=== PATIENT | female | born 1965 | race Caucasian/White ===

== ENCOUNTER → 2016-08-03 | Outpatient (CLI) | payer OTHER ==
[2016-08-03 09:00] LABS: CHLORIDE,CL 106 mmol/L (98-110); SODIUM,NA 143 mmol/L (136-146)
== END ==
LOC: MW.CHFP 08:20
PROVIDERS: ATTEND Student in an Organized Health Care Education/Training Program
DX: I10 Essential (primary) hypertension (principal); E11.65 Type 2 diabetes mellitus with hyperglycemia
CPT/HCPCS: 36415; 80053; 80061; 82044; 83036

== ENCOUNTER 2016-09-16 17:25 | Emergency (ER) | payer OTHER ==
--- NOTE | 2016-09-16 17:54 | EDM.PDOC ---
ED HPI GENERAL MEDICAL PROBLEM - General Chief Complaint: General Stated Complaint: TOOTH PAIN Time Seen by Provider: 09/16/16 17:44 Source of Information: Reports: Patient History Limitations: Reports: No Limitations - History of Present Illness INITIAL COMMENTS - FREE TEXT/NARRATIVE: HISTORY AND PHYSICAL: [] History of Present Illness: [] Review of Systems: As per history of present illness and below otherwise all systems reviewed and negative. Past medical history: As per history of present illness and as reviewed below otherwise noncontributory. Surgical history: As per history of present illness and as reviewed below otherwise noncontributory. Social history: No reported history of drug or alcohol abuse. Family history: As per history of present illness and as reviewed below otherwise noncontributory. Physical exam: HEENT: Atraumatic, normocehpalic, pupils reactive, negative for conjunctival pallor or scleral icterus, mucous membranes moist, throat clear, neck supple, nontender, trachea midline. tooth #14 fractured Lungs: Clear to auscultation, breath sounds equal bilaterally, chest non tender. Heart: S1S2, regular, negative for clicks, rubs, or JVD. Abdomen: Soft, nondistended, nontender. Negative for masses or hepatossplenmegaly. Negative for costovertebral tenderness. Pelvis: Stable nontender. Genitourinary: Deferred. Rectal: Deferred Extremities: Atraumatic, negative for cords or calf pain. Neurovascular unremarkable. Neuro: Awake, alert, oriented. Cranial nerves II through XII unremarkable. Cerebellum unremarkable. Motor and sensory unremarkable throughout. Exam nonfocal. Diagnostics: [] Therapeutics: [tooth cement] Impression: [fractured tooth] Plan: [dental balls home see a dentist for repair of tooth #14] Definitive disposition and diagnosis as appropriate pending reevaluation and review of above. Duration: Hour(s): Location: Reports: Face Quality: Reports: Throbbing Severity: Moderate Improves with: Reports: None Worsens with: Reports: None Associated Symptoms: Reports: No Other Symptoms - Related Data Allergies Allergy/AdvReac Type Severity Reaction Status Date / Time No Known Allergies Allergy Verified 09/16/16 17:49 Home Meds: Home Meds Hydrochlorothiazide 12.5 mg PO DAILY 09/16/16 [History] buPROPion HCl [Wellbutrin Xl] 300 mg PO DAILY 09/16/16 [History] metFORMIN HCl [Metformin HCl] 500 mg PO BID 09/16/16 [History] ED ROS GENERAL - Review of Systems Review Of Systems: ROS reveals no pertinent complaints other than HPI. ED EXAM, GENERAL - Physical Exam Exam: See Below (see dictation) Departure - Departure Time of Disposition: 18:26 Disposition: Home, Self-Care 01 Condition: good Clinical Impression: Fractured tooth Qualifiers: Encounter type: initial encounter Fracture type: open Qualified Code(s): S02.5XXB - Fracture of tooth (traumatic), initial encounter for open fracture - Discharge Information Forms: ED Department Discharge Additional Instructions: The following information is given to patients seen in the emergency department who are being discharged to home. This information is to outline your options for follow-up care. We provide all patients seen in our emergency department with a follow-up referral. The need for follow-up, as well as the timing and circumstances, are variable depending upon the specifics of your emergency department visit. If you don't have a primary care physician on staff, we will provide you with a referral. We always advise you to contact your personal physician following an emergency department visit to inform them of the circumstance of the visit and for follow-up with them and/or the need for any referrals to a consulting specialist. The emergency department will also refer you to a specialist when appropriate. This referral assures that you have the opportunity for followup care with a specialist. All of these measure are taken in an effort to provide you with optimal care, which includes your followup. Under all circumstances we always encourage you to contact your private physician who remains a resource for coordinating your care. When calling for followup care, please make the office aware that this follow-up is from your recent emergency room visit. If for any reason you are refused follow-up, please contact the [facility] emergency department at and asked to speak to the emergency department charge nurse. You must see a dentist to have this fractured tooth repaired Dental bowels will be given to you here apply as needed for discomfort
[2016-09-16] MEDS ORDERED: Benzocaine 20% Topical Spray UD MUCMEM ONE (18:27)
[2016-09-16] MEDS ORDERED: Lidocaine 2% Viscous Solution 15 ML Cup PO ONE (18:27)
[2016-09-16 18:41] VITALS: BP 147/68
== END 2016-09-16 18:39 | disposition home or self-care (01) ==
LOC: MW.ED 17:25
DX: S02.5XXB Fracture of tooth (traumatic), initial encounter for open fracture (principal); Z79.899 Other long term (current) drug therapy; X58.XXXA Exposure to other specified factors, initial encounter
CPT/HCPCS: 99282; A9270

== ENCOUNTER 2017-06-28 11:56 | Day surgery (SDC) | payer OTHER ==
[~2017-06-28 11:56] MED LIST: Acetaminophen/HYDROcodone 325-5 MG Tab PO PRN; Lactated Ringers 1,000 ML IV SCH; Lidocaine 1% 20 ML MDV ONE; ceFAZolin 2 GM in Premix Bag 1 BAG IV SCH
[2017-06-28] MEDS ORDERED: Lidocaine 2% 5 ML SDV ONE (12:27)
[2017-06-28] MEDS ORDERED: Midazolam 1 MG/ML 2 ML SDV ONE (12:27)
[2017-06-28] MEDS ORDERED: Propofol 200 MG/20 ML SDV ONE (12:27)
[2017-06-28] MEDS ORDERED: Dexamethasone 4 MG/ML 5 ML MDV ONE (12:27)
[2017-06-28] MEDS ORDERED: fentaNYL 250 MCG/5 ML SDV ONE (12:27)
[2017-06-28] MEDS ORDERED: Ondansetron 4 MG/2 ML SDV ONE (12:27)
--- NOTE | 2017-06-28 14:39 | PCM.PREANE ---
Preanesthetic Assessment - Anesthesia/Transfusion/Family Hx Anesthesia History: Prior Anesthesia Without Reaction Other Type of Anesthesia Reaction Comment: "I am hard to wake & at times have N& V after surgery" Family History of Anesthesia Reaction: No Transfusion History: No Prior Transfusion(s) - Review of Systems Other: Reports: None - Physical Assessment NPO Status Date: 06/28/17 NPO Status Time: 04:00 O2 Sat by Pulse Oximetry: 95 Respiratory Rate: 16 Vital Signs: Last Vital Signs Temp 36.7 C 06/28/17 13:45 Pulse 75 06/28/17 13:45 Resp 16 06/28/17 13:45 BP 178/93 H 06/28/17 13:45 Pulse Ox 95 06/28/17 13:45 Height: 5 ft 3 in Weight: 99.79 kg ASA Class: 3 Mental Status: Alert & Oriented x3 Airway Class: Mallampati = 1 Dentition: Reports: Normal Dentition Thyro-Mental Finger Breadths: 2 Mouth Opening Finger Breadths: 3 ROM/Head Extension: Full - Allergies Allergies/Adverse Reactions: Allergies Allergy/AdvReac Type Severity Reaction Status Date / Time No Known Allergies Allergy Verified 06/26/17 08:13 - Blood Blood Available: No - Acknowledgements Anesthesia Type Planned: General Anesthesia (LMA) Pt an Appropriate Candidate for the Planned Anesthesia: Yes Alternatives and Risks of Anesthesia Discussed w Pt/Guardian: Yes Pt/Guardian Understands and Agrees with Anesthesia Plan: Yes PreAnesthesia Questionnaire Cardiovascular History: Reports: Hypertension Gastrointestinal History: Reports: Other (See Below) Other Gastrointestinal History: occasional heartburn Genitourinary History: Reports: Renal Calculus 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: Musculoskeletal History: Reports: Osteoarthritis Psychiatric History: Reports: Anxiety, Depression Endocrine/Metabolic History: Reports: Diabetes, Type II, Obesity/BMI 30+ Dermatologic History: Reports: Psoriasis - Past Surgical History Head Surgeries/Procedures: Reports: None GI Surgical History: Reports: Cholecystectomy, Hernia, Abdominal Female Surgical History: Reports: Hysterectomy, Tubal Ligation Musculoskeletal Surgical History: Reports: Arthroscopic Knee - SUBSTANCE USE Smoking Status *Q: Former Smoker Second Hand Smoke Exposure: No Recreational Drug Use History: No - HOME MEDS Home Medications: Home Meds Hydrochlorothiazide 12.5 mg PO DAILY 09/16/16 [History] buPROPion HCl [Wellbutrin Xl] 300 mg PO DAILY 09/16/16 [History] metFORMIN HCl [Metformin HCl] 500 mg PO BID 09/16/16 [History] Ibuprofen 3 tab PO ASDIRECTED PRN 06/26/17 [History] Lisinopril 10 mg PO DAILY 06/26/17 [History] Acetaminophen/HYDROcodone [[place] 325-5 MG] 1 - 2 tab PO Q4H PRN #80 tablet 06/28 [Rx] - CURRENT (IN HOUSE) MEDS Current Meds: Current Medications Hydrocodone Bitart/Acetaminophen ([place] 325-5 Mg) 1 - 2 tab PO Q4H PRN PRN Reason: Pain Cefazolin Sodium/Dextrose 2 gm (/ Premix) 50 mls @ 100 mls/hr IV ONCALL IAN Lactated Ringer's (Ringers, Lactated) 1,000 mls @ 100 mls/hr IV ASDIRECTED IAN Discontinued Medications Dexamethasone (Dexamethasone) Confirm Administered Dose 20 mg .ROUTE .STK-MED ONE Stop: 06/28/17 12:28 Fentanyl (Sublimaze) Confirm Administered Dose 250 mcg .ROUTE .STK-MED ONE Stop: 06/28/17 12:28 Lidocaine (Xylocaine-Mpf 2%) Confirm Administered Dose 5 ml .ROUTE .STK-MED ONE Stop: 06/28/17 12:28 Lidocaine HCl (Xylocaine 1%) Confirm Administered Dose 20 ml .ROUTE .STK-MED ONE Stop: 06/28/17 07:31 Midazolam HCl (Versed 1 Mg/Ml) Confirm Administered Dose 2 mg .ROUTE .STK-MED ONE Stop: 06/28/17 12:28 Ondansetron HCl (Zofran) Confirm Administered Dose 4 mg .ROUTE .STK-MED ONE Stop: 06/28/17 12:28 Propofol (Diprivan 20 Ml) Confirm Administered Dose 200 mg .ROUTE .STK-MED ONE Stop: 06/28/17 12:28
[2017-06-28] MEDS ORDERED: Ketorolac 30 MG/ML SDV ONE (14:44)
[2017-06-28] MEDS ORDERED: Labetalol 100 MG/20 ML MDV ONE (14:52)
--- NOTE | 2017-06-28 15:13 | PCM.OPNOTE ---
- General Post-Op/Procedure Note Date of Surgery/Procedure: 06/28/17 Operative Procedure(s): L knee scope with PLM/PMM Post-Op Diagnosis: DJD left knee, left knee med/lat meniscus tear Anesthesia Technique: General LMA Primary Surgeon: Sneha Montague Technical Documentation Specialist: Sravani Auguste in mLs: 5 Condition: Good Free Text/Narrative:: tt=19 min #[id number]
[2017-06-28] MEDS ORDERED: fentaNYL 100 MCG/2 ML SDV IVPUSH PRN (15:26)
--- NOTE | 2017-06-28 15:33 | PCM.POSTAN ---
POST ANESTHESIA ASSESSMENT - MENTAL STATUS Mental Status: Alert, Oriented - VITAL SIGNS Pulse Rate: 83 SaO2: 100 Resp Rate: 10 Blood Pressure: 151/78 - RESPIRATORY Respiratory Status: Respiratory Rate WNL, Airway Patent, O2 Saturation Stable - CARDIOVASCULAR CV Status: Pulse Rate WNL, Blood Pressure Stable - GASTROINTESTINAL GI Status: No Symptoms - PAIN Pain Score: 6 (Required supplement narcotic in PAR) - POST OP HYDRATION Hydration Status: Adequate & Stable
[2017-06-28] MEDS: fentaNYL 100 MCG/2 ML SDV IVPUSH PRN ×3 (15:36→16:15)
--- NOTE | 2017-06-28 16:06 | OR ---
SURGEON: Sneha Montague MD DATE OF PROCEDURE: 06/28/2017 PREOPERATIVE DIAGNOSES: 1. Degenerative joint disease, left knee. 2. Left knee medial meniscus tear. POSTOPERATIVE DIAGNOSES: 1. Degenerative joint disease, left knee. 2. Left knee medial meniscus tear. 3. Left knee lateral meniscus tear. PROCEDURES: Left knee arthroscopy with partial medial and lateral meniscectomy. ORE MINER BLASTING: Sravani Auguste RN. ANESTHESIA: General. ESTIMATED BLOOD LOSS: 5 mL. TOURNIQUET TIME: 19 minutes. COMPLICATIONS: None. DVT PROPHYLAXIS: Not indicated. IMPLANTS USED: None. BRIEF HISTORY: Inge is a 52-year-old female, who has had complaint of progressive left knee pain. She had tried cortisone injections, which gave her minimal relief. An MRI did show a tear of the medial meniscus along with degenerative changes. Due to her lack of response to conservative treatment, I did recommend surgical intervention. The risks and goals of the procedure were discussed with the patient and were documented preoperatively. She agreed to proceed. DESCRIPTION OF PROCEDURE: The patient was properly identified and brought to the operating room. She was transferred from the OR cart and placed on the operating room table in supine position. General anesthesia was administered. After adequate anesthesia was obtained, a well-padded tourniquet was applied to the left lower extremity. The left lower extremity was then prepped in standard fashion using ChloraPrep solution. It was then sterilely draped. A time-out was performed to ensure correct site and procedure. Preoperative antibiotics were given. The surgical site had been marked preoperatively. An Esmarch was used to exsanguinate the left lower extremity and the tourniquet was inflated to 250 mmHg. A lateral portal was established. Blunt trocar and cannula were introduced into the suprapatellar space. Camera, inflow, and outflow were assembled. No significant synovitis was noted in the suprapatellar space. The patellofemoral joint was then visualized. Extensive degenerative changes including grade 3 to grade 4 chondromalacia was noted along the undersurface of the patella as well as the trochlear groove. The patella appeared to track centrally. I then extended down the lateral gutter. No loose bodies were identified, however, an osteophyte was noted along the lateral femoral condyle. I then extended down the medial gutter. No loose bodies were identified. I then entered the medial compartment. A medial portal was then established. A blunt probe was inserted. A radial tear along with degenerative fraying was noted along the posterior horn of the medial meniscus. Using a combination of biters and shaver, this was resected back to a stable remnant. It was again probed and found to be stable. The joint surfaces showed extensive degenerative changes consistent with grade 3 to grade 4 chondromalacia diffusely along the medial tibial plateau as well as the medial femoral condyle. Chondroplasty of both was performed with the shaver. I then entered the notch. Both the ACL and PCL were visualized and probed and found to be intact. Finally, I entered the lateral compartment. Again, extensive degenerative changes consistent with grade 3 chondromalacia was noted along the lateral tibial plateau as well as the lateral femoral condyle. Degenerative fraying was noted with the meniscus and a partial lateral meniscectomy was performed using a combination of biters and shaver. The meniscus was again probed and found to be stable. I then re-entered the patellofemoral joint. A shaver was used to remove a portion of the fat pad to allow for visualization. Chondroplasty of the trochlear groove was also performed. The instruments were then removed from the knee. The portal sites were closed with 3-0 nylon. 1% Lidocaine was injected along the portal tracts. Xeroform gauze was placed over the wound and a bulky dressing was applied. The tourniquet was then deflated. She was awakened from her anesthetic and transferred back to the operating room cart. She was brought to recovery room in stable condition. All needle and sponge counts were correct. BABATUNDE / ROBIN /[id number]
[2017-06-28 18:06] VITALS: BP 148/85
== END 2017-06-28 17:20 | disposition home or self-care (01) ==
LOC: MW.SDS 11:56
PROVIDERS: ATTEND Orthopaedic Surgery
DX: M17.12 Unilateral primary osteoarthritis, left knee (principal); S83.242A Other tear of medial meniscus, current injury, left knee, initial encounter; S83.282A Other tear of lateral meniscus, current injury, left knee, initial encounter; E11.9 Type 2 diabetes mellitus without complications; I10 Essential (primary) hypertension; F41.9 Anxiety disorder, unspecified; F32.9 Major depressive disorder, single episode, unspecified; E66.9 Obesity, unspecified; Z68.38 Body mass index [BMI] 38.0-38.9, adult; Z87.891 Personal history of nicotine dependence; Z79.84 Long term (current) use of oral hypoglycemic drugs; Z79.899 Other long term (current) drug therapy
CPT/HCPCS: 29880; 82962; 88304; A9270; J1100; J1885; J2250; J2405; J3010; J2704

== ENCOUNTER 2018-06-04 06:24 | Inpatient (IN) | payer OTHER ==
[~2018-06-04 06:24] MED LIST changes: +Acetaminophen 1,000 MG in Premix Bag 1 BAG IV SCH; -Acetaminophen/HYDROcodone 325-5 MG Tab PO PRN; +Famotidine 20 MG/2 ML SDV IVPUSH SCH; +Ketorolac 30 MG/ML SDV IVPUSH SCH; -Lactated Ringers 1,000 ML IV SCH; -Lidocaine 1% 20 ML MDV ONE; +Scopolamine 1.5 MG Transdermal Patch TRDERM SCH; -ceFAZolin 2 GM in Premix Bag 1 BAG IV SCH
[2018-06-04] MEDS: Lactated Ringers 1,000 ML IV SCH ×2 (06:52→19:44)
--- NOTE | 2018-06-04 07:07 | PCM.PREANE ---
Preanesthetic Assessment - Anesthesia/Transfusion/Family Hx Anesthesia History: Prior Anesthesia Without Reaction Other Type of Anesthesia Reaction Comment: "I am hard to wake & at times have N& V after surgery" Family History of Anesthesia Reaction: No Transfusion History: No Prior Transfusion(s) Intubation History: Unknown - Review of Systems General: No Symptoms Pulmonary: No Symptoms Cardiovascular: No Symptoms Gastrointestinal: No Symptoms Neurological: No Symptoms Other: Reports: None - Physical Assessment O2 Sat by Pulse Oximetry: 96 Respiratory Rate: 16 Vital Signs: Last Vital Signs Temp 36.2 C 06/04/18 07:02 Pulse 80 06/04/18 07:02 Resp 16 06/04/18 07:02 BP 183/98 H 06/04/18 07:02 Pulse Ox 96 06/04/18 07:02 Height: 1.6 m Weight: 101.605 kg ASA Class: 3 Mental Status: Alert & Oriented x3 Airway Class: Mallampati = 2 Dentition: Reports: Normal Dentition Thyro-Mental Finger Breadths: 3 Mouth Opening Finger Breadths: 3 ROM/Head Extension: Full Lungs: Clear to Auscultation, Normal Respiratory Effort Cardiovascular: Regular Rate, Regular Rhythm - Allergies Allergies/Adverse Reactions: Allergies Allergy/AdvReac Type Severity Reaction Status Date / Time artificial sweetners Allergy Headache Uncoded 05/30/18 14:08 - Blood Blood Available: No - Anesthesia Plan Pre-Op Medication Ordered: None - Acknowledgements Anesthesia Type Planned: Spinal (general anesthesia back-up plan) Pt an Appropriate Candidate for the Planned Anesthesia: Yes Alternatives and Risks of Anesthesia Discussed w Pt/Guardian: Yes Pt/Guardian Understands and Agrees with Anesthesia Plan: Yes PreAnesthesia Questionnaire Cardiovascular History: Reports: Hypertension Gastrointestinal History: Reports: Other (See Below) Other Gastrointestinal History: occasional heartburn Genitourinary History: Reports: Renal Calculus 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: Musculoskeletal History: Reports: Osteoarthritis Neurological History: Reports: None Psychiatric History: Reports: Anxiety, Depression Endocrine/Metabolic History: Reports: Diabetes, Type II, Obesity/BMI 30+ (BMI 39.7) Hematologic History: Reports: None Immunologic History: Reports: None Oncologic (Cancer) History: Reports: None Dermatologic History: Reports: Psoriasis - Past Surgical History Head Surgeries/Procedures: Reports: None GI Surgical History: Reports: Cholecystectomy, Hernia, Abdominal Female Surgical History: Reports: Hysterectomy, Tubal Ligation Musculoskeletal Surgical History: Reports: Arthroscopic Knee Other Musculoskeletal Surgeries/Procedures:: hx thor knee arthroscopies - SUBSTANCE USE Smoking Status *Q: Former Smoker Tobacco Use Within Last Twelve Months: No Recreational Drug Use History: No - HOME MEDS Home Medications: Home Meds Hydrochlorothiazide 12.5 mg PO DAILY 09/16/16 [History] metFORMIN HCl [Metformin HCl] 500 mg PO BID 09/16/16 [History] Ibuprofen 3 tab PO ASDIRECTED PRN 06/26/17 [History] Lisinopril 10 mg PO DAILY 06/26/17 [History] Gabapentin [Neurontin] 1 tab PO ACBREAKFAST 05/30/18 [History] Gabapentin [Neurontin] 2 tab PO BEDTIME 05/30/18 [History] busPIRone HCl [Buspirone HCl] 7.5 mg PO BID 05/30/18 [History] - CURRENT (IN HOUSE) MEDS Current Meds: Current Medications Famotidine (Pepcid) 40 mg IVPUSH ONARRIVE [facility] Last Admin: 06/04/18 06:53 Dose: 40 mg Acetaminophen 1,000 mg/ Premix 100 mls @ 400 mls/hr IV ONARRIVE [facility] Last Admin: 06/04/18 06:58 Dose: 400 mls/hr Cefazolin Sodium/Dextrose 2 gm (/ Premix) 50 mls @ 100 mls/hr IV ONCALL IAN Lactated Ringer's (Ringers, Lactated) 1,000 mls @ 100 mls/hr IV ASDIRECTED [facility] Last Admin: 06/04/18 06:52 Dose: 100 mls/hr Tranexamic Acid 2,000 mg/ (Sodium Chloride) 120 mls @ 600 mls/hr IV ASDIRECTED ONE Stop: 06/04/18 08:11 Ropivacaine 49.25 ml/Ketorolac Tromethamine 30 mg/Epinephrine HCl 0.5 mg/ Sodium Chloride 100 mls @ 3,000 mls/hr INJECT ASDIRECTED [facility] Ketorolac Tromethamine (Toradol) 30 mg IVPUSH ONARRIVE [facility] Last Admin: 06/04/18 06:55 Dose: 30 mg Scopolamine (Transderm-Scop) 1.5 mg TRDERM ONARRIVE [facility] Last Admin: 06/04/18 06:53 Dose: 1.5 mg Discontinued Medications Ropivacaine 49.25 ml/Ketorolac Tromethamine 30 mg/Epinephrine HCl 0.5 mg/ Clonidine HCl 80 mcg/ Sodium Chloride 100 mls @ 50 mls/sec INJECT ASDIRECTED IAN
[2018-06-04] MEDS ORDERED: Propofol 200 MG/20 ML SDV ONE (07:24)
[2018-06-04] MEDS ORDERED: fentaNYL 100 MCG/2 ML SDV ONE (07:24)
[2018-06-04] MEDS ORDERED: Lidocaine 2% 5 ML SDV ONE (07:24)
[2018-06-04] MEDS ORDERED: Midazolam 1 MG/ML 2 ML SDV ONE ×2 (07:25→08:41)
[2018-06-04] MEDS ORDERED: Ondansetron 4 MG/2 ML SDV ONE (07:25)
[2018-06-04] MEDS ORDERED: ceFAZolin 2 GM in Premix Bag 1 BAG IV SCH (08:00)
[2018-06-04] MEDS ORDERED: Ropivacaine 49.25 ML, Ketorolac 30 MG, EPINEPHrine 0.5 MG in Sodium Chloride 0.9% 49.25 ML INJECT SCH (08:00)
[2018-06-04] MEDS ORDERED: Ropivacaine 49.25 ML, Ketorolac 30 MG, EPINEPHrine 0.5 MG, cloNIDine 80 MCG in Sodium C... INJECT SCH (08:00)
[2018-06-04] MEDS ORDERED: Tranexamic Acid 2,000 MG in Sodium Chloride 0.9% 100 ML IV ONE (08:00)
[2018-06-04] MEDS ORDERED: ceFAZolin 1 GM Vial ONE (08:16)
[2018-06-04] MEDS ORDERED: Bisacodyl 10 MG Supp RECTAL PRN (09:44)
[2018-06-04] MEDS ORDERED: Ondansetron 4 MG/2 ML SDV IVPUSH PRN (09:44)
[2018-06-04] MEDS ORDERED: Morphine PF 30 MG/30 ML PCA Vial IV PRN (09:44)
[2018-06-04] MEDS ORDERED: Docusate Sodium 100 MG Cap PO PRN (09:44)
[2018-06-04] MEDS ORDERED: Sodium Chloride 0.9% 10 ML Syringe FLUSH PRN (09:44)
[2018-06-04] MEDS ORDERED: Aluminum Hydroxide/Magnesium Hydroxide/Simethicone Susp 30 ML Cup PO PRN (09:44)
[2018-06-04] MEDS ORDERED: diphenhydrAMINE 25 MG Cap PO PRN (09:44)
[2018-06-04] MEDS ORDERED: Sodium Chloride 0.9% 2.5 ML Syringe FLUSH PRN (09:44)
--- NOTE | 2018-06-04 10:10 | PCM.OPNOTE ---
- General Post-Op/Procedure Note Date of Surgery/Procedure: 06/04/18 Operative Procedure(s): L TKA Post-Op Diagnosis: DJD L knee Anesthesia Technique: Moderate Sedation, Spinal Primary Surgeon: Sneha Montague Newspaper Delivery Driver: Joan Chilel Newspaper Delivery Driver: Melissa Sol EBAngella in mLs: 50 Condition: Good Free Text/Narrative:: tt=43 min #[id number]
[2018-06-04] MEDS ORDERED: Atropine 0.1 MG/ML 10 ML Syringe IVPUSH PRN ×2 (10:27)
[2018-06-04] MEDS ORDERED: 50% Dextrose in Water 50 ML Syringe IVPUSH PRN (10:27)
[2018-06-04] MEDS ORDERED: EPINEPHrine 1:10,000 1 MG/10 ML Syringe IVPUSH PRN (10:27)
[2018-06-04] MEDS ORDERED: Naloxone 0.4 MG/ML Syringe IVPUSH PRN (10:27)
[2018-06-04] MEDS ORDERED: fentaNYL 100 MCG/2 ML SDV IVPUSH PRN (10:27)
--- NOTE | 2018-06-04 12:07 | PCM.CONS ---
H&P History of Present Illness - General Date of Service: 06/04/18 Admit Problem/Dx: Admission Diagnosis/Problem Admission Diagnosis/Problem Left knee pain Source of Information: Patient History Limitations: Reports: No Limitations - History of Present Illness Initial Comments - Free Text/Narative: Pt admitted under orthopedic service for a TKA done today. We are being consulted for the pts history of DM2 and HTN. Pt states both blood pressure and DM2 have been well controlled. Pt on HCT/Lisinopril for HTN and Metformin with DM2. - Related Data Allergies/Adverse Reactions: Allergies Allergy/AdvReac Type Severity Reaction Status Date / Time artificial sweetners Allergy Headache Uncoded 06/04/18 07:29 Home Medications: Home Meds Hydrochlorothiazide 12.5 mg PO DAILY 09/16/16 [History] metFORMIN HCl [Metformin HCl] 500 mg PO BID 09/16/16 [History] Ibuprofen 3 tab PO ASDIRECTED PRN 06/26/17 [History] Lisinopril 10 mg PO DAILY 06/26/17 [History] Gabapentin [Neurontin] 1 tab PO ACBREAKFAST 05/30/18 [History] Gabapentin [Neurontin] 2 tab PO BEDTIME 05/30/18 [History] busPIRone HCl [Buspirone HCl] 7.5 mg PO BID 05/30/18 [History] Past Medical History Cardiovascular History: Reports: Hypertension Gastrointestinal History: Reports: Other (See Below) Other Gastrointestinal History: occasional heartburn Genitourinary History: Reports: Renal Calculus 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: Musculoskeletal History: Reports: Osteoarthritis Neurological History: Reports: None Psychiatric History: Reports: Anxiety, Depression Endocrine/Metabolic History: Reports: Diabetes, Type II, Obesity/BMI 30+ (BMI 39.7) Hematologic History: Reports: None Immunologic History: Reports: None Oncologic (Cancer) History: Reports: None Dermatologic History: Reports: Psoriasis - Past Surgical History Head Surgeries/Procedures: Reports: None GI Surgical History: Reports: Cholecystectomy, Hernia, Abdominal Female Surgical History: Reports: Hysterectomy, Tubal Ligation Musculoskeletal Surgical History: Reports: Arthroscopic Knee Other Musculoskeletal Surgeries/Procedures:: hx thor knee arthroscopies Social & Family History - Family History Family Medical History: Noncontributory - Tobacco Use Smoking Status *Q: Former Smoker Used Tobacco, but Quit: Yes Month/Year Tobacco Last Used: quit smoking 8 years ago - Caffeine Use Caffeine Use: Reports: Coffee, Soda, Tea Other Caffeine Use: 1-3 cups per day - Recreational Drug Use Recreational Drug Use: No H&P Review of Systems - Review of Systems: Review Of Systems: See Below Exam - Exam Exam: See Below - Vital Signs Vital Signs: Last Vital Signs Temp 36.2 C 06/04/18 12:06 Pulse 58 L 06/04/18 12:06 Resp 17 06/04/18 12:06 BP 119/68 06/04/18 12:06 Pulse Ox 96 06/04/18 12:06 Weight: 101.605 kg - Exam General: Alert, Oriented, Mild Distress Lungs: Clear to Auscultation, Normal Respiratory Effort Cardiovascular: Regular Rate, Regular Rhythm - Patient Data Lab Results Last 24 hrs: Laboratory Results - last 24 hr 06/04/18 06/04/18 Range/Units 07:00 10:51 POC Glucose 144 H (60-110) mg/dL Blood Type O POSITIVE Antibody Screen NEGATIVE Consult PN Assessment/Plan Procedures: Procedures COMPREHEN METABOLIC PANEL (05/19/17) EMERGENCY DEPT VISIT (09/16/16) GLUCOSE BLOOD TEST (06/28/17) GLYCOSYLATED HEMOGLOBIN TEST (05/19/17) KNEE ARTHROSCOPY/SURGERY (06/28/17) LIPID PANEL (05/19/17) METABOLIC PANEL TOTAL CA (04/12/16) MRI JNT OF LWR EXTRE W/O DYE (04/30/18) ROUTINE VENIPUNCTURE (05/19/17) TISSUE EXAM BY PATHOLOGIST (06/28/17) UR ALBUMIN SEMIQUANTITATIVE (05/19/17) X-RAY EXAM OF KNEE 1 OR 2 (05/05/16) X-RAY EXAM OF KNEE 3 (04/12/16) Problem List Initiated/Reviewed/Updated: Yes My Orders Last 24 Hours: My Active Orders 06/04/18 12:05 Blood Glucose Check, Bedside [RC] QIDACANDBED 06/04/18 17:00 Insulin Aspart [NovoLOG] See Protocol SUBCUT TIDAC Plan: 53-year-old female presenting for a total knee surgical intervention per orthopedics being consulted for management of type 2 diabetes and blood sugar control as well as hypertension. Glucose checks 4 times a day as well as insulin sliding scale low dose per protocol Watch hypertension levels to ensure that we're adequately control the patient's high blood pressures Anticoagulation per orthopedics when deemed necessary.
[2018-06-04] MEDS: Ketorolac 30 MG/ML SDV IVPUSH SCH ×2 (13:34→19:22)
[2018-06-04] MEDS: Acetaminophen 1,000 MG in Premix Bag 1 BAG IV SCH ×2 (13:38→18:33)
--- NOTE | 2018-06-04 14:07 | OR ---
SURGEON: Sneha Montague MD DATE OF PROCEDURE: 06/04/2018 PREOPERATIVE DIAGNOSIS: Degenerative joint disease, left knee, tricompartmental. POSTOPERATIVE DIAGNOSIS: Degenerative joint disease, left knee, tricompartmental. PROCEDURE: Left total knee arthroplasty using patient specific instrumentation. ASSISTANTS: 1. Joan Chilel PA-C. 2. MANJIT Lafleur. ANESTHESIA: Spinal with sedation. ESTIMATED BLOOD LOSS: 50 mL. TOURNIQUET TIME: 43 minutes. COMPLICATIONS: None. DVT PROPHYLAXIS: PAS boot and WANG hose to the nonoperative leg. IMPLANTS USED: Lane Persona femoral component size 8 standard (LPS), tibial component size F, 11-mm all-polyethylene articular surface, and 35-mm all-polyethylene patella. FINDINGS: Intraoperative findings showed severe tricompartmental degenerative changes with osteophyte formation. No significant synovitis was noted. BRIEF HISTORY: Inge is a 53-year-old female who has had complaint of progressive left knee pain. 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 Due to her lack of response to conservative treatment, I did recommend surgical intervention. The risks and goals of the procedure were discussed with the patient and were documented preoperatively. She agreed to DESCRIPTION OF PROCEDURE: The patient was properly identified and brought to the operating room. The patient was then transferred from the operating room cart and placed on the operating table in a supine position. Anesthesia was administered by the anesthesia staff. After adequate anesthesia was obtained, a well-padded tourniquet was applied to the surgical lower extremity. Bruner catheter was placed. The lower extremity was then prepped in standard fashion using ChloraPrep solution. It was then sterilely draped. A time-out was performed to ensure correct site and procedure. Preoperative antibiotics were given along with one gram of tranexamic acid IV. The surgical site had been marked preoperatively. An Esmarch was used to exsanguinate the right lower extremity and the tourniquet was inflated. An incision was made over the anterior aspect of the knee. The subcutaneous tissues were dissected down to the level of the fascia. A medial parapatellar approach to the knee was made. A portion of the infrapatellar fat pad was then excised. The distal femur was then exposed. The femoral patient-specific cutting guide was then placed. Pins were also placed. The distal femoral cutting block was placed and the distal femoral cut was made. Instrumentation was then removed. Both Whitesides' line and the epicondylar axis were then marked with electrocautery. The 4-in-1 cutting block was placed. This was placed in a slightly externally rotated position, which corresponded well with the previously drawn lines. The cutting guide was then pinned into position. An Moiz wing guide was used to check the depth of resection of our anterior condylar cut and it was felt that no notching would occur. The anterior condylar cut was then made followed by the posterior condylar cut. Both the posterior chamfer and anterior chamfer cuts were then made. The cutting block was then removed along with the excess bony remnants. We then turned our attention to the tibia. The anterior cruciate ligament and posterior cruciate ligament were released and a posterior cruciate ligament retractor was placed to allow the tibia to be pulled anteriorly. The tibial patient-specific guide was then placed on the proximal tibia. This fit anatomically. The pins were then placed. The proximal tibia cutting guide was then placed and screwed into position. The proximal tibial resection was then made with care being taken to protect the patellar tendon. The bony resection was then removed. The remainder of the medial and lateral meniscus were then excised. Care was taken to protect the popliteus tendon. The tibia was then sized to the appropriate size. The distal femur was then elevated. The posterior capsule was stripped off the distal femur both medially and laterally. The posterior capsule along with the medial and lateral gutters were then injected with a standard mixture consisting of clonidine, epinephrine, Toradol, and Ropivacaine, unless any allergies were found preoperatively. The femoral component was then placed onto the distal femur in a slightly lateral position. This fit the femur well. A box cut was then made without difficulty. This was then removed. The tibial trial along with the polyethylene liner was then placed. The knee came easily into full extension and was stable to varus and valgus stressing both in full extension and flexion. Any additional releases were performed at this time. We then returned our attention to the patella. The patella was everted and towel clamps were used to hold the patella in position. It was resected to a 15 millimeter thickness. It was then sized to the appropriate size. It was prepared in the usual fashion after placing the predetermined size clamps. This was placed in a slightly superior and medial position. The clamp was then removed. The patellar trial button was placed. The knee was taken through a range of motion using the no-touch technique. The patella tracked centrally. A drop chavez was then placed to check alignment. All instruments were then removed from the knee. The tibial sizer was then placed on the tibia. The tibia was prepared in the usual fashion using the reamer and broach. This was then removed. All bony surfaces were copiously irrigated with Pulsavac solution. They were then suctioned dry. Cement was prepared on the back table in the usual manner. Once it was prepared, the bone ends were again suctioned dry. The tibia was cemented into place first. This was malleted into position. Excess cement was then cleared. The femur was then placed in a similar manner. We placed the polyethylene trial into place and the knee was brought into full extension. An axial load was placed while keeping the knee in full extension. The patella button was also cemented into position and the clamp was used to hold this in place as the cement was allowed to cure. The wound was again copiously irrigated with saline solution using a Pulsavac unarmed security officer. Following this 1 g of tranexamic acid was applied to the wound topically. After we had adequate curing of the cement, the knee was again taken through a range of motion. The size of the polyethylene was then determined. The polyethylene trial was then removed. The tibial tray was suctioned to make sure there was no remaining soft tissue or cement. Excess cement was cleared from around the edges of the prosthesis as well. The tourniquet was then deflated. We were able to observe for any excess bleeding and none was noted. Electrocautery was used to maintain hemostasis. An additional gram of tranexamic acid was given IV. The retractors were again placed and the predetermined polyethylene was then placed. This was locked into position without difficulty. The knee was again taken through a range of motion with no change from the prior exam. The fascial layer was closed with Number One Vicryl. The subcutaneous tissues were closed with 2-0 Vicryl. The skin was closed with alicia. Xeroform gauze was placed over the wound and a bulky dressing was applied. The patient was then awakened from anesthesia and transferred back to the operating room cart. They were brought to the recovery room in stable condition. All needle and sponge counts were correct. BABATUNDE / ROBIN /[id number]
[2018-06-04] MEDS: oxyCODONE 5 MG Tab PO PRN ×2 (14:31→22:20)
[2018-06-04] MEDS: HYDROmorphone 1 MG/ML Syringe IV PRN ×2 (15:16→18:30)
[2018-06-04] MEDS: ceFAZolin 2 GM in Premix Bag 1 BAG IV SCH (15:24)
--- NOTE | 2018-06-04 16:20 | CR ---
EXAMINATION: Left knee HISTORY: Arthroplasty COMPARISON: 05/05/2016 TECHNIQUE: 2 views FINDINGS/IMPRESSION: Postoperative films demonstrate left total knee hardware in good position and alignment. Postoperative soft tissue changes demonstrated.
[2018-06-04] MEDS: Insulin Aspart 100 Units/ML 3 ML Pen SUBCUT SCH (17:38)
[2018-06-04] MEDS ORDERED: Gabapentin 100 MG Cap PO SCH (21:00)
[2018-06-04] MEDS: busPIRone 5 MG Tab PO SCH (22:22)
[2018-06-05] MEDS: ceFAZolin 2 GM in Premix Bag 1 BAG IV SCH (00:22)
[2018-06-05] MEDS: Acetaminophen 1,000 MG in Premix Bag 1 BAG IV SCH (01:00)
[2018-06-05] MEDS: Ketorolac 30 MG/ML SDV IVPUSH SCH (01:02)
[2018-06-05] MEDS ORDERED: Morphine 2 MG/ML Syringe IVPUSH PRN (06:00)
[2018-06-05] MEDS: Insulin Aspart 100 Units/ML 3 ML Pen SUBCUT SCH ×2 (07:03→12:48)
--- NOTE | 2018-06-05 07:07 | PCM.SURGPN ---
- General Info Date of Service: 06/05/18 Date of Surgery/Procedure: 06/04/18 POD#: 1 Functional Status: Reports: Pain Controlled, Tolerating Diet, Ambulating - Review of Systems General: Reports: No Symptoms Pulmonary: Reports: No Symptoms Cardiovascular: Reports: No Symptoms Gastrointestinal: Reports: No Symptoms Systems Review Comment:: pt resting comfortably in bed pain under better control with IV dilaudid PRN has been OOB to chair with increased L knee pain no specific concerns today - Patient Data Vitals - Most Recent: Last Vital Signs Temp 97.6 F 06/05/18 03:07 Pulse 87 06/05/18 03:07 Resp 18 06/05/18 03:07 BP 132/71 06/05/18 03:07 Pulse Ox 91 L 06/05/18 03:07 Weight - Most Recent: 101.605 kg I&O - Last 24 Hours: Intake & Output 06/04/18 06/05/18 06/05/18 22:59 06:59 14:59 Intake Total 1092 600 Output Total 500 1700 Balance 592 -1100 Lab Results Last 24 Hrs: Laboratory Results - last 24 hr 06/04/18 06/04/18 06/04/18 Range/Units 07:00 07:10 10:51 Hgb (12.0-16.0) g/dL Hct (36.0-46.0) % POC Glucose 139 H 144 H (60-110) mg/dL Blood Type O POSITIVE Antibody Screen NEGATIVE 06/04/18 06/04/18 06/05/18 Range/Units 15:51 22:17 05:05 Hgb 12.2 (12.0-16.0) g/dL Hct 35.6 L (36.0-46.0) % POC Glucose 139 H 123 H (60-110) mg/dL Blood Type Antibody Screen Med Orders - Current: Current Medications Al Hydroxide/Mg Hydroxide (Mag-Al Plus) 30 ml PO Q4H PRN PRN Reason: Indigestion Aspirin (Ecotrin) 325 mg PO BID IAN Bisacodyl (Dulcolax) 10 mg RECTAL DAILY PRN PRN Reason: Constipation Buspirone HCl (Buspar) 7.5 mg PO BID [facility] Last Admin: 06/04/18 22:22 Dose: 7.5 mg Celecoxib (Celebrex) 200 mg PO BID [facility] Diphenhydramine HCl (Benadryl) 25 - 50 mg PO Q6H PRN PRN Reason: Itching Docusate Sodium (Colace) 100 mg PO BID PRN PRN Reason: Constipation Famotidine (Pepcid) 40 mg PO DAILY [facility] Gabapentin (Neurontin) 200 mg PO BEDTIME [facility] Last Admin: 06/04/18 22:20 Dose: 200 mg Gabapentin (Neurontin) 100 mg PO ACBREAKFAST [facility] Hydrochlorothiazide (Hydrochlorothiazide) 12.5 mg PO DAILY [facility] Hydromorphone HCl (Dilaudid) 0 mg IV Q3H PRN PRN Reason: PAIN Last Admin: 06/04/18 18:30 Dose: 1 mg Lactated Ringer's (Ringers, Lactated) 1,000 mls @ 100 mls/hr IV ASDIRECTED [facility] Last Admin: 06/04/18 19:44 Dose: 100 mls/hr Insulin Aspart (Novolog) 0 unit SUBCUT TIDAC [facility]; Protocol Last Admin: 06/04/18 17:38 Dose: Not Given Lisinopril (Prinivil) 10 mg PO DAILY [facility] Ondansetron HCl (Zofran) 4 mg IVPUSH Q6H PRN PRN Reason: Nausea/Vomiting Oxycodone/Acetaminophen (Percocet 325-5 Mg) 1 - 2 tab PO Q4H PRN PRN Reason: Pain Polyethylene Glycol (Miralax) 17 gm PO DAILY [facility] Scopolamine (Transderm-Scop) 1.5 mg TRDERM ONARRIVE [facility] Last Admin: 06/04/18 06:53 Dose: 1.5 mg Sodium Chloride (Saline Flush) 10 ml FLUSH ASDIRECTED PRN PRN Reason: Keep Vein Open Sodium Chloride (Saline Flush) 2.5 ml FLUSH ASDIRECTED PRN PRN Reason: Keep Vein Open Discontinued Medications Atropine Sulfate (Atropine 0.1 Mg/Ml) 1 mg IVPUSH ASDIRECTED PRN PRN Reason: ACLS Guidelines Atropine Sulfate (Atropine 0.1 Mg/Ml) 0.5 mg IVPUSH ASDIRECTED PRN PRN Reason: Hypo-Perfusion Cefazolin Sodium (Ancef) Confirm Administered Dose 2 gm .ROUTE .STK-MED ONE Stop: 06/04/18 08:17 Dextrose/Water (Dextrose 50% In Water) 50 ml IVPUSH ASDIRECTED PRN PRN Reason: Hypoglycemia Epinephrine HCl (Epinephrine 1:10,000) 1 mg IVPUSH ASDIRECTED PRN PRN Reason: ACLS Guidelines Famotidine (Pepcid) 40 mg IVPUSH ONARRIVE [facility] Last Admin: 06/04/18 06:53 Dose: 40 mg Fentanyl (Sublimaze) Confirm Administered Dose 100 mcg .ROUTE .STK-MED ONE Stop: 06/04/18 07:25 Fentanyl (Sublimaze) 50 - 100 mcg IVPUSH Q5M PRN PRN Reason: Pain Acetaminophen 1,000 mg/ Premix 100 mls @ 400 mls/hr IV ONARRIVE [facility] Last Admin: 06/04/18 06:58 Dose: 400 mls/hr Cefazolin Sodium/Dextrose 2 gm (/ Premix) 50 mls @ 100 mls/hr IV ONCALL [facility] Ropivacaine 49.25 ml/Ketorolac Tromethamine 30 mg/Epinephrine HCl 0.5 mg/ Clonidine HCl 80 mcg/ Sodium Chloride 100 mls @ 50 mls/sec INJECT ASDIRECTED [facility] Tranexamic Acid 2,000 mg/ (Sodium Chloride) 120 mls @ 600 mls/hr IV ASDIRECTED ONE Stop: 06/04/18 08:11 Last Admin: 06/04/18 12:02 Dose: Not Given Ropivacaine 49.25 ml/Ketorolac Tromethamine 30 mg/Epinephrine HCl 0.5 mg/ Sodium Chloride 100 mls @ 3,000 mls/hr INJECT ASDIRECTED [facility] Acetaminophen 1,000 mg/ Premix 100 mls @ 400 mls/hr IV Q6H [facility] Stop: 06/05/18 01:14 Last Admin: 06/05/18 01:00 Dose: 400 mls/hr Cefazolin Sodium/Dextrose 2 gm (/ Premix) 50 mls @ 100 mls/hr IV Q8H [facility] Stop: 06/05/18 00:29 Last Admin: 06/05/18 00:22 Dose: 100 mls/hr Ketorolac Tromethamine (Toradol) 30 mg IVPUSH ONARRIVE [facility] Last Admin: 06/04/18 06:55 Dose: 30 mg Ketorolac Tromethamine (Toradol) 30 mg IVPUSH Q6H [facility] Stop: 06/05/18 05:00 Last Admin: 06/05/18 01:02 Dose: 30 mg Lidocaine (Xylocaine-Mpf 2%) Confirm Administered Dose 5 ml .ROUTE .STK-MED ONE Stop: 06/04/18 07:25 Midazolam HCl (Versed 1 Mg/Ml) Confirm Administered Dose 2 mg .ROUTE .STK-MED ONE Stop: 06/04/18 07:26 Midazolam HCl (Versed 1 Mg/Ml) Confirm Administered Dose 2 mg .ROUTE .STK-MED ONE Stop: 06/04/18 08:42 Morphine Sulfate (Morphine Brick Veneer Maker 30 Mg In 30 Ml) 30 mg IV ASDIRECTED PRN; Protocol PRN Reason: Pain Stop: 06/05/18 06:00 Last Admin: 06/04/18 10:29 Dose: 30 mg Naloxone HCl (Narcan) 0.1 mg IVPUSH ASDIRECTED PRN PRN Reason: Respiratory Depression Ondansetron HCl (Zofran) Confirm Administered Dose 4 mg .ROUTE .STK-MED ONE Stop: 06/04/18 07:26 Oxycodone HCl (Oxycodone) 5 - 10 mg PO Q4H PRN PRN Reason: Pain Stop: 06/05/18 06:00 Last Admin: 06/04/18 22:20 Dose: 10 mg Propofol (Diprivan 20 Ml) Confirm Administered Dose 800 mg .ROUTE .STK-MED ONE Stop: 06/04/18 07:25 Tranexamic Acid (Cyklokapron) Confirm Administered Dose 2,000 mg .ROUTE .STK- MED ONE Stop: 06/04/18 07:32 - Exam Wound/Incisions: Dressing Dry and Intact General: Alert, Oriented Cardiovascular: Regular Rate, Regular Rhythm Physical Findings Comment:: vss, afeb hgb 12.2 uo 3000mL - Problem List Review Problem List Initiated/Reviewed/Updated: Yes - My Orders Last 24 Hours: Active Orders 24 hr Category Date Time Status Blood Glucose Check, Bedside [RC] QIDACANDBED Care 06/04/18 12:05 Active Communication Order [RC] PRN Care 06/04/18 09:44 Active Communication Order [RC] PRN Care 06/04/18 09:44 Active Insert Urinary Catheter [OM.PC] Q24H Care 06/04/18 08:00 Ordered Insert Urinary Catheter [OM.PC] Q24H Care 06/05/18 08:00 Ordered Neurovascular Check [RC] Q2HR Care 06/04/18 09:44 Active Notify Provider Consults [RC] ASDIRECTED Care 06/04/18 09:54 Active Notify Provider Vital Signs [RC] ASDIRECTED Care 06/04/18 10:27 Active RT Incentive Spirometry [RC] Q1HWA Care 06/04/18 09:44 Active Urinary Catheter Removal [RC] ASDIRECTED Care 06/05/18 09:44 Active Wound Care [RC] DAILY Care 06/04/18 09:44 Active Consult to Physician [CONS] Routine Cons 06/04/18 09:44 Active PT Evaluation and Treatment [CONS] Routine Cons 06/04/18 09:44 Active [employer] Diet [DIET] Diet 06/04/18 Lunch Active HEMOGLOBIN/HEMATOCRIT,HH [HEME] DAILY Lab 06/06/18 06:00 Ordered Acetaminophen/oxyCODONE [Percocet 325-5 MG] Med 06/05/18 06:00 Active 1 - 2 tab PO Q4H PRN Alum Hydrox/Mag Hydrox/Simeth [Mag-Al Plus] Med 06/04/18 09:44 Active 30 ml PO Q4H PRN Aspirin [Ecotrin] Med 06/05/18 09:00 Active 325 mg PO BID Bisacodyl [Dulcolax] Med 06/04/18 09:44 Active 10 mg RECTAL DAILY PRN Celecoxib [CeleBREX] Med 06/05/18 09:00 Active 200 mg PO BID Docusate Sodium [Colace] Med 06/04/18 09:44 Active 100 mg PO BID PRN Famotidine [Pepcid] Med 06/05/18 09:00 Active 40 mg PO DAILY Gabapentin [Neurontin] Med 06/05/18 07:30 Active 100 mg PO ACBREAKFAST Gabapentin [Neurontin] Med 06/04/18 21:00 Active 200 mg PO BEDTIME HYDROmorphone [Dilaudid] Med 06/04/18 15:08 Active 0 mg IV Q3H PRN Insulin Aspart [NovoLOG] Med 06/04/18 17:00 Active See Protocol SUBCUT TIDAC Lisinopril [Prinivil] Med 06/05/18 09:00 Active 10 mg PO DAILY Ondansetron [Zofran] Med 06/04/18 09:44 Active 4 mg IVPUSH Q6H PRN Polyethylene Glycol 3350 [MiraLAX] Med 06/05/18 09:00 Active 17 gm PO DAILY Sodium Chloride 0.9% [Saline Flush] Med 06/04/18 09:44 Active 10 ml FLUSH ASDIRECTED PRN Sodium Chloride 0.9% [Saline Flush] Med 06/04/18 09:44 Active 2.5 ml FLUSH ASDIRECTED PRN busPIRone [Buspar] Med 06/04/18 21:00 Active 7.5 mg PO BID diphenhydrAMINE [Benadryl] Med 06/04/18 09:44 Active 25 - 50 mg PO Q6H PRN hydroCHLOROthiazide Med 06/05/18 09:00 Active 12.5 mg PO DAILY Convert IV to Saline Lock [OM.PC] PRN Ot 06/04/18 09:45 Ordered Convert IV to Saline Lock [OM.PC] PRN Ot 06/05/18 09:45 Ordered Ice Therapy [OM.PC] Routine Ot 06/04/18 09:44 Ordered Medication Orders Al Hydroxide/Mg Hydroxide (Mag-Al Plus) 30 ml PO Q4H PRN PRN Reason: Indigestion Aspirin (Ecotrin) 325 mg PO BID IAN Bisacodyl (Dulcolax) 10 mg RECTAL DAILY PRN PRN Reason: Constipation Buspirone HCl (Buspar) 7.5 mg PO BID [facility] Last Admin: 06/04/18 22:22 Dose: 7.5 mg Celecoxib (Celebrex) 200 mg PO BID [facility] Diphenhydramine HCl (Benadryl) 25 - 50 mg PO Q6H PRN PRN Reason: Itching Docusate Sodium (Colace) 100 mg PO BID PRN PRN Reason: Constipation Famotidine (Pepcid) 40 mg PO DAILY [facility] Gabapentin (Neurontin) 200 mg PO BEDTIME [facility] Last Admin: 06/04/18 22:20 Dose: 200 mg Gabapentin (Neurontin) 100 mg PO ACBREAKFAST [facility] Hydrochlorothiazide (Hydrochlorothiazide) 12.5 mg PO DAILY [facility] Hydromorphone HCl (Dilaudid) 0 mg IV Q3H PRN PRN Reason: PAIN Last Admin: 06/04/18 18:30 Dose: 1 mg Admin: 06/04/18 15:16 Dose: 1 mg Lactated Ringer's (Ringers, Lactated) 1,000 mls @ 100 mls/hr IV ASDIRECTED IAN Last Admin: 06/04/18 19:44 Dose: 100 mls/hr Infusion: 06/04/18 16:52 Dose: 100 mls/hr Admin: 06/04/18 06:52 Dose: 100 mls/hr Insulin Aspart (Novolog) 0 unit SUBCUT TIDAC [facility]; Protocol Last Admin: 06/04/18 17:38 Dose: Not Given Lisinopril (Prinivil) 10 mg PO DAILY [facility] Ondansetron HCl (Zofran) 4 mg IVPUSH Q6H PRN PRN Reason: Nausea/Vomiting Oxycodone/Acetaminophen (Percocet 325-5 Mg) 1 - 2 tab PO Q4H PRN PRN Reason: Pain Polyethylene Glycol (Miralax) 17 gm PO DAILY [facility] Scopolamine (Transderm-Scop) 1.5 mg TRDERM ONARRIVE [facility] Last Admin: 06/04/18 06:53 Dose: 1.5 mg Sodium Chloride (Saline Flush) 10 ml FLUSH ASDIRECTED PRN PRN Reason: Keep Vein Open Sodium Chloride (Saline Flush) 2.5 ml FLUSH ASDIRECTED PRN PRN Reason: Keep Vein Open - Assessment Assessment (Free Text/Narrative):: POD#1 L TKA - Plan Plan (Free Text/Narrative):: DC IV fluids - saline lock IV DC hanson DC [employer] ANALYST - morphine IV prn breakthrough pain DC oxycodone - percocet 5/325 prn available ASA 325mg PO BID as DVT prophylaxis dressing change to aquacel this afternoon PT today pt has wheeled walker or script has been written anticipate up to 72 hour stay for IV pain medication and continued physical therapy pt will require FWW for safe mobility/stability until increased strength/gait independence s/p TKA - has been safely mobilizing in room with FWW. d/ch medications written appreciate hospitalist assistance
[2018-06-05] MEDS: Acetaminophen/oxyCODONE 325-5 MG Tab PO PRN ×2 (07:08→11:26)
[2018-06-05] MEDS ORDERED: Gabapentin 100 MG Cap PO SCH (07:30)
[2018-06-05 08:13] LABS: CHLORIDE,CL 100 mmol/L (98-107); SODIUM,NA 138 mmol/L (136-145)
[2018-06-05] MEDS ORDERED: Lisinopril 10 MG Tab PO SCH (09:00)
[2018-06-05] MEDS ORDERED: Polyethylene Glycol 3350 Powder 17 GM Packet PO SCH (09:00)
[2018-06-05] MEDS ORDERED: Aspirin 325 MG Tab.EC PO SCH (09:00)
[2018-06-05] MEDS ORDERED: Hydrochlorothiazide 12.5 MG Cap PO SCH (09:00)
[2018-06-05] MEDS ORDERED: Famotidine 20 MG Tab PO SCH (09:00)
[2018-06-05] MEDS ORDERED: Celecoxib 100 MG Cap PO SCH (09:00)
[2018-06-05] MEDS: busPIRone 5 MG Tab PO SCH (09:09)
--- NOTE | 2018-06-05 11:36 | PCM.CONSN ---
- General Info Date of Service: 06/05/18 Admission Dx/Problem (Free Text): Admission Diagnosis/Problem Admission Diagnosis/Problem Left TKA Subjective Update: Doing well this morning, pain is manageable with medications. No chest pain or SOB. Functional Status: Reports: Pain Controlled, Tolerating Diet, Ambulating - Review of Systems General: Reports: No Symptoms. Denies: Fever, Weakness, Fatigue Pulmonary: Reports: No Symptoms. Denies: Shortness of Breath Cardiovascular: Reports: No Symptoms. Denies: Chest Pain, Dyspnea on Exertion, Edema Gastrointestinal: Reports: No Symptoms. Denies: Abdominal Pain, Nausea, Vomiting Genitourinary: Reports: No Symptoms. Denies: Dysuria, Frequency, Burning Musculoskeletal: Reports: No Symptoms Skin: Reports: No Symptoms Neurological: Reports: No Symptoms Psychiatric: Reports: No Symptoms - Patient Data Vitals - Most Recent: Last Vital Signs Temp 99.3 F 06/05/18 07:00 Pulse 85 06/05/18 07:00 Resp 16 06/05/18 07:00 BP 139/80 06/05/18 09:04 Pulse Ox 93 L 06/05/18 07:00 Weight - Most Recent: 101.605 kg I&O - Last 24 Hours: Intake & Output 06/04/18 06/05/18 06/05/18 22:59 06:59 14:59 Intake Total 1092 600 Output Total 500 1700 Balance 592 -1100 Lab Results Last 24 Hours: Laboratory Results - last 24 hr 06/04/18 06/04/18 06/04/18 Range/Units 07:10 15:51 22:17 Hgb (12.0-16.0) g/dL Hct (36.0-46.0) % Sodium (136-145) mmol/L Potassium (3.5-5.1) mmol/L Chloride (98-107) mmol/L Carbon Dioxide (21.0-32.0) mmol/L BUN (7.0-18.0) mg/dL Creatinine (0.6-1.0) mg/dL Est Cr Clr Drug Dosing mL/min Estimated GFR (MDRD) ml/min Glucose (74-106) mg/dL POC Glucose 139 H 139 H 123 H (60-110) mg/dL Calcium (8.5-10.1) mg/dL 06/05/18 06/05/1819 Range/Units 05:05 05:05 06:56 Hgb 12.2 (12.0-16.0) g/dL Hct 35.6 L (36.0-46.0) % Sodium 138 (136-145) mmol/L Potassium 4.3 (3.5-5.1) mmol/L Chloride 100 (98-107) mmol/L Carbon Dioxide 28.2 (21.0-32.0) mmol/L BUN 12 (7.0-18.0) mg/dL Creatinine 0.7 (0.6-1.0) mg/dL Est Cr Clr Drug Dosing 77.77 mL/min Estimated GFR (MDRD) > 60.0 ml/min Glucose 152 H (74-106) mg/dL POC Glucose 107 (60-110) mg/dL Calcium 8.6 (8.5-10.1) mg/dL Med Orders - Current: Current Medications Al Hydroxide/Mg Hydroxide (Mag-Al Plus) 30 ml PO Q4H PRN PRN Reason: Indigestion Aspirin (Ecotrin) 325 mg PO BID [facility] Last Admin: 06/05/18 09:05 Dose: 325 mg Bisacodyl (Dulcolax) 10 mg RECTAL DAILY PRN PRN Reason: Constipation Buspirone HCl (Buspar) 7.5 mg PO BID [facility] Last Admin: 06/05/18 09:09 Dose: 7.5 mg Celecoxib (Celebrex) 200 mg PO BID [facility] Last Admin: 06/05/18 09:03 Dose: 200 mg Diphenhydramine HCl (Benadryl) 25 - 50 mg PO Q6H PRN PRN Reason: Itching Docusate Sodium (Colace) 100 mg PO BID PRN PRN Reason: Constipation Famotidine (Pepcid) 40 mg PO DAILY [facility] Last Admin: 06/05/18 09:03 Dose: 40 mg Gabapentin (Neurontin) 200 mg PO BEDTIME [facility] Last Admin: 06/04/18 22:20 Dose: 200 mg Gabapentin (Neurontin) 100 mg PO ACBREAKFAST [facility] Last Admin: 06/05/18 07:10 Dose: 100 mg Hydrochlorothiazide (Hydrochlorothiazide) 12.5 mg PO DAILY [facility] Last Admin: 06/05/18 09:03 Dose: 12.5 mg Hydromorphone HCl (Dilaudid) 0 mg IV Q3H PRN PRN Reason: PAIN Last Admin: 06/04/18 18:30 Dose: 1 mg Insulin Aspart (Novolog) 0 unit SUBCUT TIDAC [facility]; Protocol Last Admin: 06/05/18 07:03 Dose: Not Given Lisinopril (Prinivil) 10 mg PO DAILY [facility] Last Admin: 06/05/18 09:04 Dose: 10 mg Ondansetron HCl (Zofran) 4 mg IVPUSH Q6H PRN PRN Reason: Nausea/Vomiting Oxycodone/Acetaminophen (Percocet 325-5 Mg) 1 - 2 tab PO Q4H PRN PRN Reason: Pain Last Admin: 06/05/18 11:26 Dose: 2 tab Polyethylene Glycol (Miralax) 17 gm PO DAILY [facility] Last Admin: 06/05/18 09:10 Dose: 17 gm Scopolamine (Transderm-Scop) 1.5 mg TRDERM ONARRIVE [facility] Last Admin: 06/04/18 06:53 Dose: 1.5 mg Sodium Chloride (Saline Flush) 10 ml FLUSH ASDIRECTED PRN PRN Reason: Keep Vein Open Sodium Chloride (Saline Flush) 2.5 ml FLUSH ASDIRECTED PRN PRN Reason: Keep Vein Open Discontinued Medications Atropine Sulfate (Atropine 0.1 Mg/Ml) 1 mg IVPUSH ASDIRECTED PRN PRN Reason: ACLS Guidelines Atropine Sulfate (Atropine 0.1 Mg/Ml) 0.5 mg IVPUSH ASDIRECTED PRN PRN Reason: Hypo-Perfusion Cefazolin Sodium (Ancef) Confirm Administered Dose 2 gm .ROUTE .STK-MED ONE Stop: 06/04/18 08:17 Dextrose/Water (Dextrose 50% In Water) 50 ml IVPUSH ASDIRECTED PRN PRN Reason: Hypoglycemia Epinephrine HCl (Epinephrine 1:10,000) 1 mg IVPUSH ASDIRECTED PRN PRN Reason: ACLS Guidelines Famotidine (Pepcid) 40 mg IVPUSH ONARRIVE [facility] Last Admin: 06/04/18 06:53 Dose: 40 mg Fentanyl (Sublimaze) Confirm Administered Dose 100 mcg .ROUTE .STK-MED ONE Stop: 06/04/18 07:25 Fentanyl (Sublimaze) 50 - 100 mcg IVPUSH Q5M PRN PRN Reason: Pain Acetaminophen 1,000 mg/ Premix 100 mls @ 400 mls/hr IV ONARRIVE [facility] Last Admin: 06/04/18 06:58 Dose: 400 mls/hr Cefazolin Sodium/Dextrose 2 gm (/ Premix) 50 mls @ 100 mls/hr IV ONCALL [facility] Ropivacaine 49.25 ml/Ketorolac Tromethamine 30 mg/Epinephrine HCl 0.5 mg/ Clonidine HCl 80 mcg/ Sodium Chloride 100 mls @ 50 mls/sec INJECT ASDIRECTED [facility] Lactated Ringer's (Ringers, Lactated) 1,000 mls @ 100 mls/hr IV ASDIRECTED [facility] Last Admin: 06/04/18 19:44 Dose: 100 mls/hr Tranexamic Acid 2,000 mg/ (Sodium Chloride) 120 mls @ 600 mls/hr IV ASDIRECTED ONE Stop: 06/04/18 08:11 Last Admin: 06/04/18 12:02 Dose: Not Given Ropivacaine 49.25 ml/Ketorolac Tromethamine 30 mg/Epinephrine HCl 0.5 mg/ Sodium Chloride 100 mls @ 3,000 mls/hr INJECT ASDIRECTED [facility] Acetaminophen 1,000 mg/ Premix 100 mls @ 400 mls/hr IV Q6H [facility] Stop: 06/05/18 01:14 Last Admin: 06/05/18 01:00 Dose: 400 mls/hr Cefazolin Sodium/Dextrose 2 gm (/ Premix) 50 mls @ 100 mls/hr IV Q8H [facility] Stop: 06/05/18 00:29 Last Admin: 06/05/18 00:22 Dose: 100 mls/hr Ketorolac Tromethamine (Toradol) 30 mg IVPUSH ONARRIVE [facility] Last Admin: 06/04/18 06:55 Dose: 30 mg Ketorolac Tromethamine (Toradol) 30 mg IVPUSH Q6H [facility] Stop: 06/05/18 05:00 Last Admin: 06/05/18 01:02 Dose: 30 mg Lidocaine (Xylocaine-Mpf 2%) Confirm Administered Dose 5 ml .ROUTE .STK-MED ONE Stop: 06/04/18 07:25 Midazolam HCl (Versed 1 Mg/Ml) Confirm Administered Dose 2 mg .ROUTE .STK-MED ONE Stop: 06/04/18 07:26 Midazolam HCl (Versed 1 Mg/Ml) Confirm Administered Dose 2 mg .ROUTE .STK-MED ONE Stop: 06/04/18 08:42 Morphine Sulfate (Morphine Supply Aide 30 Mg In 30 Ml) 30 mg IV ASDIRECTED PRN; Protocol PRN Reason: Pain Stop: 06/05/18 06:00 Last Admin: 06/04/18 10:29 Dose: 30 mg Naloxone HCl (Narcan) 0.1 mg IVPUSH ASDIRECTED PRN PRN Reason: Respiratory Depression Ondansetron HCl (Zofran) Confirm Administered Dose 4 mg .ROUTE .STK-MED ONE Stop: 06/04/18 07:26 Oxycodone HCl (Oxycodone) 5 - 10 mg PO Q4H PRN PRN Reason: Pain Stop: 06/05/18 06:00 Last Admin: 06/04/18 22:20 Dose: 10 mg Propofol (Diprivan 20 Ml) Confirm Administered Dose 800 mg .ROUTE .STK-MED ONE Stop: 06/04/18 07:25 Tranexamic Acid (Cyklokapron) Confirm Administered Dose 2,000 mg .ROUTE .STK- MED ONE Stop: 06/04/18 07:32 - Exam General: Alert, Oriented, Cooperative, No Acute Distress Lungs: Clear to Auscultation, Normal Respiratory Effort Cardiovascular: Regular Rate, Regular Rhythm GI/Abdominal Exam: Normal Bowel Sounds, Soft, Non-Tender Extremities: Normal Inspection, Normal Range of Motion, Non-Tender Wound/Incisions: Dressing Dry and Intact. No: Erythema Neurological: No New Focal Deficit Psy/Mental Status: Alert, Normal Affect, Normal Mood Consult PN Assessment/Plan Procedures: Procedures COMPREHEN METABOLIC PANEL (05/19/17) EMERGENCY DEPT VISIT (09/16/16) GLUCOSE BLOOD TEST (06/28/17) GLYCOSYLATED HEMOGLOBIN TEST (05/19/17) KNEE ARTHROSCOPY/SURGERY (06/28/17) LIPID PANEL (05/19/17) METABOLIC PANEL TOTAL CA (04/12/16) MRI JNT OF LWR EXTRE W/O DYE (04/30/18) ROUTINE VENIPUNCTURE (05/19/17) TISSUE EXAM BY PATHOLOGIST (06/28/17) UR ALBUMIN SEMIQUANTITATIVE (05/19/17) X-RAY EXAM OF KNEE 1 OR 2 (05/05/16) X-RAY EXAM OF KNEE 3 (04/12/16) (1) S/P total knee arthroplasty SNOMED Code(s): 9664142811365, 615618975, 8006317652756 Code(s): Z96.659 - PRESENCE OF UNSPECIFIED ARTIFICIAL KNEE JOINT Current Visit: Yes Qualifiers: Laterality: left Qualified Code(s): Z96.652 - Presence of left artificial knee joint (2) DM type 2 (diabetes mellitus, type 2) SNOMED Code(s): 85345438 Code(s): E11.9 - TYPE 2 DIABETES MELLITUS WITHOUT COMPLICATIONS Current Visit: Yes (3) HTN (hypertension) SNOMED Code(s): 47076077 Code(s): I10 - ESSENTIAL (PRIMARY) HYPERTENSION Current Visit: Yes Problem List Initiated/Reviewed/Updated: Yes Plan: This 53 year old female admitted with L TKA, hospitalist consult requested for medical management. 1. L TKA: Orders per Ortho. 2. DM Type 2: Continue Novolog SSI. Holding Metformin during admission, ok to start on Discharge. 3. HTN: Stable. Continue HCTZ and Lisinopril. VTE prophylaxis: Recommend when Orthopedics deems appropriate, currently on ASA BID
[2018-06-05] MEDS ORDERED: Acetaminophen/HYDROcodone 325-10 MG Tab PO PRN (13:14)
--- NOTE | 2018-06-05 16:27 | PCM.SN ---
- Free Text/Narrative Note: dressing changed to aquacel on noon rounds switched to [place] with improved pain relief she would like to go home this afternoon see d/ch instructions, rx's d/ch summary #[id number]
[2018-06-06 07:08] VITALS: BP 139/80
--- NOTE | 2018-06-06 07:08 | PCM48HPAN ---
Post Anesthesia Note - EVALUATION WITHIN 48HRS OF ANESTHETIC Vital Signs in Normal Range: Yes Patient Participated in Evaluation: Yes Respiratory Function Stable: Yes Airway Patent: Yes Cardiovascular Function Stable: Yes Hydration Status Stable: Yes Pain Control Satisfactory: Yes Nausea and Vomiting Control Satisfactory: Yes Mental Status Recovered: Yes Resp Rate: 16 Blood Pressure: 139/80
--- NOTE | 2018-06-06 11:40 | DISCH ---
DATE OF DISCHARGE: 06/05/2018 PRIMARY CARE PHYSICIAN: Silverio Guzmán MD ADMITTING DIAGNOSIS: Degenerative joint disease, left knee, tricompartmental. OTHER MEDICAL DIAGNOSES: 1. Anxiety/depression. 2. Diabetes mellitus type 2. 3. Hypertension. 4. Morbid obesity. 5. Chronic insomnia. DISCHARGE DIAGNOSES: 1. Degenerative joint disease, left knee, tricompartmental. 2. Anxiety/depression. 3. Diabetes mellitus type 2. 4. Hypertension. 5. Morbid obesity. 6. Chronic insomnia. HISTORY OF PRESENT ILLNESS: Inge is a 53-year-old female, who has had progressive complaints of left knee pain. She has tried and failed conservative treatment. At that time, surgical treatment was recommended. On June 04, 2018, the patient underwent a left total knee arthroplasty using patient-specific instrumentation done by Dr. Sneha Montague. It was done under spinal anesthesia with sedation. Estimated blood loss was 50 mL. Tourniquet time was 43 minutes. There were no complications. Upon completion of the procedure, the patient was transferred to the PACU and subsequently to Med/Surg for postoperative care. HOSPITAL COURSE: Postoperatively, the patient did well. She received 2 doses of antibiotics postoperatively for a total of 24 hours of antibiotic coverage. Her pain was controlled with a combination of oral and IV pain medications. She did notice minimal relief with Percocet 5/325, was transitioned to [place] 10/325 and had increased pain relief. Physical therapy and the hospitalist service followed her through her hospital stay. Her vital signs have been stable. She has been afebrile. Her hemoglobin on the morning of June 05 was 12.2. At this time, her pain is controlled with oral pain medications. She is ambulating well with a wheeled walker. She is tolerating oral intake. She feels comfortable with discharge to home. DISCHARGE MEDICATIONS: 1. Morley 10/325. 2. Celebrex 200 mg. 3. Colace 100 mg. 4. MiraLax. 5. Aspirin 325 mg. For discharge instructions, please refer back to Dr. Montague's postoperative total knee arthroplasty patient instructions. Should she have questions or concerns prior to followup, she has been advised to contact the clinic. DEBORAH KELLY /[phone]
== END 2018-06-05 17:30 | disposition home or self-care (01) | DRG 470 ==
LOC: MW.SDS 06:24 → MW.MS 11:50
PROVIDERS: ADMIT Orthopaedic Surgery; ATTEND Orthopaedic Surgery
PROC: 0SRD0J9 Replacement of Left Knee Joint with Synthetic Substitute, Cemented, Open Approach (ICD-10-PCS; principal; 2018-06-04)
DX: M17.12 Unilateral primary osteoarthritis, left knee (principal); F41.9 Anxiety disorder, unspecified; F32.9 Major depressive disorder, single episode, unspecified; I10 Essential (primary) hypertension; E66.01 Morbid (severe) obesity due to excess calories; F51.04 Psychophysiologic insomnia; L40.9 Psoriasis, unspecified; M25.762 Osteophyte, left knee; M94.262 Chondromalacia, left knee; Z68.39 Body mass index [BMI] 39.0-39.9, adult; Z90.49 Acquired absence of other specified parts of digestive tract; Z90.710 Acquired absence of both cervix and uterus; Z87.891 Personal history of nicotine dependence; Z79.899 Other long term (current) drug therapy; Z79.84 Long term (current) use of oral hypoglycemic drugs; Z91.018 Allergy to other foods; Z87.442 Personal history of urinary calculi
CPT/HCPCS: 36415; 73560-26-LT; 73560-LT; 80048; 82962; 85014; 85018; 86850; 86900; 86901; 97110-GP; 97161-GP; 97530-GP; A9270-GY; C1713; C1776; J0131; J0171; J0690; J1170; J1885; J2001; J2250; J2274; J2405; J2704; J2795; J3010; J3490; J7050; J7120

== ENCOUNTER 2018-09-05 16:26 | Emergency (ER) | payer OTHER ==
--- NOTE | 2018-09-05 16:39 | EDM.PDOC ---
ED HPI GENERAL MEDICAL PROBLEM - General Chief Complaint: Genitourinary Problem Stated Complaint: POSSIBLE KIDNEY STONES Time Seen by Provider: 09/05/18 16:32 - History of Present Illness INITIAL COMMENTS - FREE TEXT/NARRATIVE: HISTORY AND PHYSICAL: History of present illness: Patient is 53-year-old white female past medical history significant for non- insulin-dependent diabetes who's had prior urolithiasis presents with concern of suprapubic discomfort and frequency of urination patient is also discomfort urination but states this is the same presentation when she had prior urolithiasis 5 years prior no fever chills nausea or vomiting Review of systems: As per history of present illness and below otherwise all systems reviewed and negative. Past medical history: As per history of present illness and as reviewed below otherwise noncontributory. Surgical history: As per history of present illness and as reviewed below otherwise noncontributory. Social history: No reported history of drug or alcohol abuse. Family history: As per history of present illness and as reviewed below otherwise noncontributory. Physical exam: HEENT: Atraumatic, normocephalic, pupils reactive, negative for conjunctival pallor or scleral icterus, mucous membranes moist, throat clear, neck supple, nontender, trachea midline. Lungs: Clear to auscultation, breath sounds equal bilaterally, chest nontender. Heart: S1S2, regular, negative for clicks, rubs, or JVD. Abdomen: Soft, nondistended, nontender. Negative for masses or hepatosplenomegaly. Negative for costovertebral tenderness. Pelvis: Stable nontender. Genitourinary: Deferred. Rectal: Deferred. Extremities: Atraumatic, negative for cords or calf pain. Neurovascular unremarkable. Neuro: Awake, alert, oriented. Cranial nerves II through XII unremarkable. Cerebellum unremarkable. Motor and sensory unremarkable throughout. Exam nonfocal. Diagnostics: CBC CMP UA CT abdomen and pelvis Therapeutics: Toradol 60 mg IM Impression: #1 UTI 2 history of urolithiasis Definitive disposition and diagnosis as appropriate pending reevaluation and review of above. - Related Data Allergies Allergy/AdvReac Type Severity Reaction Status Date / Time artificial sweetners Allergy Headache Uncoded 06/04/18 07:29 Home Meds: Home Meds Hydrochlorothiazide 12.5 mg PO DAILY 09/16/16 [History] metFORMIN HCl [Metformin HCl] 500 mg PO BID 09/16/16 [History] Lisinopril 10 mg PO DAILY 06/26/17 [History] Gabapentin [Neurontin] 1 tab PO ACBREAKFAST 05/30/18 [History] Gabapentin [Neurontin] 2 tab PO BEDTIME 05/30/18 [History] busPIRone HCl [Buspirone HCl] 7.5 mg PO BID 05/30/18 [History] Aspirin [Ecotrin] 325 mg PO BID #60 tab.ec 06/05/18 [Rx] Past Medical History Cardiovascular History: Reports: Hypertension Gastrointestinal History: Reports: Other (See Below) Other Gastrointestinal History: occasional heartburn Genitourinary History: Reports: Renal Calculus 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: Musculoskeletal History: Reports: Osteoarthritis Neurological History: Reports: None Psychiatric History: Reports: Anxiety, Depression Endocrine/Metabolic History: Reports: Diabetes, Type II, Obesity/BMI 30+ Hematologic History: Reports: None Immunologic History: Reports: None Oncologic (Cancer) History: Reports: None Dermatologic History: Reports: Psoriasis - Past Surgical History Head Surgeries/Procedures: Reports: None GI Surgical History: Reports: Cholecystectomy, Hernia, Abdominal Female Surgical History: Reports: Hysterectomy, Tubal Ligation Other Musculoskeletal Surgeries/Procedures:: hx thor knee arthroscopies Social & Family History - Family History Family Medical History: Noncontributory - Caffeine Use Caffeine Use: Reports: Coffee, Soda, Tea Other Caffeine Use: 1-3 cups per day ED ROS GENERAL - Review of Systems Review Of Systems: ROS reveals no pertinent complaints other than HPI. ED EXAM, GENERAL - Physical Exam Exam: See Below (See dictation) Course - Vital Signs Last Recorded V/S: Last Vital Signs Temp 36.4 C 09/05/18 16:39 Pulse 120 H 09/05/18 17:58 Resp 16 09/05/18 17:58 BP 153/99 H 09/05/18 17:58 Pulse Ox 98 09/05/18 17:58 - Orders/Labs/Meds Labs: Laboratory Tests 09/05/18 09/05/18 09/05/18 Range/Units 16:46 17:25 17:25 WBC 8.25 (4.0-11.0) K/uL RBC 5.53 (4.30-5.90) M/uL Hgb 16.3 H (12.0-16.0) g/dL Hct 46.6 H (36.0-46.0) % MCV 84.3 (80.0-98.0) fL MCH 29.5 (27.0-32.0) pg MCHC 35.0 (31.0-37.0) g/dL RDW Std Deviation 39.5 (28.0-62.0) fl RDW Coeff of Thor 13 (11.0-15.0) % Plt Count 258 (150-400) K/uL MPV 9.70 (7.40-12.00) fL Neut % (Auto) 77.4 (48.0-80.0) % Lymph % (Auto) 15.5 L (16.0-40.0) % [place]mullen % (Auto) 6.2 (0.0-15.0) % Eos % (Auto) 0.8 (0.0-7.0) % Baso % (Auto) 0.1 (0.0-1.5) % Neut # (Auto) 6.4 H (1.4-5.7) K/uL Lymph # (Auto) 1.3 (0.6-2.4) K/uL Mcmullen # (Auto) 0.5 (0.0-0.8) K/uL Eos # (Auto) 0.1 (0.0-0.7) K/uL Baso # (Auto) 0.0 (0.0-0.1) K/uL Nucleated RBC % 0.0 /100WBC Nucleated RBCs # 0 K/uL Sodium 136 (136-145) mmol/L Potassium 4.2 (3.5-5.1) mmol/L Chloride 100 (98-107) mmol/L Carbon Dioxide 23.7 (21.0-32.0) mmol/L BUN 12 (7.0-18.0) mg/dL Creatinine 0.7 (0.6-1.0) mg/dL Est Cr Clr Drug Dosing 77.77 mL/min Estimated GFR (MDRD) > 60.0 ml/min Glucose 139 H (74-106) mg/dL Calcium 9.2 (8.5-10.1) mg/dL Total Bilirubin 1.0 (0.2-1.0) mg/dL AST 17 (15-37) IU/L ALT 22 (14-63) IU/L Alkaline Phosphatase 80 (46-116) U/L Total Protein 7.8 (6.4-8.2) g/dL Albumin 3.8 (3.4-5.0) g/dL Globulin 4.0 (2.6-4.0) g/dL Albumin/Globulin Ratio 0.9 (0.9-1.6) Urine Color YELLOW Urine Appearance CLEAR Urine pH 5.0 (5.0-8.0) Ur Specific [place] 1.010 (1.001-1.035) Urine Protein NEGATIVE (NEGATIVE) mg/dL Urine Glucose (UA) NEGATIVE (NEGATIVE) mg/dL Urine Ketones NEGATIVE (NEGATIVE) mg/dL Urine Occult Blood TRACE-INTACT H (NEGATIVE) Urine Nitrite NEGATIVE (NEGATIVE) Urine Bilirubin NEGATIVE (NEGATIVE) Urine Urobilinogen 0.2 (<2.0) EU/dL Ur Leukocyte Esterase NEGATIVE (NEGATIVE) Urine RBC 0-1 (0-2/HPF) Urine WBC NONE SEEN (0-5/HPF) Ur Epithelial Cells OCCASIONAL (NONE-FEW) Urine Bacteria RARE (NEGATIVE) Departure - Departure Time of Disposition: 18:30 Disposition: Home, Self-Care 01 Condition: Good Clinical Impression: Diverticulitis - Discharge Information Referrals: Silverio Guzmán MD [Primary Care Provider] - Forms: ED Department Discharge Additional Instructions: The following information is given to patients seen in the emergency department who are being discharged to home. This information is to outline your options for follow-up care. We provide all patients seen in our emergency department with a follow-up referral. The need for follow-up, as well as the timing and circumstances, are variable depending upon the specifics of your emergency department visit. If you don't have a primary care physician on staff, we will provide you with a referral. We always advise you to contact your personal physician following an emergency department visit to inform them of the circumstance of the visit and for follow-up with them and/or the need for any referrals to a consulting specialist. The emergency department will also refer you to a specialist when appropriate. This referral assures that you have the opportunity for followup care with a specialist. All of these measure are taken in an effort to provide you with optimal care, which includes your followup. Under all circumstances we always encourage you to contact your private physician who remains a resource for coordinating your care. When calling for followup care, please make the office aware that this follow-up is from your recent emergency room visit. If for any reason you are refused follow-up, please contact the [facility] emergency department at and asked to speak to the emergency department charge nurse. [facility] - General Surgery Professional [address], [address] [place] [address] Cipro Flagyl as prescribed push fluids follow private medical doctor in general surgery is needed as discussed return as needed as discussed
[2018-09-05 17:53] LABS: CHLORIDE,CL 100 mmol/L (98-107); SODIUM,NA 136 mmol/L (136-145)
[2018-09-05 17:59] VITALS: BP 153/99
--- NOTE | 2018-09-05 18:02 | CT ---
HISTORY: Abdominal pain with urination. TECHNIQUE: CT abdomen and pelvis without contrast. COMPARISON: CT abdomen and pelvis 04/30/2013. FINDINGS: Urinary system: No urinary tract calculi. No hydronephrosis. No shruti nephric stranding. Abdomen: Cholecystectomy. Unenhanced liver, pancreas, spleen, and adrenal glands are unremarkable. Colonic diverticulosis. Inflammatory fat stranding around the proximal-mid sigmoid colon greatest around a diverticulum. No extraluminal gas or fluid collection. No dilated bowel. Appendix is normal. No lymphadenopathy. Mild atherosclerotic calcification. Abdominal aorta is not dilated. Pelvis: No lymphadenopathy. Musculoskeletal: Degenerative changes of the spine. Lower chest: Unremarkable. IMPRESSION: Acute diverticulitis of the sigmoid colon. No evidence of perforation. Please note that all CT scans at this facility use dose modulation, iterative reconstruction, and/or weight-based dosing when appropriate to reduce radiation dose to as low as reasonably achievable. Dictated by Tim Murillo MD @ Sep 05 2018 5:53PM Signed by Dr. Tim Murillo @ Sep 05 2018 6:00PM
== END 2018-09-05 18:50 | disposition home or self-care (01) ==
LOC: MW.ED 16:26
DX: N39.0 Urinary tract infection, site not specified (principal); Z79.899 Other long term (current) drug therapy; Z79.84 Long term (current) use of oral hypoglycemic drugs; Z87.442 Personal history of urinary calculi
CPT/HCPCS: 36415; 74176; 74176-26; 80053; 81001; 85025; 99284-25

== ENCOUNTER 2019-12-17 14:53 | Inpatient (IN) | payer OTHER ==
[2019-12-17] MEDS ORDERED: Morphine 4 MG/ML Syringe IVPUSH ONE (14:59)
[2019-12-17] MEDS ORDERED: Ondansetron 4 MG/2 ML SDV IVPUSH ONE (14:59)
[2019-12-17] MEDS ORDERED: Sodium Chloride 0.9% 10 ML Syringe FLUSH PRN (14:59)
[2019-12-17] MEDS ORDERED: Sodium Chloride 0.9% 2.5 ML Syringe FLUSH PRN (14:59)
--- NOTE | 2019-12-17 15:02 | EDM.PDOC ---
ED HPI GENERAL MEDICAL PROBLEM - General Chief Complaint: Lower Extremity Injury/Pain Stated Complaint: LEG PAIN Time Seen by Provider: 12/17/19 14:55 - History of Present Illness INITIAL COMMENTS - FREE TEXT/NARRATIVE: History of present illness: [] Patient presents with left hip pain after slipping in the mud and falling at the dog park onto her left hip and buttocks no other injuries no other concerns she is complaining of left hip pain no loss of consciousness she is type II diabetic no other medical problems movement makes it worse being still makes it better. Review of systems: As per history of present illness and below otherwise all systems reviewed and negative. Past medical history: As per history of present illness and as reviewed below otherwise noncontributory. Surgical history: As per history of present illness and as reviewed below otherwise noncontributory. Social history: No reported history of drug or alcohol abuse. Family history: As per history of present illness and as reviewed below otherwise noncontributory. Physical exam: HEENT: Atraumatic, normocephalic, pupils reactive, negative for conjunctival pallor or scleral icterus, mucous membranes moist, throat clear, neck supple, no ntender, trachea midline. Lungs: Clear to auscultation, breath sounds equal bilaterally, chest nontender. Heart: S1S2, regular, negative for clicks, rubs, or JVD. Abdomen: Soft, nondistended, nontender. Negative for masses or hepatosplenomegaly. Negative for costovertebral tenderness. Pelvis: Stable left-sided tenderness Genitourinary: Deferred. Rectal: Deferred. Extremities: Atraumatic, negative for cords or calf pain. Neurovascular unremarkable. The left leg is shortened and externally rotated there is pain with movement good distal pulse motor and sensation are present Neuro: Awake, alert, oriented. Cranial nerves II through XII unremarkable. Cerebellum unremarkable. Motor and sensory unremarkable throughout. Exam nonfocal. Diagnostics: [] Therapeutics: [] Impression: Hip fracture [] Plan: X-rays labs admit Ortho [] Definitive disposition and diagnosis as appropriate pending reevaluation and review of above. Left Hip Pain Score (Numeric/FACES): 5 - Related Data Allergies Allergy/AdvReac Type Severity Reaction Status Date / Time artificial sweetners Allergy Headache Uncoded 06/04/18 07:29 Home Meds: Home Meds Hydrochlorothiazide 12.5 mg PO DAILY 09/16/16 [History] metFORMIN HCl [Metformin HCl] 500 mg PO BID 09/16/16 [History] Lisinopril 10 mg PO DAILY 06/26/17 [History] Gabapentin [Neurontin] 1 tab PO ACBREAKFAST 05/30/18 [History] Gabapentin [Neurontin] 2 tab PO BEDTIME 05/30/18 [History] busPIRone HCl [Buspirone HCl] 7.5 mg PO BID 05/30/18 [History] Past Medical History Cardiovascular History: Reports: Hypertension Gastrointestinal History: Reports: Other (See Below) Other Gastrointestinal History: occasional heartburn Genitourinary History: Reports: Renal Calculus 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: Musculoskeletal History: Reports: Osteoarthritis Neurological History: Reports: None Psychiatric History: Reports: Anxiety, Depression Endocrine/Metabolic History: Reports: Diabetes, Type II, Obesity/BMI 30+ Hematologic History: Reports: None Immunologic History: Reports: None Oncologic (Cancer) History: Reports: None Dermatologic History: Reports: Psoriasis - Infectious Disease History Infectious Disease History: Reports: Chicken Pox - Past Surgical History Head Surgeries/Procedures: Reports: None GI Surgical History: Reports: Cholecystectomy, Hernia, Abdominal Female Surgical History: Reports: Hysterectomy, Tubal Ligation Other Musculoskeletal Surgeries/Procedures:: hx thor knee arthroscopies Social & Family History - Family History Family Medical History: Noncontributory - Caffeine Use Caffeine Use: Reports: Coffee, Soda, Tea Other Caffeine Use: 1-3 cups per day Review of Systems - Review of Systems Review Of Systems: See Below ED EXAM, GENERAL - Physical Exam Exam: See Below Course - Vital Signs Text/Narrative:: 2 view left hip and pelvis demonstrates a left intertrochanteric hip fracture. Read interpreted by me Discussed case with Dr. Ceron at 4:00 and he will consult on the patient. I discussed the case with the hospitalist's resident at [facility] and they will admit the patient to [facility]. Last Recorded V/S: Last Vital Signs Temp 36.3 C 12/17/19 14:54 Pulse 71 12/17/19 14:54 Resp 18 12/17/19 14:54 BP 134/70 12/17/19 14:54 Pulse Ox 98 12/17/19 14:54 - Orders/Labs/Meds Orders: Active Orders 24 hr Category Date Time Status Patient Status [ADT] Routine ADT 12/17/19 15:51 Active CORONAVIRUS COVID-19 JOHANNY [MOLEC] Stat Lab 12/17/19 16:05 Received Sodium Chloride 0.9% [Normal Saline] 1,000 ml Med 12/17/19 15:15 Active IV ASDIRECTED Sodium Chloride 0.9% [Saline Flush] Med 12/17/19 14:59 Active 10 ml FLUSH ASDIRECTED PRN Sodium Chloride 0.9% [Saline Flush] Med 12/17/19 14:59 Active 2.5 ml FLUSH ASDIRECTED PRN Saline Lock Insert [OM.PC] Stat Oth 12/17/19 14:59 Ordered Medication Orders Sodium Chloride (Normal Saline) 1,000 mls @ 125 mls/hr IV ASDIRECTED IAN Last Admin: 12/17/19 15:09 Dose: 125 mls/hr Documented by: [email or web address] Sodium Chloride (Saline Flush) 10 ml FLUSH ASDIRECTED PRN PRN Reason: Keep Vein Open Last Admin: 12/17/19 15:09 Dose: 10 ml Documented by: NAYA Sodium Chloride (Saline Flush) 2.5 ml FLUSH ASDIRECTED PRN PRN Reason: Keep Vein Open Last Admin: 12/17/19 15:09 Dose: 2.5 ml Documented by: NAYA Labs: Laboratory Tests 12/17/19 12/17/19 12/17/19 Range/Units 14:50 14:50 14:50 WBC 10.06 (4.0-11.0) K/uL RBC 5.15 (4.30-5.90) M/uL Hgb 15.1 (12.0-16.0) g/dL Hct 44.0 (36.0-46.0) % MCV 85.4 (80.0-98.0) fL MCH 29.3 (27.0-32.0) pg MCHC 34.3 (31.0-37.0) g/dL RDW Std Deviation 39.2 (28.0-62.0) fl RDW Coeff of Thor 13 (11.0-15.0) % Plt Count 277 (150-400) K/uL MPV 9.60 (7.40-12.00) fL Neut % (Auto) 55.1 (48.0-80.0) % Lymph % (Auto) 40.6 H (16.0-40.0) % Reeves % (Auto) 3.4 (0.0-15.0) % Eos % (Auto) 0.7 (0.0-7.0) % Baso % (Auto) 0.2 (0.0-1.5) % Neut # (Auto) 5.6 (1.4-5.7) K/uL Lymph # (Auto) 4.1 H (0.6-2.4) K/uL Reeves # (Auto) 0.3 (0.0-0.8) K/uL Eos # (Auto) 0.1 (0.0-0.7) K/uL Baso # (Auto) 0.0 (0.0-0.1) K/uL Nucleated RBC % 0.0 /100WBC Nucleated RBCs # 0 K/uL INR 1.08 APTT 21.7 (18.6-31.3) SEC Sodium 141 (136-145) mmol/L Potassium 3.5 (3.5-5.1) mmol/L Chloride 101 (98-107) mmol/L Carbon Dioxide 26.1 (21.0-32.0) mmol/L BUN 17 (7.0-18.0) mg/dL Creatinine 0.8 (0.6-1.0) mg/dL Est Cr Clr Drug Dosing 76.13 mL/min Estimated GFR (MDRD) > 60.0 ml/min Glucose 163 H (74-106) mg/dL Calcium 9.2 (8.5-10.1) mg/dL Total Bilirubin 0.7 (0.2-1.0) mg/dL AST 34 (15-37) IU/L ALT 48 (14-63) IU/L Alkaline Phosphatase 83 (46-116) U/L Total Protein 7.3 (6.4-8.2) g/dL Albumin 4.4 (3.4-5.0) g/dL Globulin 2.9 (2.6-4.0) g/dL Albumin/Globulin Ratio 1.5 (0.9-1.6) Meds: Medications Generic Name Dose Route Start Last Admin Trade Name Freq PRN Reason Stop Dose Admin Sodium Chloride 1,000 mls @ 125 mls/hr 12/17/19 15:15 12/17/19 15:09 Normal Saline IV 125 mls/hr ASDIRECTED IAN Administration Sodium Chloride 10 ml 12/17/19 14:59 12/17/19 15:09 Saline Flush FLUSH 10 ml ASDIRECTED PRN Administration Keep Vein Open Sodium Chloride 2.5 ml 12/17/19 14:59 12/17/19 15:09 Saline Flush FLUSH 2.5 ml ASDIRECTED PRN Administration Keep Vein Open Discontinued Medications Generic Name Dose Route Start Last Admin Trade Name Freq PRN Reason Stop Dose Admin Fentanyl 100 mcg 12/17/19 16:56 Fentanyl IVPUSH 12/17/19 16:57 ONETIME ONE Morphine Sulfate 4 mg 12/17/19 14:59 12/17/19 15:12 Morphine IVPUSH 12/17/19 15:00 4 mg ONETIME ONE Administration Ondansetron HCl 4 mg 12/17/19 14:59 12/17/19 15:12 Zofran IVPUSH 12/17/19 15:00 4 mg ONETIME ONE Administration Departure - Departure Time of Disposition: 15:00 Disposition: Refer to Observation Condition: Good Clinical Impression: Intertrochanteric fracture, hip - Discharge Information *PRESCRIPTION DRUG MONITORING PROGRAM REVIEWED*: Not Applicable *COPY OF PRESCRIPTION DRUG MONITORING REPORT IN PATIENT LEXIS: Not Applicable Referrals: Silverio Guzmán MD [Primary Care Provider] - Forms: ED Department Discharge Sepsis Event Note (ED) - Focused Exam Vital Signs: Vital Signs Temp Pulse Resp BP Pulse Ox 12/17/19 14:54 36.3 C 71 18 134/70 98 - My Orders Last 24 Hours: My Active Orders 12/17/19 14:59 Sodium Chloride 0.9% [Saline Flush] 10 ml FLUSH ASDIRECTED PRN Sodium Chloride 0.9% [Saline Flush] 2.5 ml FLUSH ASDIRECTED PRN Saline Lock Insert [OM.PC] Stat 12/17/19 15:15 Sodium Chloride 0.9% [Normal Saline] 1,000 ml IV ASDIRECTED 12/17/19 15:51 Patient Status [ADT] Routine 12/17/19 16:05 CORONAVIRUS COVID-19 JOHANNY [MOLEC] Stat - Assessment/Plan Last 24 Hours: My Active Orders 12/17/19 14:59 Sodium Chloride 0.9% [Saline Flush] 10 ml FLUSH ASDIRECTED PRN Sodium Chloride 0.9% [Saline Flush] 2.5 ml FLUSH ASDIRECTED PRN Saline Lock Insert [OM.PC] Stat 12/17/19 15:15 Sodium Chloride 0.9% [Normal Saline] 1,000 ml IV ASDIRECTED 12/17/19 15:51 Patient Status [ADT] Routine 12/17/19 16:05 CORONAVIRUS COVID-19 JOHANNY [MOLEC] Stat
[2019-12-17] MEDS ORDERED: Sodium Chloride 0.9% 1,000 ML IV SCH (15:15)
[2019-12-17 15:31] LABS: BLOOD UREA NITROGEN,BUN 17 mg/dL (7.0-18.0); CARBON DIOXIDE,CO2 26.1 mmol/L (21.0-32.0); CHLORIDE,CL 101 mmol/L (98-107); GLUCOSE RANDOM 163 mg/dL (74-106); POTASSIUM,K 3.5 mmol/L (3.5-5.1); SODIUM,NA 141 mmol/L (136-145)
--- NOTE | 2019-12-17 15:39 | CR ---
Chest: Portable view of the chest was obtained. Comparison: No prior chest imaging. Heart size and mediastinum are normal. Lungs are clear with no acute parenchymal change. Bony structures are grossly intact. Impression: 1. Nothing acute is seen on portable chest x-ray. Diagnostic code #1 This report was dictated in MDT
--- NOTE | 2019-12-17 15:39 | CR ---
Left hip: And pelvis: AP view of the pelvis was obtained as well as coned-down view of the left hip. Intertrochanteric fracture is identified. Superior joint space narrowing is noted within both hips. Osteopenia is seen. Impression: 1. Intertrochanteric fracture. 2. Osteopenia and mild degenerative change. Diagnostic code #5 This report was dictated in MDT
[2019-12-17] MEDS ORDERED: fentaNYL 50 MCG/ML SDV IVPUSH ONE (16:56)
[2019-12-17] MEDS ORDERED: Morphine 2 MG/ML SYRINGE IVPUSH PRN (17:45)
--- NOTE | 2019-12-17 18:31 | PCM.CONS ---
H&P History of Present Illness - General Date of Service: 12/17/19 Admit Problem/Dx: Admission Diagnosis/Problem Admission Diagnosis/Problem Hip fracture requiring operative repair Source of Information: Patient History Limitations: Reports: No Limitations - History of Present Illness Initial Comments - Free Text/Narative: 54 year old female with left intertrochanteric hip fracture. Patient reports she was walking her dog when she slipped on mud and fell. She landed on her left hip. She was unable to weight bear. She was seen in ER and x-rays revealed hip fracture. No other significant injuries. No LOC, SOB, CP. No foot numbness. Lives independently. 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 No personal or family history of VTE events. Left Hip Pain Score (Numeric/FACES): 5 - Related Data Allergies/Adverse Reactions: Allergies Allergy/AdvReac Type Severity Reaction Status Date / Time artificial sweetners Allergy Headache Uncoded 06/04/18 07:29 Home Medications: Home Meds Hydrochlorothiazide 12.5 mg PO DAILY 09/16/16 [History] metFORMIN HCl [Metformin HCl] 500 mg PO BID 09/16/16 [History] Lisinopril 10 mg PO DAILY 06/26/17 [History] Gabapentin [Neurontin] 1 tab PO ACBREAKFAST 05/30/18 [History] Gabapentin [Neurontin] 2 tab PO BEDTIME 05/30/18 [History] busPIRone HCl [Buspirone HCl] 7.5 mg PO BID 05/30/18 [History] Past Medical History Cardiovascular History: Reports: Hypertension Gastrointestinal History: Reports: Other (See Below) Other Gastrointestinal History: occasional heartburn Genitourinary History: Reports: Renal 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: Musculoskeletal History: Reports: Osteoarthritis Neurological History: Reports: None Psychiatric History: Reports: Anxiety, Depression Endocrine/Metabolic History: Reports: Diabetes, Type II, Obesity/BMI 30+ Hematologic History: Reports: None Immunologic History: Reports: None Oncologic (Cancer) History: Reports: None Dermatologic History: Reports: Psoriasis - Infectious Disease History Infectious Disease History: Reports: Chicken Pox - Past Surgical History Head Surgeries/Procedures: Reports: None GI Surgical History: Reports: Cholecystectomy, Hernia, Abdominal Female Surgical History: Reports: Hysterectomy, Tubal Ligation Other Musculoskeletal Surgeries/Procedures:: hx thor knee arthroscopies Social & Family History - Family History Family Medical History: Noncontributory - Tobacco Use Smoking Status *Q: Unknown Ever Smoked - Caffeine Use Caffeine Use: Reports: Coffee, Soda, Tea Other Caffeine Use: 1-3 cups per day - Recreational Drug Use Recreational Drug Use: No H&P Review of Systems - Review of Systems: Review Of Systems: See Below Musculoskeletal: Reports: Other (left hip pain) Exam - Exam Exam: See Below - Vital Signs Vital Signs: Last Vital Signs Temp 97.3 F 12/17/19 14:54 Pulse 96 12/17/19 17:50 Resp 12 12/17/19 17:50 BP 142/81 H 12/17/19 17:50 Pulse Ox 96 12/17/19 17:50 Weight: 226 lb - Exam Physical Exam Comments:: Skin intact Hip ROM, stability, strength testing, and palpation deferred due to hip fracture Dorsalis pedis pulse palpable Normal sensation to light tough DP, SP, PT distributions Moves toes - Patient Data Lab Results Last 24 hrs: Laboratory Results - last 24 hr 12/17/19 12/17/19 12/17/19 Range/Units 14:50 14:50 14:50 WBC 10.06 (4.0-11.0) K/uL RBC 5.15 (4.30-5.90) M/uL Hgb 15.1 (12.0-16.0) g/dL Hct 44.0 (36.0-46.0) % MCV 85.4 (80.0-98.0) fL MCH 29.3 (27.0-32.0) pg MCHC 34.3 (31.0-37.0) g/dL RDW Std Deviation 39.2 (28.0-62.0) fl RDW Coeff of Thor 13 (11.0-15.0) % Plt Count 277 (150-400) K/uL MPV 9.60 (7.40-12.00) fL Neut % (Auto) 55.1 (48.0-80.0) % Lymph % (Auto) 40.6 H (16.0-40.0) % Nash % (Auto) 3.4 (0.0-15.0) % Eos % (Auto) 0.7 (0.0-7.0) % Baso % (Auto) 0.2 (0.0-1.5) % Neut # (Auto) 5.6 (1.4-5.7) K/uL Lymph # (Auto) 4.1 H (0.6-2.4) K/uL Nash # (Auto) 0.3 (0.0-0.8) K/uL Eos # (Auto) 0.1 (0.0-0.7) K/uL Baso # (Auto) 0.0 (0.0-0.1) K/uL Nucleated RBC % 0.0 /100WBC Nucleated RBCs # 0 K/uL INR 1.08 APTT 21.7 (18.6-31.3) SEC Sodium 141 (136-145) mmol/L Potassium 3.5 (3.5-5.1) mmol/L Chloride 101 (98-107) mmol/L Carbon Dioxide 26.1 (21.0-32.0) mmol/L BUN 17 (7.0-18.0) mg/dL Creatinine 0.8 (0.6-1.0) mg/dL Est Cr Clr Drug Dosing 76.13 mL/min Estimated GFR (MDRD) > 60.0 ml/min Glucose 163 H (74-106) mg/dL Calcium 9.2 (8.5-10.1) mg/dL Total Bilirubin 0.7 (0.2-1.0) mg/dL AST 34 (15-37) IU/L ALT 48 (14-63) IU/L Alkaline Phosphatase 83 (46-116) U/L Total Protein 7.3 (6.4-8.2) g/dL Albumin 4.4 (3.4-5.0) g/dL Globulin 2.9 (2.6-4.0) g/dL Albumin/Globulin Ratio 1.5 (0.9-1.6) SARS Virus RNA (PCR) (NEGATIVE) 12/17/19 Range/Units 16:05 WBC (4.0-11.0) K/uL RBC (4.30-5.90) M/uL Hgb (12.0-16.0) g/dL Hct (36.0-46.0) % MCV (80.0-98.0) fL MCH (27.0-32.0) pg MCHC (31.0-37.0) g/dL RDW Std Deviation (28.0-62.0) fl RDW Coeff of Thor (11.0-15.0) % Plt Count (150-400) K/uL MPV (7.40-12.00) fL Neut % (Auto) (48.0-80.0) % Lymph % (Auto) (16.0-40.0) % Nash % (Auto) (0.0-15.0) % Eos % (Auto) (0.0-7.0) % Baso % (Auto) (0.0-1.5) % Neut # (Auto) (1.4-5.7) K/uL Lymph # (Auto) (0.6-2.4) K/uL Nash # (Auto) (0.0-0.8) K/uL Eos # (Auto) (0.0-0.7) K/uL Baso # (Auto) (0.0-0.1) K/uL Nucleated RBC % /100WBC Nucleated RBCs # K/uL INR APTT (18.6-31.3) SEC Sodium (136-145) mmol/L Potassium (3.5-5.1) mmol/L Chloride (98-107) mmol/L Carbon Dioxide (21.0-32.0) mmol/L BUN (7.0-18.0) mg/dL Creatinine (0.6-1.0) mg/dL Est Cr Clr Drug Dosing mL/min Estimated GFR (MDRD) ml/min Glucose (74-106) mg/dL Calcium (8.5-10.1) mg/dL Total Bilirubin (0.2-1.0) mg/dL AST (15-37) IU/L ALT (14-63) IU/L Alkaline Phosphatase (46-116) U/L Total Protein (6.4-8.2) g/dL Albumin (3.4-5.0) g/dL Globulin (2.6-4.0) g/dL Albumin/Globulin Ratio (0.9-1.6) SARS Virus RNA (PCR) NEGATIVE (NEGATIVE) Result Diagrams: 12/17/19 14:50 12/17/19 14:50 Sepsis Event Note - Evaluation Sepsis Screening Result: No Definite Risk - Focused Exam Vital Signs: Vital Signs Temp Pulse Resp BP Pulse Ox 12/17/19 17:50 96 12 142/81 H 96 12/17/19 17:20 90 14 135/80 96 12/17/19 14:54 97.3 F 71 18 134/70 98 Consult PN Assessment/Plan Procedures: Procedures BODY FLUID CELL COUNT (07/25/19) COMPLETE CBC W/AUTO DIFF WBC (09/05/18) COMPREHEN METABOLIC PANEL (09/05/18) CT ABD & PELVIS W/O CONTRAST (09/05/18) CULTR BACTERIA EXCEPT BLOOD (07/25/19) CULTURE OTHR SPECIMN AEROBIC (07/25/19) EMERGENCY DEPT VISIT (09/05/18) EMERGENCY DEPT VISIT (09/16/16) EXAM SYNOVIAL FLUID CRYSTALS (07/26/19) GLUCOSE BLOOD TEST (06/28/17) GLYCOSYLATED HEMOGLOBIN TEST (05/19/17) KNEE ARTHROSCOPY/SURGERY (06/28/17) LIPID PANEL (05/19/17) METABOLIC PANEL TOTAL CA (04/12/16) MRI JNT OF LWR EXTRE W/O DYE (04/30/18) PT EVAL LOW COMPLEX 20 MIN (06/07/18) ROUTINE VENIPUNCTURE (09/05/18) SMEAR GRAM STAIN (07/25/19) THERAPEUTIC EXERCISES (08/08/18) TISSUE EXAM BY PATHOLOGIST (06/28/17) UR ALBUMIN SEMIQUANTITATIVE (05/19/17) URINALYSIS AUTO W/SCOPE (09/05/18) VASOPNEUMATIC DEVICE THERAPY (07/04/18) X-RAY EXAM OF KNEE 1 OR 2 (05/05/16) X-RAY EXAM OF KNEE 3 (06/15/18) Problem List Initiated/Reviewed/Updated: Yes Plan: Left unstable intertrochanteric hip fracture AAOS clinical practice guidelines recommend intramedullary nail treatment Risks and benefits of surgery discussed with patient Consent completed NPO after midnight Plan IM nail tomorrow early afternoon Recommend ASA EC 325 mg daily for 90 days for VTE prophylaxis after surgery Surgery request form completed
[2019-12-17] MEDS: busPIRone 5 MG Tab PO SCH ×2 (19:01→21:30)
[2019-12-17] MEDS: HYDROmorphone 1 MG/ML Syringe IVPUSH PRN ×2 (19:01→21:25)
[2019-12-17] MEDS ORDERED: Acetaminophen 325 MG Tab PO PRN (19:40)
--- NOTE | 2019-12-17 20:05 | PCM.HP.2 ---
<Babak Dunlap - Last Filed: 12/17/19 20:14> H&P History of Present Illness - General Date of Service: 12/17/19 Admit Problem/Dx: Admission Diagnosis/Problem Admission Diagnosis/Problem Hip fracture requiring operative repair History Limitations: Reports: No Limitations - History of Present Illness Initial Comments - Free Text/Narative: 54 year old female admitted to the medical floor for medical management of Diabetes prior to a surgical repair of the left hip due to a intertrochanteric hip fracture. Patient states that she was walking her dog this afternoon down a muddy hill at which time she slipped and fell on her left side, injuring her hip. She was unable to get up and called he for assistance as she was unable to bear weight. Patient denies dizziness or weakness prior to falling. Patients denies injuring any other part of her body. Patient was transported to the ED at which time an X-Ray of the hip was taken which revealed an left intertrochanteric hip fracture. Patient denies SOB, chest pain, nausea, weakness or numbness in any extremity. Left Hip Pain Score (Numeric/FACES): 5 - Related Data Allergies/Adverse Reactions: Allergies Allergy/AdvReac Type Severity Reaction Status Date / Time artificial sweetners Allergy Headache Uncoded 12/18/19 00:39 Home Medications: Home Meds Hydrochlorothiazide 12.5 mg PO DAILY 09/16/16 [History] metFORMIN HCl [Metformin HCl] 500 mg PO BID 09/16/16 [History] Lisinopril 10 mg PO DAILY 06/26/17 [History] Gabapentin [Neurontin] 1 tab PO ACBREAKFAST 05/30/18 [History] Gabapentin [Neurontin] 2 tab PO BEDTIME 05/30/18 [History] busPIRone HCl [Buspirone HCl] 7.5 mg PO BID 05/30/18 [History] Past Medical History Cardiovascular History: Reports: Hypertension Gastrointestinal History: Reports: Other (See Below) Other Gastrointestinal History: occasional heartburn Genitourinary History: Reports: Renal Calculus [employer] History: Reports: Musculoskeletal History: Reports: Osteoarthritis Neurological History: Reports: None Psychiatric History: Reports: Anxiety, Depression Endocrine/Metabolic History: Reports: Diabetes, Type II, Obesity/BMI 30+ Hematologic History: Reports: None Immunologic History: Reports: None Oncologic (Cancer) History: Reports: None Dermatologic History: Reports: Psoriasis - Infectious Disease History Infectious Disease History: Reports: Chicken Pox - Past Surgical History Head Surgeries/Procedures: Reports: None GI Surgical History: Reports: Cholecystectomy, Hernia, Abdominal Female Surgical History: Reports: Hysterectomy, Tubal Ligation Other Musculoskeletal Surgeries/Procedures:: hx thor knee arthroscopies Social & Family History - Family History Family Medical History: Noncontributory - Tobacco Use Smoking Status *Q: Unknown Ever Smoked - Caffeine Use Caffeine Use: Reports: Coffee, Soda, Tea Other Caffeine Use: 1-3 cups per day - Recreational Drug Use Recreational Drug Use: No H&P Review of Systems - Review of Systems: Review Of Systems: See Below General: Denies: Fever, Chills, Weakness HEENT: Denies: Headaches, Hearing Changes Pulmonary: Denies: Shortness of Breath, Pleuritic Chest Pain, Cough Cardiovascular: Denies: Chest Pain, Edema, Lightheadedness Gastrointestinal: Denies: Abdominal Pain, Nausea, Vomiting Musculoskeletal: Reports: Other (Left hip pain). Denies: Arm Pain, Back Pain, Hand Pain Psychiatric: Denies: Confusion Neurological: Denies: Confusion, Dizziness, Headache Exam - Exam Exam: See Below - Vital Signs Vital Signs: Last Vital Signs Temp 100.3 F 12/17/19 18:29 Pulse 93 12/17/19 18:29 Resp 14 12/17/19 18:29 BP 163/91 H 12/17/19 18:29 Pulse Ox 94 L 12/17/19 18:29 Weight: 102.512 kg - Exam General: Alert, Oriented HEENT: Hearing Intact, Mucosa Moist & [place] Neck: Trachea Midline Lungs: Clear to Auscultation, Normal Respiratory Effort. No: Crackles, Wheezing Cardiovascular: Regular Rate, Regular Rhythm GI/Abdominal Exam: Soft, Non-Tender, No Distention Extremities: No Pedal Edema, Other (Left hip pain with any movement of the left leg. Sensation to light touch at left lower extremity. No brusing noted at left leg or hip. ) Skin: Warm, Dry Neuro Extensive - Mental Status: Alert, Oriented x3 - Patient Data Lab Results Last 24 hrs: Laboratory Results - last 24 hr 12/17/19 12/17/19 12/17/19 Range/Units 14:50 14:50 14:50 WBC 10.06 (4.0-11.0) K/uL RBC 5.15 (4.30-5.90) M/uL Hgb 15.1 (12.0-16.0) g/dL Hct 44.0 (36.0-46.0) % MCV 85.4 (80.0-98.0) fL MCH 29.3 (27.0-32.0) pg MCHC 34.3 (31.0-37.0) g/dL RDW Std Deviation 39.2 (28.0-62.0) fl RDW Coeff of Thor 13 (11.0-15.0) % Plt Count 277 (150-400) K/uL MPV 9.60 (7.40-12.00) fL Neut % (Auto) 55.1 (48.0-80.0) % Lymph % (Auto) 40.6 H (16.0-40.0) % [place] % (Auto) 3.4 (0.0-15.0) % Eos % (Auto) 0.7 (0.0-7.0) % Baso % (Auto) 0.2 (0.0-1.5) % Neut # (Auto) 5.6 (1.4-5.7) K/uL Lymph # (Auto) 4.1 H (0.6-2.4) K/uL [place] # (Auto) 0.3 (0.0-0.8) K/uL Eos # (Auto) 0.1 (0.0-0.7) K/uL Baso # (Auto) 0.0 (0.0-0.1) K/uL Nucleated RBC % 0.0 /100WBC Nucleated RBCs # 0 K/uL INR 1.08 APTT 21.7 (18.6-31.3) SEC Sodium 141 (136-145) mmol/L Potassium 3.5 (3.5-5.1) mmol/L Chloride 101 (98-107) mmol/L Carbon Dioxide 26.1 (21.0-32.0) mmol/L BUN 17 (7.0-18.0) mg/dL Creatinine 0.8 (0.6-1.0) mg/dL Est Cr Clr Drug Dosing 76.13 mL/min Estimated GFR (MDRD) > 60.0 ml/min Glucose 163 H (74-106) mg/dL Calcium 9.2 (8.5-10.1) mg/dL Total Bilirubin 0.7 (0.2-1.0) mg/dL AST 34 (15-37) IU/L ALT 48 (14-63) IU/L Alkaline Phosphatase 83 (46-116) U/L Total Protein 7.3 (6.4-8.2) g/dL Albumin 4.4 (3.4-5.0) g/dL Globulin 2.9 (2.6-4.0) g/dL Albumin/Globulin Ratio 1.5 (0.9-1.6) SARS Virus RNA (PCR) (NEGATIVE) 12/17/19 Range/Units 16:05 WBC (4.0-11.0) K/uL RBC (4.30-5.90) M/uL Hgb (12.0-16.0) g/dL Hct (36.0-46.0) % MCV (80.0-98.0) fL MCH (27.0-32.0) pg MCHC (31.0-37.0) g/dL RDW Std Deviation (28.0-62.0) fl RDW Coeff of Thor (11.0-15.0) % Plt Count (150-400) K/uL MPV (7.40-12.00) fL Neut % (Auto) (48.0-80.0) % Lymph % (Auto) (16.0-40.0) % [place] % (Auto) (0.0-15.0) % Eos % (Auto) (0.0-7.0) % Baso % (Auto) (0.0-1.5) % Neut # (Auto) (1.4-5.7) K/uL Lymph # (Auto) (0.6-2.4) K/uL [place] # (Auto) (0.0-0.8) K/uL Eos # (Auto) (0.0-0.7) K/uL Baso # (Auto) (0.0-0.1) K/uL Nucleated RBC % /100WBC Nucleated RBCs # K/uL INR APTT (18.6-31.3) SEC Sodium (136-145) mmol/L Potassium (3.5-5.1) mmol/L Chloride (98-107) mmol/L Carbon Dioxide (21.0-32.0) mmol/L BUN (7.0-18.0) mg/dL Creatinine (0.6-1.0) mg/dL Est Cr Clr Drug Dosing mL/min Estimated GFR (MDRD) ml/min Glucose (74-106) mg/dL Calcium (8.5-10.1) mg/dL Total Bilirubin (0.2-1.0) mg/dL AST (15-37) IU/L ALT (14-63) IU/L Alkaline Phosphatase (46-116) U/L Total Protein (6.4-8.2) g/dL Albumin (3.4-5.0) g/dL Globulin (2.6-4.0) g/dL Albumin/Globulin Ratio (0.9-1.6) SARS Virus RNA (PCR) NEGATIVE (NEGATIVE) Result Diagrams: 12/17/19 14:50 12/17/19 14:50 Sepsis Event Note - Evaluation Sepsis Screening Result: No Definite Risk - Focused Exam Vital Signs: Vital Signs Temp Pulse Resp BP Pulse Ox 12/17/19 18:29 100.3 F 93 14 163/91 H 94 L 12/17/19 17:50 96 12 142/81 H 96 12/17/19 17:20 90 14 135/80 96 12/17/19 14:54 97.3 F 71 18 134/70 98 Problem List Initiated/Reviewed/Updated: Yes Orders Last 24hrs: Active Orders 24 hr Category Date Time Status Patient Status [ADT] Routine ADT 12/17/19 15:51 Active Antiembolic Devices [RC] PER UNIT ROUTINE Care 12/17/19 17:46 Active Oxygen Therapy [RC] PRN Care 12/17/19 17:45 Active VTE/DVT Education [RC] PER UNIT ROUTINE Care 12/17/19 17:45 Active Vital Signs [RC] Q4H Care 12/17/19 17:45 Active NPO After Midnight [Nothing per Oral After Midnight Diet 12/17/19 Dinner Active Diet] [DIET] BASIC METABOLIC PANEL,BMP [CHEM] AM Lab 12/18/19 05:11 Ordered CBC WITH AUTO DIFF [HEME] AM Lab 12/18/19 05:11 Ordered Acetaminophen [TylenoL] Med 12/17/19 19:40 Active 650 mg PO Q4H PRN Gabapentin [Neurontin] Med 12/18/19 07:30 Active 100 mg PO ACBREAKFAST Gabapentin [Neurontin] Med 12/17/19 21:00 Active 200 mg PO BEDTIME HYDROmorphone [Dilaudid] Med 12/17/19 18:48 Active 0.5 mg IVPUSH Q2H PRN Insulin Aspart [NovoLOG] Med 12/18/19 07:30 Active See Protocol SUBCUT TIDAC Sodium Chloride 0.9% [Normal Saline] 1,000 ml Med 12/17/19 15:15 Active IV ASDIRECTED Sodium Chloride 0.9% [Saline Flush] Med 12/17/19 14:59 Active 10 ml FLUSH ASDIRECTED PRN Sodium Chloride 0.9% [Saline Flush] Med 12/17/19 14:59 Active 2.5 ml FLUSH ASDIRECTED PRN busPIRone [Buspar] Med 12/17/19 17:45 Active 7.5 mg PO BID hydroCHLOROthiazide Med 12/18/19 09:00 Active 12.5 mg PO DAILY lisinopriL [Prinivil] Med 12/18/19 09:00 Active 10 mg PO DAILY Saline Lock Insert [OM.PC] Stat Oth 12/17/19 14:59 Ordered Sequential Compression Device [OM.PC] Per Unit Routine Oth 12/17/19 17:45 Ordered Medication Orders Acetaminophen (Tylenol) 650 mg PO Q4H PRN PRN Reason: Fever Buspirone HCl (Buspar) 7.5 mg PO BID [facility] Last Admin: 12/17/19 19:01 Dose: 7.5 mg Documented by: PROFLUC Gabapentin (Neurontin) 100 mg PO ACBREAKFAST IAN Gabapentin (Neurontin) 200 mg PO BEDTIME IAN Hydrochlorothiazide (Hydrochlorothiazide) 12.5 mg PO DAILY IAN Hydromorphone HCl (Dilaudid) 0.5 mg IVPUSH Q2H PRN PRN Reason: Pain Last Admin: 12/17/19 19:01 Dose: 0.5 mg Documented by: PROFLUC Sodium Chloride (Normal Saline) 1,000 mls @ 125 mls/hr IV ASDIRECTED IAN Last Admin: 12/17/19 15:09 Dose: 125 mls/hr Documented by: MURDNIC Insulin Aspart (Novolog) 0 unit SUBCUT TIDAC IAN; Protocol Lisinopril (Prinivil) 10 mg PO DAILY IAN Sodium Chloride (Saline Flush) 10 ml FLUSH ASDIRECTED PRN PRN Reason: Keep Vein Open Last Admin: 12/17/19 15:09 Dose: 10 ml Documented by: NAYA Sodium Chloride (Saline Flush) 2.5 ml FLUSH ASDIRECTED PRN PRN Reason: Keep Vein Open Last Admin: 12/17/19 15:09 Dose: 2.5 ml Documented by: NAYA Medical Managment of patient requiring surgical correction of Left hip intertrochanteric fracture: Patient made NPO after midnight, Pain control with 0 .5mg Dilaudid Q2HR PRN, Sliding Scale Insulin (Low Dose), 100ml/hr LR, <Francisco Christian - Last Filed: 12/18/19 12:55> H&P History of Present Illness - General Admit Problem/Dx: Admission Diagnosis/Problem Admission Diagnosis/Problem Hip fracture requiring operative repair - History of Present Illness Initial Comments - Free Text/Narative: I performed a history and physical exam of the patient and discussed management with resident. I have reviewed the residents note and agree with documented findings and plan unless otherwise specified in my note. Exam - Vital Signs Vital Signs: Last Vital Signs Temp 36.4 C 12/18/19 07:43 Pulse 83 12/18/19 07:43 Resp 18 12/18/19 07:43 BP 137/90 12/18/19 08:37 Pulse Ox 95 12/18/19 07:43 - Patient Data Lab Results Last 24 hrs: Laboratory Results - last 24 hr 12/17/19 12/17/19 12/17/19 Range/Units 14:50 14:50 14:50 WBC 10.06 (4.0-11.0) K/uL RBC 5.15 (4.30-5.90) M/uL Hgb 15.1 (12.0-16.0) g/dL Hct 44.0 (36.0-46.0) % MCV 85.4 (80.0-98.0) fL MCH 29.3 (27.0-32.0) pg MCHC 34.3 (31.0-37.0) g/dL RDW Std Deviation 39.2 (28.0-62.0) fl RDW Coeff of Thor 13 (11.0-15.0) % Plt Count 277 (150-400) K/uL MPV 9.60 (7.40-12.00) fL Neut % (Auto) 55.1 (48.0-80.0) % Lymph % (Auto) 40.6 H (16.0-40.0) % [place] % (Auto) 3.4 (0.0-15.0) % Eos % (Auto) 0.7 (0.0-7.0) % Baso % (Auto) 0.2 (0.0-1.5) % Neut # (Auto) 5.6 (1.4-5.7) K/uL Lymph # (Auto) 4.1 H (0.6-2.4) K/uL [place] # (Auto) 0.3 (0.0-0.8) K/uL Eos # (Auto) 0.1 (0.0-0.7) K/uL Baso # (Auto) 0.0 (0.0-0.1) K/uL Nucleated RBC % 0.0 /100WBC Nucleated RBCs # 0 K/uL INR 1.08 APTT 21.7 (18.6-31.3) SEC Sodium 141 (136-145) mmol/L Potassium 3.5 (3.5-5.1) mmol/L Chloride 101 (98-107) mmol/L Carbon Dioxide 26.1 (21.0-32.0) mmol/L BUN 17 (7.0-18.0) mg/dL Creatinine 0.8 (0.6-1.0) mg/dL Est Cr Clr Drug Dosing 76.13 mL/min Estimated GFR (MDRD) > 60.0 ml/min Glucose 163 H (74-106) mg/dL POC Glucose (60-110) mg/dL Calcium 9.2 (8.5-10.1) mg/dL Total Bilirubin 0.7 (0.2-1.0) mg/dL AST 34 (15-37) IU/L ALT 48 (14-63) IU/L Alkaline Phosphatase 83 (46-116) U/L Total Protein 7.3 (6.4-8.2) g/dL Albumin 4.4 (3.4-5.0) g/dL Globulin 2.9 (2.6-4.0) g/dL Albumin/Globulin Ratio 1.5 (0.9-1.6) Urine Color Urine Appearance Urine pH (5.0-8.0) Ur Specific [place] (1.001-1.035) Urine Protein (NEGATIVE) mg/dL Urine Glucose (UA) (NEGATIVE) mg/dL Urine Ketones (NEGATIVE) mg/dL Urine Occult Blood (NEGATIVE) Urine Nitrite (NEGATIVE) Urine Bilirubin (NEGATIVE) Urine Urobilinogen (<2.0) EU/dL Ur Leukocyte Esterase (NEGATIVE) SARS Virus RNA (PCR) (NEGATIVE) Blood Type Antibody Screen 12/17/19 12/18/19 12/18/19 Range/Units 16:05 04:58 04:58 WBC 7.82 (4.0-11.0) K/uL RBC 4.29 L (4.30-5.90) M/uL Hgb 12.5 (12.0-16.0) g/dL Hct 37.2 (36.0-46.0) % MCV 86.7 (80.0-98.0) fL MCH 29.1 (27.0-32.0) pg MCHC 33.6 (31.0-37.0) g/dL RDW Std Deviation 39.8 (28.0-62.0) fl RDW Coeff of Thor 13 (11.0-15.0) % Plt Count 226 (150-400) K/uL MPV 9.60 (7.40-12.00) fL Neut % (Auto) 62.1 (48.0-80.0) % Lymph % (Auto) 30.8 (16.0-40.0) % [place] % (Auto) 6.6 (0.0-15.0) % Eos % (Auto) 0.5 (0.0-7.0) % Baso % (Auto) 0.0 (0.0-1.5) % Neut # (Auto) 4.9 (1.4-5.7) K/uL Lymph # (Auto) 2.4 (0.6-2.4) K/uL [place] # (Auto) 0.5 (0.0-0.8) K/uL Eos # (Auto) 0.0 (0.0-0.7) K/uL Baso # (Auto) 0.0 (0.0-0.1) K/uL Nucleated RBC % 0.0 /100WBC Nucleated RBCs # 0 K/uL INR APTT (18.6-31.3) SEC Sodium 143 (136-145) mmol/L Potassium 3.7 (3.5-5.1) mmol/L Chloride 106 (98-107) mmol/L Carbon Dioxide 27.7 (21.0-32.0) mmol/L BUN 7 (7.0-18.0) mg/dL Creatinine 0.6 (0.6-1.0) mg/dL Est Cr Clr Drug Dosing 89.70 mL/min Estimated GFR (MDRD) > 60.0 ml/min Glucose 110 H (74-106) mg/dL POC Glucose (60-110) mg/dL Calcium 8.6 (8.5-10.1) mg/dL Total Bilirubin (0.2-1.0) mg/dL AST (15-37) IU/L ALT (14-63) IU/L Alkaline Phosphatase (46-116) U/L Total Protein (6.4-8.2) g/dL Albumin (3.4-5.0) g/dL Globulin (2.6-4.0) g/dL Albumin/Globulin Ratio (0.9-1.6) Urine Color Urine Appearance Urine pH (5.0-8.0) Ur Specific [place] (1.001-1.035) Urine Protein (NEGATIVE) mg/dL Urine Glucose (UA) (NEGATIVE) mg/dL Urine Ketones (NEGATIVE) mg/dL Urine Occult Blood (NEGATIVE) Urine Nitrite (NEGATIVE) Urine Bilirubin (NEGATIVE) Urine Urobilinogen (<2.0) EU/dL Ur Leukocyte Esterase (NEGATIVE) SARS Virus RNA (PCR) NEGATIVE (NEGATIVE) Blood Type Antibody Screen 12/18/19 12/18/19 12/18/19 Range/Units 06:30 08:25 10:46 WBC (4.0-11.0) K/uL RBC (4.30-5.90) M/uL Hgb (12.0-16.0) g/dL Hct (36.0-46.0) % MCV (80.0-98.0) fL MCH (27.0-32.0) pg MCHC (31.0-37.0) g/dL RDW Std Deviation (28.0-62.0) fl RDW Coeff of Thor (11.0-15.0) % Plt Count (150-400) K/uL MPV (7.40-12.00) fL Neut % (Auto) (48.0-80.0) % Lymph % (Auto) (16.0-40.0) % [place] % (Auto) (0.0-15.0) % Eos % (Auto) (0.0-7.0) % Baso % (Auto) (0.0-1.5) % Neut # (Auto) (1.4-5.7) K/uL Lymph # (Auto) (0.6-2.4) K/uL [place] # (Auto) (0.0-0.8) K/uL Eos # (Auto) (0.0-0.7) K/uL Baso # (Auto) (0.0-0.1) K/uL Nucleated RBC % /100WBC Nucleated RBCs # K/uL INR APTT (18.6-31.3) SEC Sodium (136-145) mmol/L Potassium (3.5-5.1) mmol/L Chloride (98-107) mmol/L Carbon Dioxide (21.0-32.0) mmol/L BUN (7.0-18.0) mg/dL Creatinine (0.6-1.0) mg/dL Est Cr Clr Drug Dosing mL/min Estimated GFR (MDRD) ml/min Glucose (74-106) mg/dL POC Glucose 101 (60-110) mg/dL Calcium (8.5-10.1) mg/dL Total Bilirubin (0.2-1.0) mg/dL AST (15-37) IU/L ALT (14-63) IU/L Alkaline Phosphatase (46-116) U/L Total Protein (6.4-8.2) g/dL Albumin (3.4-5.0) g/dL Globulin (2.6-4.0) g/dL Albumin/Globulin Ratio (0.9-1.6) Urine Color YELLOW Urine Appearance CLEAR Urine pH 6.0 (5.0-8.0) Ur Specific [place] >= 1.030 (1.001-1.035) Urine Protein NEGATIVE (NEGATIVE) mg/dL Urine Glucose (UA) NEGATIVE (NEGATIVE) mg/dL Urine Ketones NEGATIVE (NEGATIVE) mg/dL Urine Occult Blood NEGATIVE (NEGATIVE) Urine Nitrite NEGATIVE (NEGATIVE) Urine Bilirubin NEGATIVE (NEGATIVE) Urine Urobilinogen 1.0 (<2.0) EU/dL Ur Leukocyte Esterase NEGATIVE (NEGATIVE) SARS Virus RNA (PCR) (NEGATIVE) Blood Type O POSITIVE Antibody Screen NEGATIVE 12/18/19 Range/Units 11:38 WBC (4.0-11.0) K/uL RBC (4.30-5.90) M/uL Hgb (12.0-16.0) g/dL Hct (36.0-46.0) % MCV (80.0-98.0) fL MCH (27.0-32.0) pg MCHC (31.0-37.0) g/dL RDW Std Deviation (28.0-62.0) fl RDW Coeff of Thor (11.0-15.0) % Plt Count (150-400) K/uL MPV (7.40-12.00) fL Neut % (Auto) (48.0-80.0) % Lymph % (Auto) (16.0-40.0) % [place] % (Auto) (0.0-15.0) % Eos % (Auto) (0.0-7.0) % Baso % (Auto) (0.0-1.5) % Neut # (Auto) (1.4-5.7) K/uL Lymph # (Auto) (0.6-2.4) K/uL [place] # (Auto) (0.0-0.8) K/uL Eos # (Auto) (0.0-0.7) K/uL Baso # (Auto) (0.0-0.1) K/uL Nucleated RBC % /100WBC Nucleated RBCs # K/uL INR APTT (18.6-31.3) SEC Sodium (136-145) mmol/L Potassium (3.5-5.1) mmol/L Chloride (98-107) mmol/L Carbon Dioxide (21.0-32.0) mmol/L BUN (7.0-18.0) mg/dL Creatinine (0.6-1.0) mg/dL Est Cr Clr Drug Dosing mL/min Estimated GFR (MDRD) ml/min Glucose (74-106) mg/dL POC Glucose 89 (60-110) mg/dL Calcium (8.5-10.1) mg/dL Total Bilirubin (0.2-1.0) mg/dL AST (15-37) IU/L ALT (14-63) IU/L Alkaline Phosphatase (46-116) U/L Total Protein (6.4-8.2) g/dL Albumin (3.4-5.0) g/dL Globulin (2.6-4.0) g/dL Albumin/Globulin Ratio (0.9-1.6) Urine Color Urine Appearance Urine pH (5.0-8.0) Ur Specific [place] (1.001-1.035) Urine Protein (NEGATIVE) mg/dL Urine Glucose (UA) (NEGATIVE) mg/dL Urine Ketones (NEGATIVE) mg/dL Urine Occult Blood (NEGATIVE) Urine Nitrite (NEGATIVE) Urine Bilirubin (NEGATIVE) Urine Urobilinogen (<2.0) EU/dL Ur Leukocyte Esterase (NEGATIVE) SARS Virus RNA (PCR) (NEGATIVE) Blood Type Antibody Screen Result Diagrams: 12/18/19 04:58 12/18/19 04:58 Sepsis Event Note - Focused Exam Vital Signs: Vital Signs Temp Pulse Resp BP BP Pulse Ox 12/18/19 08:37 137/90 12/18/19 07:43 36.4 C 83 18 137/90 95 12/18/19 04:00 37.1 C 84 18 116/68 95 Orders Last 24hrs: Active Orders 24 hr Category Date Time Status Patient Status [ADT] Stat ADT 12/18/19 10:19 Active Antiembolic Devices [RC] PER UNIT ROUTINE Care 12/17/19 17:46 Active EKG 12 Lead [EKG Documentation Completion] [RC] ROUTINE Care 12/18/19 07:13 Active Insert Urinary Catheter [OM.PC] Q24H Care 12/17/19 21:00 Ordered Notify Provider Consults [RC] ASDIRECTED Care 12/18/19 10:14 Active Oxygen Therapy [RC] PRN Care 12/17/19 17:45 Active Urinary Catheter Assessment [RC] ASDIRECTED Care 12/17/19 20:55 Active VTE/DVT Education [RC] PER UNIT ROUTINE Care 12/17/19 17:45 Active Vital Signs [RC] Q4H Care 12/17/19 17:45 Active Consult to Physician [CONS] Routine Cons 12/18/19 10:13 Active NPO After Midnight [Nothing per Oral After Midnight Diet 12/17/19 Dinner Active Diet] [DIET] Acetaminophen [TylenoL] Med 12/17/19 19:40 Active 650 mg PO Q4H PRN Acetaminophen/oxyCODONE [Percocet 325-5 MG] Med 12/17/19 22:30 Active 1 tab PO Q6H Gabapentin [Neurontin] Med 12/18/19 07:30 Active 100 mg PO ACBREAKFAST Gabapentin [Neurontin] Med 12/17/19 21:00 Active 200 mg PO BEDTIME HYDROmorphone [Dilaudid] Med 12/17/19 22:30 Active 1 mg IVPUSH Q2H PRN Insulin Aspart [NovoLOG] Med 12/18/19 07:30 Active See Protocol SUBCUT TIDAC Lactated Ringers [Ringers, Lactated] 1,000 ml Med 12/17/19 20:15 Active IV ASDIRECTED Sodium Chloride 0.9% [Saline Flush] Med 12/17/19 14:59 Active 10 ml FLUSH ASDIRECTED PRN Sodium Chloride 0.9% [Saline Flush] Med 12/17/19 14:59 Active 2.5 ml FLUSH ASDIRECTED PRN busPIRone [Buspar] Med 12/17/19 17:45 Active 7.5 mg PO BID hydroCHLOROthiazide Med 12/18/19 09:00 Active 12.5 mg PO DAILY lisinopriL [Prinivil] Med 12/18/19 09:00 Active 10 mg PO DAILY Saline Lock Insert [OM.PC] Stat Oth 12/17/19 14:59 Ordered Sequential Compression Device [OM.PC] Per Unit Routine Oth 12/17/19 17:45 Ordered Resuscitation Status Routine Resus Stat 12/18/19 10:17 Ordered Medication Orders Acetaminophen (Tylenol) 650 mg PO Q4H PRN PRN Reason: Fever Buspirone HCl (Buspar) 7.5 mg PO BID IAN Last Admin: 12/18/19 08:38 Dose: 7.5 mg Documented by: Admin: 12/17/19 21:30 Dose: 7.5 mg Documented by: Admin: 12/17/19 19:01 Dose: 7.5 mg Documented by: NEGRITO Gabapentin (Neurontin) 100 mg PO ACBREAKFAST [facility] Last Admin: 12/18/19 07:07 Dose: Not Given Documented by: TASNEEM Gabapentin (Neurontin) 200 mg PO BEDTIME [facility] Last Admin: 12/17/19 21:30 Dose: 200 mg Documented by: TASNEEM Hydrochlorothiazide (Hydrochlorothiazide) 12.5 mg PO DAILY [facility] Last Admin: 12/18/19 08:38 Dose: 12.5 mg Documented by: LO Hydromorphone HCl (Dilaudid) 1 mg IVPUSH Q2H PRN PRN Reason: Pain Last Admin: 12/18/19 08:29 Dose: 1 mg Documented by: LO Lactated Ringer's (Ringers, Lactated) 1,000 mls @ 100 mls/hr IV ASDIRECTED [facility] Last Admin: 12/18/19 06:23 Dose: 100 mls/hr Documented by: Infusion: 12/18/19 06:23 Dose: 100 mls/hr Documented by: Admin: 12/17/19 21:33 Dose: 100 mls/hr Documented by: TASNEEM Insulin Aspart (Novolog) 0 unit SUBCUT TIDACOX [facility]; Protocol Last Admin: 12/18/19 11:55 Dose: Not Given Documented by: Admin: 12/18/19 07:08 Dose: Not Given Documented by: TASNEEM Lisinopril (Prinivil) 10 mg PO DAILY [facility] Last Admin: 12/18/19 08:37 Dose: 10 mg Documented by: LO Oxycodone/Acetaminophen (Percocet 325-5 Mg) 1 tab PO Q6H [facility] Last Admin: 12/18/19 10:38 Dose: 1 tab Documented by: Admin: 12/18/19 04:19 Dose: 1 tab Documented by: Admin: 12/17/19 23:41 Dose: 1 tab Documented by: TASNEEM Sodium Chloride (Saline Flush) 10 ml FLUSH ASDIRECTED PRN PRN Reason: Keep Vein Open Last Admin: 12/17/19 15:09 Dose: 10 ml Documented by: NAYA Sodium Chloride (Saline Flush) 2.5 ml FLUSH ASDIRECTED PRN PRN Reason: Keep Vein Open Last Admin: 12/17/19 15:09 Dose: 2.5 ml Documented by: NAYA
[2019-12-17] MEDS: Gabapentin 100 MG Cap PO SCH (21:30)
[2019-12-17] MEDS: Lactated Ringers 1,000 ML IV SCH (21:33)
[2019-12-17] MEDS ORDERED: HYDROmorphone 1 MG/ML Syringe IVPUSH PRN (22:30)
[2019-12-17] MEDS ORDERED: diphenhydrAMINE 50 MG/ML SDV IVPUSH ONE (22:33)
[2019-12-17] MEDS ORDERED: LORazepam 2 MG/ML SDV IVPUSH ONE (22:35)
[2019-12-17] MEDS: Acetaminophen/oxyCODONE 325-5 MG Tab PO SCH (23:41)
[2019-12-18] MEDS: Acetaminophen/oxyCODONE 325-5 MG Tab PO SCH ×2 (04:19→10:38)
[2019-12-18 06:19] LABS: BLOOD UREA NITROGEN,BUN 7 mg/dL (7.0-18.0); CARBON DIOXIDE,CO2 27.7 mmol/L (21.0-32.0); CHLORIDE,CL 106 mmol/L (98-107); GLUCOSE RANDOM 110 mg/dL (74-106); POTASSIUM,K 3.7 mmol/L (3.5-5.1); SODIUM,NA 143 mmol/L (136-145)
[2019-12-18] MEDS: Lactated Ringers 1,000 ML IV SCH ×2 (06:23→16:33)
[2019-12-18] MEDS: Gabapentin 100 MG Cap PO SCH ×2 (07:07→21:27)
[2019-12-18] MEDS: Insulin Aspart 100 Units/ML 3 ML Pen SUBCUT SCH ×3 (07:08→17:44)
--- NOTE | 2019-12-18 08:09 | PCM.PREANE ---
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, no problems since that she is aware of.) Other Type of Anesthesia Reaction Comment: "I am hard to wake & at times have N&V after surgery" Family History of Anesthesia Reaction: No Transfusion History: Unknown Intubation History: Unknown - Review of Systems General: No Symptoms Pulmonary: No Symptoms Cardiovascular: No Symptoms Gastrointestinal: No Symptoms Neurological: No Symptoms Other: Reports: None - Physical Assessment NPO Status Date: 12/17/19 NPO Status Time: 00:00 Vital Signs: Last Vital Signs Temp 36.4 C 12/18/19 07:43 Pulse 83 12/18/19 07:43 Resp 18 12/18/19 07:43 BP 137/90 12/18/19 07:43 Pulse Ox 95 12/18/19 07:43 Height: 1.6 m Weight: 102.512 kg ASA Class: 3 Mental Status: Alert & Oriented x3 (anxious because she is alone due to the covid visitation restrictions) Airway Class: Mallampati = 3 (short thick, neck) Dentition: Reports: Missing Tooth/Teeth (right side molar) Thyro-Mental Finger Breadths: 3 Mouth Opening Finger Breadths: 3 ROM/Head Extension: Full Lungs: Clear to Auscultation, Normal Respiratory Effort Cardiovascular: Regular Rate, Regular Rhythm - Lab Values: Laboratory Last Values WBC 7.82 K/uL (4.0-11.0) 12/18/19 04:58 RBC 4.29 M/uL (4.30-5.90) L 12/18/19 04:58 Hgb 12.5 g/dL (12.0-16.0) 12/18/19 04:58 Hct 37.2 % (36.0-46.0) 12/18/19 04:58 MCV 86.7 fL (80.0-98.0) 12/18/19 04:58 MCH 29.1 pg (27.0-32.0) 12/18/19 04:58 MCHC 33.6 g/dL (31.0-37.0) 12/18/19 04:58 RDW Std Deviation 39.8 fl (28.0-62.0) 12/18/19 04:58 RDW Coeff of Thor 13 % (11.0-15.0) 12/18/19 04:58 Plt Count 226 K/uL (150-400) 12/18/19 04:58 MPV 9.60 fL (7.40-12.00) 12/18/19 04:58 Neut % (Auto) 62.1 % (48.0-80.0) 12/18/19 04:58 Lymph % (Auto) 30.8 % (16.0-40.0) 12/18/19 04:58 [place] % (Auto) 6.6 % (0.0-15.0) 12/18/19 04:58 Eos % (Auto) 0.5 % (0.0-7.0) 12/18/19 04:58 Baso % (Auto) 0.0 % (0.0-1.5) 12/18/19 04:58 Neut # (Auto) 4.9 K/uL (1.4-5.7) 12/18/19 04:58 Lymph # (Auto) 2.4 K/uL (0.6-2.4) 12/18/19 04:58 Brewster # (Auto) 0.5 K/uL (0.0-0.8) 12/18/19 04:58 Eos # (Auto) 0.0 K/uL (0.0-0.7) 12/18/19 04:58 Baso # (Auto) 0.0 K/uL (0.0-0.1) 12/18/19 04:58 Nucleated RBC % 0.0 /100WBC 12/18/19 04:58 Nucleated RBCs # 0 K/uL 12/18/19 04:58 INR 1.08 12/17/19 14:50 APTT 21.7 SEC (18.6-31.3) 12/17/19 14:50 Sodium 143 mmol/L (136-145) 12/18/19 04:58 Potassium 3.7 mmol/L (3.5-5.1) 12/18/19 04:58 Chloride 106 mmol/L (98-107) 12/18/19 04:58 Carbon Dioxide 27.7 mmol/L (21.0-32.0) 12/18/19 04:58 BUN 7 mg/dL (7.0-18.0) 12/18/19 04:58 Creatinine 0.6 mg/dL (0.6-1.0) 12/18/19 04:58 Est Cr Clr Drug Dosing 89.70 mL/min 12/18/19 04:58 Estimated GFR (MDRD) > 60.0 ml/min 12/18/19 04:58 Glucose 110 mg/dL (74-106) H 12/18/19 04:58 POC Glucose 101 mg/dL (60-110) 12/18/19 06:30 Calcium 8.6 mg/dL (8.5-10.1) 12/18/19 04:58 Total Bilirubin 0.7 mg/dL (0.2-1.0) 12/17/19 14:50 AST 34 IU/L (15-37) 12/17/19 14:50 ALT 48 IU/L (14-63) 12/17/19 14:50 Alkaline Phosphatase 83 U/L (46-116) 12/17/19 14:50 Total Protein 7.3 g/dL (6.4-8.2) 12/17/19 14:50 Albumin 4.4 g/dL (3.4-5.0) 12/17/19 14:50 Globulin 2.9 g/dL (2.6-4.0) 12/17/19 14:50 Albumin/Globulin Ratio 1.5 (0.9-1.6) 12/17/19 14:50 SARS Virus RNA (PCR) NEGATIVE (NEGATIVE) 12/17/19 16:05 - Allergies Allergies/Adverse Reactions: Allergies Allergy/AdvReac Type Severity Reaction Status Date / Time artificial sweetners Allergy Headache Uncoded 12/18/19 00:39 - Acknowledgements Anesthesia Type Planned: General Anesthesia (will do this if patient is unable to tolerate the spinal due to pain or position. ), Spinal (discussed spinal. patient would like this but is anxious. told her that she can always have a general anesthetic if she changes her mind.) Pt an Appropriate Candidate for the Planned Anesthesia: Yes Alternatives and Risks of Anesthesia Discussed w Pt/Guardian: Yes Pt/Guardian Understands and Agrees with Anesthesia Plan: Yes PreAnesthesia Questionnaire HEENT History: Reports: None Cardiovascular History: Reports: Hypertension, Other (See Below) (ekg nsr, no acute ischemia) Respiratory History: Reports: Other (See Below) (possible sleep apnea (undiagnosed)) Gastrointestinal History: Reports: Other (See Below) Other Gastrointestinal History: occasional heartburn-secondary to diet Genitourinary History: Reports: Renal Calculus [employer] History: Reports: Musculoskeletal History: Reports: Osteoarthritis (knee pain=-uses marijuana for this because pain medications are not working.) Neurological History: Reports: None Psychiatric History: Reports: Anxiety (crying at the bedside during the evaluation), Depression Endocrine/Metabolic History: Reports: Diabetes, Type II, Obesity/BMI 30+ (bmi 40-morbid obesity) Hematologic History: Reports: None Immunologic History: Reports: None Oncologic (Cancer) History: Reports: None Dermatologic History: Reports: Psoriasis - Infectious Disease History Infectious Disease History: Reports: Chicken Pox - Past Surgical History Head Surgeries/Procedures: Reports: None GI Surgical History: Reports: Cholecystectomy, Hernia, Abdominal Female Surgical History: Reports: Hysterectomy, Tubal Ligation Musculoskeletal Surgical History: Reports: Arthroscopic Knee (bilateral), Knee Replacement (left) Other Musculoskeletal Surgeries/Procedures:: hx thor knee arthroscopies - History Comment History Comment: occasional etoh use. - SUBSTANCE USE Smoking Status *Q: Unknown Ever Smoked Tobacco Use Within Last Twelve Months: No Recreational Drug Use History: No Recreational Drug Type: Reports: Marijuana/Hashish (used 4 days ago.) - HOME MEDS Home Medications: Home Meds Hydrochlorothiazide 12.5 mg PO DAILY 09/16/16 [History] metFORMIN HCl [Metformin HCl] 500 mg PO BID 09/16/16 [History] Lisinopril 10 mg PO DAILY 06/26/17 [History] Gabapentin [Neurontin] 1 tab PO ACBREAKFAST 05/30/18 [History] Gabapentin [Neurontin] 2 tab PO BEDTIME 05/30/18 [History] busPIRone HCl [Buspirone HCl] 7.5 mg PO BID 05/30/18 [History] - CURRENT (IN HOUSE) MEDS Current Meds: Current Medications Acetaminophen (Tylenol) 650 mg PO Q4H PRN PRN Reason: Fever Buspirone HCl (Buspar) 7.5 mg PO BID [facility] Last Admin: 12/17/19 21:30 Dose: 7.5 mg Documented by: Gabapentin (Neurontin) 100 mg PO ACBREAKFAST [facility] Last Admin: 12/18/19 07:07 Dose: Not Given Documented by: Gabapentin (Neurontin) 200 mg PO BEDTIME [facility] Last Admin: 12/17/19 21:30 Dose: 200 mg Documented by: Hydrochlorothiazide (Hydrochlorothiazide) 12.5 mg PO DAILY [facility] Hydromorphone HCl (Dilaudid) 1 mg IVPUSH Q2H PRN PRN Reason: Pain Lactated Ringer's (Ringers, Lactated) 1,000 mls @ 100 mls/hr IV ASDIRECTED [facility] Last Admin: 12/18/19 06:23 Dose: 100 mls/hr Documented by: Insulin Aspart (Novolog) 0 unit SUBCUT TIDAC [facility]; Protocol Last Admin: 12/18/19 07:08 Dose: Not Given Documented by: Lisinopril (Prinivil) 10 mg PO DAILY [facility] Oxycodone/Acetaminophen (Percocet 325-5 Mg) 1 tab PO Q6H [facility] Last Admin: 12/18/19 04:19 Dose: 1 tab Documented by: Sodium Chloride (Saline Flush) 10 ml FLUSH ASDIRECTED PRN PRN Reason: Keep Vein Open Last Admin: 12/17/19 15:09 Dose: 10 ml Documented by: Sodium Chloride (Saline Flush) 2.5 ml FLUSH ASDIRECTED PRN PRN Reason: Keep Vein Open Last Admin: 12/17/19 15:09 Dose: 2.5 ml Documented by: Discontinued Medications Diphenhydramine HCl (Benadryl) 25 mg IVPUSH ONETIME ONE Stop: 12/17/19 22:34 Last Admin: 12/17/19 22:51 Dose: 25 mg Documented by: Fentanyl (Fentanyl) 100 mcg IVPUSH ONETIME ONE Stop: 12/17/19 16:57 Last Admin: 12/17/19 17:11 Dose: 100 mcg Documented by: Hydromorphone HCl (Dilaudid) 0.5 mg IVPUSH Q2H PRN PRN Reason: Pain Last Admin: 12/17/19 21:25 Dose: 0.5 mg Documented by: Sodium Chloride (Normal Saline) 1,000 mls @ 125 mls/hr IV ASDIRECTED [facility] Last Admin: 12/17/19 15:09 Dose: 125 mls/hr Documented by: Lorazepam (Ativan) 0.5 mg IVPUSH ONETIME ONE Stop: 12/17/19 22:36 Last Admin: 12/17/19 22:51 Dose: 0.5 mg Documented by: Morphine Sulfate (Morphine) 4 mg IVPUSH ONETIME ONE Stop: 12/17/19 15:00 Last Admin: 12/17/19 15:12 Dose: 4 mg Documented by: Morphine Sulfate (Morphine) 2 mg IVPUSH Q2H PRN PRN Reason: Pain Stop: 12/18/19 17:46 Ondansetron HCl (Zofran) 4 mg IVPUSH ONETIME ONE Stop: 12/17/19 15:00 Last Admin: 12/17/19 15:12 Dose: 4 mg Documented by:
[2019-12-18] MEDS: Lisinopril 10 MG Tab PO SCH (08:37)
[2019-12-18] MEDS: Hydrochlorothiazide 12.5 MG Cap PO SCH (08:38)
[2019-12-18] MEDS: busPIRone 5 MG Tab PO SCH ×2 (08:38→21:27)
[2019-12-18] MEDS ORDERED: Midazolam 1 MG/ML 2 ML SDV ONE ×2 (10:01→12:58)
[2019-12-18] MEDS ORDERED: fentaNYL 100 MCG/2 ML SDV ONE (10:01)
[2019-12-18] MEDS ORDERED: Propofol 200 MG/20 ML SDV ONE ×4 (10:01→14:33)
[2019-12-18] MEDS ORDERED: Ondansetron 4 MG/2 ML SDV ONE (10:02)
--- NOTE | 2019-12-18 12:26 | PCM.PN ---
- General Info Date of Service: 12/18/19 Subjective Update: Patient states that she has hip pain with any leg movement, 08/17. Denies fever, chills, nausea, abdominal pain, headaches. - Review of Systems General: Denies: Fever, Chills, Night Sweats HEENT: Denies: Headaches, Visual Changes Pulmonary: Denies: Shortness of Breath, Pleuritic Chest Pain, Cough Cardiovascular: Denies: Chest Pain, Edema, Lightheadedness Gastrointestinal: Denies: Abdominal Pain, Diarrhea, Nausea Musculoskeletal: Reports: Other (Hip pain with leg movements) Skin: Denies: Cyanosis Neurological: Denies: Confusion - Patient Data Vitals - Most Recent: Last Vital Signs Temp 97.6 F 12/18/19 07:43 Pulse 83 12/18/19 07:43 Resp 18 12/18/19 07:43 BP 137/90 12/18/19 08:37 Pulse Ox 95 12/18/19 07:43 Weight - Most Recent: 226 lb I&O - Last 24 Hours: Intake & Output 12/17/19 12/18/19 12/18/19 22:59 06:59 14:59 Intake Total 1115 Output Total 1400 Balance -285 Lab Results Last 24 Hours: Laboratory Results - last 24 hr 12/17/19 12/17/19 12/17/19 Range/Units 14:50 14:50 14:50 WBC 10.06 (4.0-11.0) K/uL RBC 5.15 (4.30-5.90) M/uL Hgb 15.1 (12.0-16.0) g/dL Hct 44.0 (36.0-46.0) % MCV 85.4 (80.0-98.0) fL MCH 29.3 (27.0-32.0) pg MCHC 34.3 (31.0-37.0) g/dL RDW Std Deviation 39.2 (28.0-62.0) fl RDW Coeff of Thor 13 (11.0-15.0) % Plt Count 277 (150-400) K/uL MPV 9.60 (7.40-12.00) fL Neut % (Auto) 55.1 (48.0-80.0) % Lymph % (Auto) 40.6 H (16.0-40.0) % Crawford % (Auto) 3.4 (0.0-15.0) % Eos % (Auto) 0.7 (0.0-7.0) % Baso % (Auto) 0.2 (0.0-1.5) % Neut # (Auto) 5.6 (1.4-5.7) K/uL Lymph # (Auto) 4.1 H (0.6-2.4) K/uL Crawford # (Auto) 0.3 (0.0-0.8) K/uL Eos # (Auto) 0.1 (0.0-0.7) K/uL Baso # (Auto) 0.0 (0.0-0.1) K/uL Nucleated RBC % 0.0 /100WBC Nucleated RBCs # 0 K/uL INR 1.08 APTT 21.7 (18.6-31.3) SEC Sodium 141 (136-145) mmol/L Potassium 3.5 (3.5-5.1) mmol/L Chloride 101 (98-107) mmol/L Carbon Dioxide 26.1 (21.0-32.0) mmol/L BUN 17 (7.0-18.0) mg/dL Creatinine 0.8 (0.6-1.0) mg/dL Est Cr Clr Drug Dosing 76.13 mL/min Estimated GFR (MDRD) > 60.0 ml/min Glucose 163 H (74-106) mg/dL POC Glucose (60-110) mg/dL Calcium 9.2 (8.5-10.1) mg/dL Total Bilirubin 0.7 (0.2-1.0) mg/dL AST 34 (15-37) IU/L ALT 48 (14-63) IU/L Alkaline Phosphatase 83 (46-116) U/L Total Protein 7.3 (6.4-8.2) g/dL Albumin 4.4 (3.4-5.0) g/dL Globulin 2.9 (2.6-4.0) g/dL Albumin/Globulin Ratio 1.5 (0.9-1.6) Urine Color Urine Appearance Urine pH (5.0-8.0) Ur Specific [place] (1.001-1.035) Urine Protein (NEGATIVE) mg/dL Urine Glucose (UA) (NEGATIVE) mg/dL Urine Ketones (NEGATIVE) mg/dL Urine Occult Blood (NEGATIVE) Urine Nitrite (NEGATIVE) Urine Bilirubin (NEGATIVE) Urine Urobilinogen (<2.0) EU/dL Ur Leukocyte Esterase (NEGATIVE) SARS Virus RNA (PCR) (NEGATIVE) Blood Type Antibody Screen 12/17/19 12/18/19 12/18/19 Range/Units 16:05 04:58 04:58 WBC 7.82 (4.0-11.0) K/uL RBC 4.29 L (4.30-5.90) M/uL Hgb 12.5 (12.0-16.0) g/dL Hct 37.2 (36.0-46.0) % MCV 86.7 (80.0-98.0) fL MCH 29.1 (27.0-32.0) pg MCHC 33.6 (31.0-37.0) g/dL RDW Std Deviation 39.8 (28.0-62.0) fl RDW Coeff of Thor 13 (11.0-15.0) % Plt Count 226 (150-400) K/uL MPV 9.60 (7.40-12.00) fL Neut % (Auto) 62.1 (48.0-80.0) % Lymph % (Auto) 30.8 (16.0-40.0) % Crawford % (Auto) 6.6 (0.0-15.0) % Eos % (Auto) 0.5 (0.0-7.0) % Baso % (Auto) 0.0 (0.0-1.5) % Neut # (Auto) 4.9 (1.4-5.7) K/uL Lymph # (Auto) 2.4 (0.6-2.4) K/uL Crawford # (Auto) 0.5 (0.0-0.8) K/uL Eos # (Auto) 0.0 (0.0-0.7) K/uL Baso # (Auto) 0.0 (0.0-0.1) K/uL Nucleated RBC % 0.0 /100WBC Nucleated RBCs # 0 K/uL INR APTT (18.6-31.3) SEC Sodium 143 (136-145) mmol/L Potassium 3.7 (3.5-5.1) mmol/L Chloride 106 (98-107) mmol/L Carbon Dioxide 27.7 (21.0-32.0) mmol/L BUN 7 (7.0-18.0) mg/dL Creatinine 0.6 (0.6-1.0) mg/dL Est Cr Clr Drug Dosing 89.70 mL/min Estimated GFR (MDRD) > 60.0 ml/min Glucose 110 H (74-106) mg/dL POC Glucose (60-110) mg/dL Calcium 8.6 (8.5-10.1) mg/dL Total Bilirubin (0.2-1.0) mg/dL AST (15-37) IU/L ALT (14-63) IU/L Alkaline Phosphatase (46-116) U/L Total Protein (6.4-8.2) g/dL Albumin (3.4-5.0) g/dL Globulin (2.6-4.0) g/dL Albumin/Globulin Ratio (0.9-1.6) Urine Color Urine Appearance Urine pH (5.0-8.0) Ur Specific [place] (1.001-1.035) Urine Protein (NEGATIVE) mg/dL Urine Glucose (UA) (NEGATIVE) mg/dL Urine Ketones (NEGATIVE) mg/dL Urine Occult Blood (NEGATIVE) Urine Nitrite (NEGATIVE) Urine Bilirubin (NEGATIVE) Urine Urobilinogen (<2.0) EU/dL Ur Leukocyte Esterase (NEGATIVE) SARS Virus RNA (PCR) NEGATIVE (NEGATIVE) Blood Type Antibody Screen 12/18/19 12/18/19 12/18/19 Range/Units 06:30 08:25 10:46 WBC (4.0-11.0) K/uL RBC (4.30-5.90) M/uL Hgb (12.0-16.0) g/dL Hct (36.0-46.0) % MCV (80.0-98.0) fL MCH (27.0-32.0) pg MCHC (31.0-37.0) g/dL RDW Std Deviation (28.0-62.0) fl RDW Coeff of Thor (11.0-15.0) % Plt Count (150-400) K/uL MPV (7.40-12.00) fL Neut % (Auto) (48.0-80.0) % Lymph % (Auto) (16.0-40.0) % Crawford % (Auto) (0.0-15.0) % Eos % (Auto) (0.0-7.0) % Baso % (Auto) (0.0-1.5) % Neut # (Auto) (1.4-5.7) K/uL Lymph # (Auto) (0.6-2.4) K/uL Crawford # (Auto) (0.0-0.8) K/uL Eos # (Auto) (0.0-0.7) K/uL Baso # (Auto) (0.0-0.1) K/uL Nucleated RBC % /100WBC Nucleated RBCs # K/uL INR APTT (18.6-31.3) SEC Sodium (136-145) mmol/L Potassium (3.5-5.1) mmol/L Chloride (98-107) mmol/L Carbon Dioxide (21.0-32.0) mmol/L BUN (7.0-18.0) mg/dL Creatinine (0.6-1.0) mg/dL Est Cr Clr Drug Dosing mL/min Estimated GFR (MDRD) ml/min Glucose (74-106) mg/dL POC Glucose 101 (60-110) mg/dL Calcium (8.5-10.1) mg/dL Total Bilirubin (0.2-1.0) mg/dL AST (15-37) IU/L ALT (14-63) IU/L Alkaline Phosphatase (46-116) U/L Total Protein (6.4-8.2) g/dL Albumin (3.4-5.0) g/dL Globulin (2.6-4.0) g/dL Albumin/Globulin Ratio (0.9-1.6) Urine Color YELLOW Urine Appearance CLEAR Urine pH 6.0 (5.0-8.0) Ur Specific [place] >= 1.030 (1.001-1.035) Urine Protein NEGATIVE (NEGATIVE) mg/dL Urine Glucose (UA) NEGATIVE (NEGATIVE) mg/dL Urine Ketones NEGATIVE (NEGATIVE) mg/dL Urine Occult Blood NEGATIVE (NEGATIVE) Urine Nitrite NEGATIVE (NEGATIVE) Urine Bilirubin NEGATIVE (NEGATIVE) Urine Urobilinogen 1.0 (<2.0) EU/dL Ur Leukocyte Esterase NEGATIVE (NEGATIVE) SARS Virus RNA (PCR) (NEGATIVE) Blood Type O POSITIVE Antibody Screen NEGATIVE 12/18/19 Range/Units 11:38 WBC (4.0-11.0) K/uL RBC (4.30-5.90) M/uL Hgb (12.0-16.0) g/dL Hct (36.0-46.0) % MCV (80.0-98.0) fL MCH (27.0-32.0) pg MCHC (31.0-37.0) g/dL RDW Std Deviation (28.0-62.0) fl RDW Coeff of Thor (11.0-15.0) % Plt Count (150-400) K/uL MPV (7.40-12.00) fL Neut % (Auto) (48.0-80.0) % Lymph % (Auto) (16.0-40.0) % Crawford % (Auto) (0.0-15.0) % Eos % (Auto) (0.0-7.0) % Baso % (Auto) (0.0-1.5) % Neut # (Auto) (1.4-5.7) K/uL Lymph # (Auto) (0.6-2.4) K/uL Crawford # (Auto) (0.0-0.8) K/uL Eos # (Auto) (0.0-0.7) K/uL Baso # (Auto) (0.0-0.1) K/uL Nucleated RBC % /100WBC Nucleated RBCs # K/uL INR APTT (18.6-31.3) SEC Sodium (136-145) mmol/L Potassium (3.5-5.1) mmol/L Chloride (98-107) mmol/L Carbon Dioxide (21.0-32.0) mmol/L BUN (7.0-18.0) mg/dL Creatinine (0.6-1.0) mg/dL Est Cr Clr Drug Dosing mL/min Estimated GFR (MDRD) ml/min Glucose (74-106) mg/dL POC Glucose 89 (60-110) mg/dL Calcium (8.5-10.1) mg/dL Total Bilirubin (0.2-1.0) mg/dL AST (15-37) IU/L ALT (14-63) IU/L Alkaline Phosphatase (46-116) U/L Total Protein (6.4-8.2) g/dL Albumin (3.4-5.0) g/dL Globulin (2.6-4.0) g/dL Albumin/Globulin Ratio (0.9-1.6) Urine Color Urine Appearance Urine pH (5.0-8.0) Ur Specific [place] (1.001-1.035) Urine Protein (NEGATIVE) mg/dL Urine Glucose (UA) (NEGATIVE) mg/dL Urine Ketones (NEGATIVE) mg/dL Urine Occult Blood (NEGATIVE) Urine Nitrite (NEGATIVE) Urine Bilirubin (NEGATIVE) Urine Urobilinogen (<2.0) EU/dL Ur Leukocyte Esterase (NEGATIVE) SARS Virus RNA (PCR) (NEGATIVE) Blood Type Antibody Screen Med Orders - Current: Current Medications Acetaminophen (Tylenol) 650 mg PO Q4H PRN PRN Reason: Fever Buspirone HCl (Buspar) 7.5 mg PO BID [facility] Last Admin: 12/18/19 08:38 Dose: 7.5 mg Documented by: Gabapentin (Neurontin) 100 mg PO ACBREAKFAST [facility] Last Admin: 12/18/19 07:07 Dose: Not Given Documented by: Gabapentin (Neurontin) 200 mg PO BEDTIME [facility] Last Admin: 12/17/19 21:30 Dose: 200 mg Documented by: Hydrochlorothiazide (Hydrochlorothiazide) 12.5 mg PO DAILY [facility] Last Admin: 12/18/19 08:38 Dose: 12.5 mg Documented by: Hydromorphone HCl (Dilaudid) 1 mg IVPUSH Q2H PRN PRN Reason: Pain Last Admin: 12/18/19 08:29 Dose: 1 mg Documented by: Lactated Ringer's (Ringers, Lactated) 1,000 mls @ 100 mls/hr IV ASDIRECTED [facility] Last Admin: 12/18/19 06:23 Dose: 100 mls/hr Documented by: Insulin Aspart (Novolog) 0 unit SUBCUT TIDAC [facility]; Protocol Last Admin: 12/18/19 11:55 Dose: Not Given Documented by: Lisinopril (Prinivil) 10 mg PO DAILY [facility] Last Admin: 12/18/19 08:37 Dose: 10 mg Documented by: Oxycodone/Acetaminophen (Percocet 325-5 Mg) 1 tab PO Q6H [facility] Last Admin: 12/18/19 10:38 Dose: 1 tab Documented by: Sodium Chloride (Saline Flush) 10 ml FLUSH ASDIRECTED PRN PRN Reason: Keep Vein Open Last Admin: 12/17/19 15:09 Dose: 10 ml Documented by: Sodium Chloride (Saline Flush) 2.5 ml FLUSH ASDIRECTED PRN PRN Reason: Keep Vein Open Last Admin: 12/17/19 15:09 Dose: 2.5 ml Documented by: Discontinued Medications Diphenhydramine HCl (Benadryl) 25 mg IVPUSH ONETIME ONE Stop: 12/17/19 22:34 Last Admin: 12/17/19 22:51 Dose: 25 mg Documented by: Fentanyl (Fentanyl) 100 mcg IVPUSH ONETIME ONE Stop: 12/17/19 16:57 Last Admin: 12/17/19 17:11 Dose: 100 mcg Documented by: Fentanyl (Sublimaze) Confirm Administered Dose 100 mcg .ROUTE .STK-MED ONE Stop: 12/18/19 10:02 Hydromorphone HCl (Dilaudid) 0.5 mg IVPUSH Q2H PRN PRN Reason: Pain Last Admin: 12/17/19 21:25 Dose: 0.5 mg Documented by: Sodium Chloride (Normal Saline) 1,000 mls @ 125 mls/hr IV ASDIRECTED [facility] Last Admin: 12/17/19 15:09 Dose: 125 mls/hr Documented by: Lidocaine HCl (Xylocaine-Mpf 1%) Confirm Administered Dose 5 ml .ROUTE .STK-MED ONE Stop: 12/18/19 10:03 Lorazepam (Ativan) 0.5 mg IVPUSH ONETIME ONE Stop: 12/17/19 22:36 Last Admin: 12/17/19 22:51 Dose: 0.5 mg Documented by: Midazolam HCl (Versed 1 Mg/Ml) Confirm Administered Dose 2 mg .ROUTE .STK-MED ONE Stop: 12/18/19 10:02 Morphine Sulfate (Morphine) 4 mg IVPUSH ONETIME ONE Stop: 12/17/19 15:00 Last Admin: 12/17/19 15:12 Dose: 4 mg Documented by: Morphine Sulfate (Morphine) 2 mg IVPUSH Q2H PRN PRN Reason: Pain Stop: 12/18/19 17:46 Ondansetron HCl (Zofran) 4 mg IVPUSH ONETIME ONE Stop: 12/17/19 15:00 Last Admin: 12/17/19 15:12 Dose: 4 mg Documented by: Ondansetron HCl (Zofran) Confirm Administered Dose 4 mg .ROUTE .STK-MED ONE Stop: 12/18/19 10:03 Propofol (Diprivan 20 Ml) Confirm Administered Dose 400 mg .ROUTE .STK-MED ONE Stop: 12/18/19 10:02 - Exam General: Alert, Oriented, Cooperative HEENT: EOMI Neck: Trachea Midline Lungs: Clear to Auscultation, Normal Respiratory Effort Cardiovascular: Regular Rate, Regular Rhythm GI/Abdominal Exam: Soft, Non-Tender, No Distention Back Exam: Normal Inspection Extremities: No Pedal Edema, Limited Range of Motion (No range of motion at the left hip due to pain. ), Other (sensatation to light touch intact at all extremities. ) Skin: Warm, Dry Neurological: Normal Speech Sepsis Event Note - Evaluation Sepsis Screening Result: No Definite Risk - Focused Exam Vital Signs: Vital Signs Temp Pulse Resp BP BP Pulse Ox 12/18/19 08:37 137/90 12/18/19 07:43 97.6 F 83 18 137/90 95 12/18/19 04:00 98.7 F 84 18 116/68 95 - Problem List Review Problem List Initiated/Reviewed/Updated: Yes - My Orders Last 24 Hours: My Active Orders 12/17/19 Dinner NPO After Midnight [Nothing per Oral After Midnight Diet] [DIET] 12/17/19 17:45 Oxygen Therapy [RC] PRN VTE/DVT Education [RC] PER UNIT ROUTINE Vital Signs [RC] Q4H busPIRone [Buspar] 7.5 mg PO BID Sequential Compression Device [OM.PC] Per Unit Routine 12/17/19 17:46 Antiembolic Devices [RC] PER UNIT ROUTINE 12/17/19 19:40 Acetaminophen [TylenoL] 650 mg PO Q4H PRN 12/17/19 20:15 Lactated Ringers [Ringers, Lactated] 1,000 ml IV ASDIRECTED 12/17/19 21:00 Gabapentin [Neurontin] 200 mg PO BEDTIME 12/18/19 07:30 Gabapentin [Neurontin] 100 mg PO ACBREAKFAST Insulin Aspart [NovoLOG] See Protocol SUBCUT TIDAC 12/18/19 09:00 hydroCHLOROthiazide 12.5 mg PO DAILY lisinopriL [Prinivil] 10 mg PO DAILY - Plan Plan:: Assessment/Plan: Patient currently NPO after midnight prior to surgery, Dilaudid increased to 1mg Q2HR PRN and Percocet 5mg/325mg Q6HR added for better pain control, Sliding Scale Insulin (Low Dose), 100ml/hr LR. Will adjust treatment plan if necessary based on recommendations from orthopedic surgery.
[2019-12-18] MEDS ORDERED: Bupivacaine 0.5% 10 ML SDV ONE (12:42)
[2019-12-18] MEDS ORDERED: ceFAZolin/Dextrose,Iso-Osmotic 2 GM/50 ML Duplex Bag IV ONE (13:24)
[2019-12-18] MEDS ORDERED: Phenylephrine 1% 10 MG/ML SDV ONE ×2 (13:32→14:21)
[2019-12-18] MEDS ORDERED: ePHEDrine 50 MG/ML SDV ONE (13:55)
--- NOTE | 2019-12-18 14:08 | PCM.SN.2 ---
- Free Text/Narrative Note: Spinal done with a sterile technique. Back prepped and draped with povidone iodine, 1% lidocaine 3 ml injected at l3-l4, and 2 ml injected at l2-l3. 3 attempts total. L3-L4, and L2-L3 level. 25 gauge pencan needle +csf, no heme. no pain or paresthesias with injection. 0.5% bupivacaine 2.5 ml given (isobaric) patient tolerated the procedure well and was able to verbalize throughout the entire procedure. T8 level.
[2019-12-18] MEDS ORDERED: Sodium Chloride 0.9% 0 ML ONE (14:24)
[2019-12-18] MEDS ORDERED: Albuterol 0.083% 2.5 MG/3 ML Neb Soln NEB PRN (14:37)
[2019-12-18] MEDS ORDERED: 50% Dextrose in Water 50 ML Syringe IVPUSH PRN (14:37)
[2019-12-18] MEDS ORDERED: Naloxone 0.4 MG/ML Syringe IVPUSH PRN (14:37)
[2019-12-18] MEDS ORDERED: Atropine 0.1 MG/ML 10 ML Syringe IVPUSH PRN ×2 (14:37)
[2019-12-18] MEDS ORDERED: EPINEPHrine 1:10,000 1 MG/10 ML Syringe IVPUSH PRN (14:37)
[2019-12-18] MEDS ORDERED: fentaNYL 100 MCG/2 ML SDV IVPUSH PRN (14:37)
[2019-12-18] MEDS ORDERED: Ondansetron 4 MG/2 ML SDV IVPUSH PRN (14:38)
[2019-12-18] MEDS ORDERED: HYDROmorphone 2 MG/ML Syringe IVPUSH PRN (14:47)
[2019-12-18] MEDS ORDERED: Ketorolac 30 MG/ML SDV ONE (14:58)
--- NOTE | 2019-12-18 15:12 | PCM.OPNOTE ---
- General Post-Op/Procedure Note Date of Surgery/Procedure: 12/18/19 Operative Procedure(s): Intramedullary nailing of left reverse oblique intertrochanteric hip fracture Findings: Left reverse oblique intertrochanteric hip fracture with near anatomic reduction with traction Pre Op Diagnosis: Left reverse oblique intertrochanteric hip fracture Post-Op Diagnosis: Left reverse oblique intertrochanteric hip fracture Anesthesia Technique: Spinal Primary Surgeon: Vernon Ceron Concrete Technician: Melissa Sol Concrete Technician Was Necessary: Patient positioning and fracture reduction Pathology: None EBL in mLs: 100 Complications: None Free Text/Narrative:: Patient was walking her dog yesterday when she slipped and fell. She was seen in the emergency room and noted to have a left reverse oblique intertrochanteric hip fracture. She was visited to the hospital service because of her diabetes. She was medically cleared for surgery. Because of the unstable fracture pattern, I recommended an intramedullary nail retreatment per the [employer] clinical practice guideline. The risks and benefits of surgery were discussed with the patient. Patient consented to proceed with surgery. Patient was taken to the operating room. After adequate spinal anesthesia, she was placed in the supine position on the fracture table. Both feet were placed in boot traction. With longitudinal traction, the fracture was reduced. C arm was used to confirm near anatomic reduction of the fracture with traction. A small incision was made in the buttock in line with the femoral shaft. Skin was incised with a scalpel. Subcutaneous tissue were incised with cautery. Cohen scissors were used to split the fascia through the gluteus demetrice. A guide pin was placed in the tip of the greater trochanter and inserted into the intramedullary canal. The pin was adjusted with C arm until was in appropriate position. Starting reamer was used to open the proximal femur. Guidewire was placed into the distal femur. The guidewire was measured to 360 mm in length. We sequentially reamed to 15 mm diameter through the intramedullary canal. A 13 mm diameter [place] T2 reconstruction nail was inserted to the appropriate dep th. Guide pins were placed in appropriate position with C arm guidance. The inferior guidepin was then removed and the reconstruction screw drilled and the length measured. A 90 mm screw was inserted in the inferior reconstruction screw position. The superior reconstruction screw was drilled and measured to 80 degrees and the screw inserted. The insertion guide was removed and appropriate C arm views noted good positioning of the implants and maintenance of the fracture reduction. A distal interlocking screw was placed with a freehand technique. Skin was incised with a scalpel. Sub cutaneous tissue was spread with a hemostat. Freehand technique was used to drill the hole through the interlocking hole. Screw was measured and inserted. C arm confirmedgood position of the distal in terlocking screw. Wounds were then irrigated. Deep closure used interrupted #1 Vicryl suture. Subcutaneous tissue was closed with interrupted 2-0 Vicryl sutures. Running Monocryl was used for subcuticular closure with Steri-Strips. Sterile dressings were applied and the patient was accompanied to the recovery room in stable condition. Pain medication: Toradol, acetaminophen, opioids as needed Venous thromboembolism prophylaxis: Enteric-coated aspirin 325 mg daily for 9 months Prophylactic antibiotics: Ancef 1 g x 2 doses Restrictions: Patient is weightbearing as tolerated on her left lower extremity with assistive device as needed. She has no hip dislocation precautions. Activities as tolerated without restrictions. Intake & Output 12/17/19 12/18/19 12/18/19 22:59 06:59 14:59 Intake Total 1115 Output Total 1400 Balance -285
[2019-12-18] MEDS ORDERED: diphenhydrAMINE 25 MG Cap PO PRN (15:30)
[2019-12-18] MEDS ORDERED: Bisacodyl 10 MG Supp RECTAL PRN (15:30)
[2019-12-18] MEDS ORDERED: Docusate Sodium 100 MG Cap PO PRN (15:30)
[2019-12-18] MEDS ORDERED: Aluminum Hydroxide/Magnesium Hydroxide/Simethicone Susp 30 ML Cup PO PRN (15:30)
--- NOTE | 2019-12-18 16:08 | PCM.POSTAN ---
POST ANESTHESIA ASSESSMENT - MENTAL STATUS Mental Status: Alert, Oriented - VITAL SIGNS Vital Signs: Last Vital Signs Temp 37.1 C 12/18/19 15:27 Pulse 77 12/18/19 15:59 Resp 10 L 12/18/19 15:59 BP 120/72 12/18/19 15:59 Pulse Ox 93 L 12/18/19 15:59 - RESPIRATORY Respiratory Status: Respiratory Rate WNL, Airway Patent, O2 Saturation Stable - CARDIOVASCULAR CV Status: Pulse Rate WNL, Blood Pressure Stable - GASTROINTESTINAL GI Status: No Symptoms - PAIN Pain Score: 0 - POST OP HYDRATION Hydration Status: Adequate & Stable - OBSERVATIONS Free Text/Narrative:: Glucose = 90. Patient tolerated the procedure well. There were no apparent anesthetic complications at this time. Discharge to floor.
[2019-12-18] MEDS: Ketorolac 30 MG/ML SDV IVPUSH SCH ×2 (17:43→22:22)
[2019-12-18] MEDS ORDERED: Aspirin 325 MG Tab PO SCH (19:00)
[2019-12-18] MEDS: ceFAZolin 2 GM in Premix Bag 1 BAG IV SCH (21:28)
[2019-12-19] MEDS: Lactated Ringers 1,000 ML IV SCH (01:58)
[2019-12-19 07:00] LABS: BLOOD UREA NITROGEN,BUN 6 mg/dL (7.0-18.0); CARBON DIOXIDE,CO2 30.7 mmol/L (21.0-32.0); CHLORIDE,CL 103 mmol/L (98-107); GLUCOSE RANDOM 136 mg/dL (74-106); POTASSIUM,K 3.9 mmol/L (3.5-5.1); SODIUM,NA 141 mmol/L (136-145)
[2019-12-19] MEDS: Insulin Aspart 100 Units/ML 3 ML Pen SUBCUT SCH ×3 (07:05→17:31)
--- NOTE | 2019-12-19 08:00 | PCM48HPAN ---
Post Anesthesia Note - EVALUATION WITHIN 48HRS OF ANESTHETIC Vital Signs in Normal Range: Yes Patient Participated in Evaluation: Yes Respiratory Function Stable: Yes Airway Patent: Yes Cardiovascular Function Stable: Yes Hydration Status Stable: Yes Pain Control Satisfactory: Yes (Some soreness and sweating.) Nausea and Vomiting Control Satisfactory: Yes Mental Status Recovered: Yes Vital Signs: Last Vital Signs Temp 36.5 C 12/19/19 04:00 Pulse 89 12/19/19 04:00 Resp 18 12/19/19 04:00 BP 140/82 12/19/19 04:00 Pulse Ox 93 L 12/19/19 04:00 - COMMENTS/OBSERVATIONS Free Text/Narrative:: Doing well. Some general soreness. No problems noted at present.
[2019-12-19] MEDS: Aspirin 325 MG Tab PO SCH (08:37)
[2019-12-19] MEDS: Lisinopril 10 MG Tab PO SCH (08:38)
[2019-12-19] MEDS: Hydrochlorothiazide 12.5 MG Cap PO SCH (08:38)
[2019-12-19] MEDS: Gabapentin 100 MG Cap PO SCH (08:38)
[2019-12-19] MEDS: busPIRone 5 MG Tab PO SCH ×2 (08:39→20:34)
[2019-12-19] MEDS: Polyethylene Glycol 3350 Powder 17 GM Packet PO SCH (08:39)
--- NOTE | 2019-12-19 08:42 | PCM.SURGPN ---
- General Info Date of Service: 12/19/19 (0815) Date of Surgery/Procedure: 12/18/19 (s/p IM nail Left hip fracture) POD#: 1 Admission Diagnosis/Problem: Hip fracture requiring operative repair Functional Status: Reports: Pain Controlled (Inge reports having minimal pain this morning), Tolerating Diet. Denies: Ambulating (she had not been OOB last evening.), Urinating (hanson removed this morning) - Review of Systems General: Reports: No Symptoms Pulmonary: Denies: No Symptoms Cardiovascular: Denies: No Symptoms, Edema Gastrointestinal: Denies: Nausea, Vomiting Musculoskeletal: Reports: Joint Pain (minimal hip pain) Neurological: Reports: No Symptoms Psychiatric: Reports: No Symptoms - Patient Data Vitals - Most Recent: Last Vital Signs Temp 36.5 C 12/19/19 04:00 Pulse 89 12/19/19 04:00 Resp 18 12/19/19 04:00 BP 140/82 12/19/19 04:00 Pulse Ox 93 L 12/19/19 04:00 Weight - Most Recent: 102.512 kg I&O - Last 24 Hours: Intake & Output 12/18/19 12/19/19 12/19/19 22:59 06:59 14:59 Intake Total 0958 067 1785 Output Total 1400 1550 Balance 550 -1070 1229 Lab Results Last 24 Hrs: Laboratory Results - last 24 hr 12/18/19 12/18/19 12/18/19 Range/Units 08:25 10:46 11:38 WBC (4.0-11.0) K/uL RBC (4.30-5.90) M/uL Hgb (12.0-16.0) g/dL Hct (36.0-46.0) % MCV (80.0-98.0) fL MCH (27.0-32.0) pg MCHC (31.0-37.0) g/dL RDW Std Deviation (28.0-62.0) fl RDW Coeff of Thor (11.0-15.0) % Plt Count (150-400) K/uL MPV (7.40-12.00) fL Neut % (Auto) (48.0-80.0) % Lymph % (Auto) (16.0-40.0) % [place] % (Auto) (0.0-15.0) % Eos % (Auto) (0.0-7.0) % Baso % (Auto) (0.0-1.5) % Neut # (Auto) (1.4-5.7) K/uL Lymph # (Auto) (0.6-2.4) K/uL [place] # (Auto) (0.0-0.8) K/uL Eos # (Auto) (0.0-0.7) K/uL Baso # (Auto) (0.0-0.1) K/uL Nucleated RBC % /100WBC Nucleated RBCs # K/uL Sodium (136-145) mmol/L Potassium (3.5-5.1) mmol/L Chloride (98-107) mmol/L Carbon Dioxide (21.0-32.0) mmol/L BUN (7.0-18.0) mg/dL Creatinine (0.6-1.0) mg/dL Est Cr Clr Drug Dosing mL/min Estimated GFR (MDRD) ml/min Glucose (74-106) mg/dL POC Glucose 89 (60-110) mg/dL Calcium (8.5-10.1) mg/dL Urine Color YELLOW Urine Appearance CLEAR Urine pH 6.0 (5.0-8.0) Ur Specific [place] >= 1.030 (1.001-1.035) Urine Protein NEGATIVE (NEGATIVE) mg/dL Urine Glucose (UA) NEGATIVE (NEGATIVE) mg/dL Urine Ketones NEGATIVE (NEGATIVE) mg/dL Urine Occult Blood NEGATIVE (NEGATIVE) Urine Nitrite NEGATIVE (NEGATIVE) Urine Bilirubin NEGATIVE (NEGATIVE) Urine Urobilinogen 1.0 (<2.0) EU/dL Ur Leukocyte Esterase NEGATIVE (NEGATIVE) Blood Type O POSITIVE Antibody Screen NEGATIVE 12/18/19 12/18/19 12/19/19 Range/Units 15:47 17:42 05:50 WBC 6.94 (4.0-11.0) K/uL RBC 4.00 L (4.30-5.90) M/uL Hgb 11.8 L (12.0-16.0) g/dL Hct 35.1 L (36.0-46.0) % MCV 87.8 (80.0-98.0) fL MCH 29.5 (27.0-32.0) pg MCHC 33.6 (31.0-37.0) g/dL RDW Std Deviation 40.4 (28.0-62.0) fl RDW Coeff of Thor 13 (11.0-15.0) % Plt Count 201 (150-400) K/uL MPV 9.40 (7.40-12.00) fL Neut % (Auto) 73.8 (48.0-80.0) % Lymph % (Auto) 19.6 (16.0-40.0) % [place] % (Auto) 5.9 (0.0-15.0) % Eos % (Auto) 0.6 (0.0-7.0) % Baso % (Auto) 0.1 (0.0-1.5) % Neut # (Auto) 5.1 (1.4-5.7) K/uL Lymph # (Auto) 1.4 (0.6-2.4) K/uL [place] # (Auto) 0.4 (0.0-0.8) K/uL Eos # (Auto) 0.0 (0.0-0.7) K/uL Baso # (Auto) 0.0 (0.0-0.1) K/uL Nucleated RBC % 0.0 /100WBC Nucleated RBCs # 0 K/uL Sodium (136-145) mmol/L Potassium (3.5-5.1) mmol/L Chloride (98-107) mmol/L Carbon Dioxide (21.0-32.0) mmol/L BUN (7.0-18.0) mg/dL Creatinine (0.6-1.0) mg/dL Est Cr Clr Drug Dosing mL/min Estimated GFR (MDRD) ml/min Glucose (74-106) mg/dL POC Glucose 90 105 (60-110) mg/dL Calcium (8.5-10.1) mg/dL Urine Color Urine Appearance Urine pH (5.0-8.0) Ur Specific [place] (1.001-1.035) Urine Protein (NEGATIVE) mg/dL Urine Glucose (UA) (NEGATIVE) mg/dL Urine Ketones (NEGATIVE) mg/dL Urine Occult Blood (NEGATIVE) Urine Nitrite (NEGATIVE) Urine Bilirubin (NEGATIVE) Urine Urobilinogen (<2.0) EU/dL Ur Leukocyte Esterase (NEGATIVE) Blood Type Antibody Screen 12/19/19 12/19/19 Range/Units 06:27 06:28 WBC (4.0-11.0) K/uL RBC (4.30-5.90) M/uL Hgb (12.0-16.0) g/dL Hct (36.0-46.0) % MCV (80.0-98.0) fL MCH (27.0-32.0) pg MCHC (31.0-37.0) g/dL RDW Std Deviation (28.0-62.0) fl RDW Coeff of Thor (11.0-15.0) % Plt Count (150-400) K/uL MPV (7.40-12.00) fL Neut % (Auto) (48.0-80.0) % Lymph % (Auto) (16.0-40.0) % [place] % (Auto) (0.0-15.0) % Eos % (Auto) (0.0-7.0) % Baso % (Auto) (0.0-1.5) % Neut # (Auto) (1.4-5.7) K/uL Lymph # (Auto) (0.6-2.4) K/uL [place] # (Auto) (0.0-0.8) K/uL Eos # (Auto) (0.0-0.7) K/uL Baso # (Auto) (0.0-0.1) K/uL Nucleated RBC % /100WBC Nucleated RBCs # K/uL Sodium 141 (136-145) mmol/L Potassium 3.9 (3.5-5.1) mmol/L Chloride 103 (98-107) mmol/L Carbon Dioxide 30.7 (21.0-32.0) mmol/L BUN 6 L (7.0-18.0) mg/dL Creatinine 0.5 L (0.6-1.0) mg/dL Est Cr Clr Drug Dosing 107.64 mL/min Estimated GFR (MDRD) > 60.0 ml/min Glucose 136 H (74-106) mg/dL POC Glucose 138 H (60-110) mg/dL Calcium 8.5 (8.5-10.1) mg/dL Urine Color Urine Appearance Urine pH (5.0-8.0) Ur Specific [place] (1.001-1.035) Urine Protein (NEGATIVE) mg/dL Urine Glucose (UA) (NEGATIVE) mg/dL Urine Ketones (NEGATIVE) mg/dL Urine Occult Blood (NEGATIVE) Urine Nitrite (NEGATIVE) Urine Bilirubin (NEGATIVE) Urine Urobilinogen (<2.0) EU/dL Ur Leukocyte Esterase (NEGATIVE) Blood Type Antibody Screen Med Orders - Current: Current Medications Acetaminophen (Tylenol) 650 mg PO Q4H PRN PRN Reason: Fever Al Hydroxide/Mg Hydroxide (Mag-Al Plus) 30 ml PO Q4H PRN PRN Reason: Indigestion Albuterol (Proventil Neb Soln) 2.5 mg NEB ONETIME PRN PRN Reason: Wheezing Aspirin (Aspirin) 325 mg PO DAILY [facility] Atropine Sulfate (Atropine 0.1 Mg/Ml) 0.5 mg IVPUSH ASDIRECTED PRN PRN Reason: Hypo-perfusion Atropine Sulfate (Atropine 0.1 Mg/Ml) 1 mg IVPUSH ASDIRECTED PRN PRN Reason: Hypo-Perfusion Bisacodyl (Dulcolax) 10 mg RECTAL DAILY PRN PRN Reason: Constipation Buspirone HCl (Buspar) 7.5 mg PO BID [facility] Last Admin: 12/18/19 21:27 Dose: 7.5 mg Documented by: Dextrose/Water (Dextrose 50% In Water) 50 ml IVPUSH ASDIRECTED PRN PRN Reason: Hypoglycemia Diphenhydramine HCl (Benadryl) 25 - 50 mg PO Q6H PRN PRN Reason: Itching Docusate Sodium (Colace) 100 mg PO BID PRN PRN Reason: Constipation Epinephrine HCl (Epinephrine 1:10,000) 1 mg IVPUSH ASDIRECTED PRN PRN Reason: ACLS Guidelines Fentanyl (Sublimaze) 50 mcg IVPUSH Q5M PRN PRN Reason: Pain Gabapentin (Neurontin) 100 mg PO ACBREAKFAST [facility] Last Admin: 12/18/19 07:07 Dose: Not Given Documented by: Gabapentin (Neurontin) 200 mg PO BEDTIME [facility] Last Admin: 12/18/19 21:27 Dose: 200 mg Documented by: Hydrochlorothiazide (Hydrochlorothiazide) 12.5 mg PO DAILY [facility] Last Admin: 12/18/19 08:38 Dose: 12.5 mg Documented by: Hydromorphone HCl (Dilaudid) 1 mg IVPUSH Q2H PRN PRN Reason: Pain Last Admin: 12/18/19 08:29 Dose: 1 mg Documented by: Hydromorphone HCl (Dilaudid) 0.25 mg IVPUSH .Q5MIN PRN PRN Reason: Pain (severe 7-10) Stop: 12/19/19 14:47 Lactated Ringer's (Ringers, Lactated) 1,000 mls @ 100 mls/hr IV ASDIRECTED [facility] Last Admin: 12/19/19 01:58 Dose: 100 mls/hr Documented by: Ibuprofen (Motrin) 800 mg PO Q8H [facility] Insulin Aspart (Novolog) 0 unit SUBCUT TIDAC [facility]; Protocol Last Admin: 12/19/19 07:05 Dose: Not Given Documented by: Lisinopril (Prinivil) 10 mg PO DAILY [facility] Last Admin: 12/18/19 08:37 Dose: 10 mg Documented by: Naloxone HCl (Narcan) 0.1 mg IVPUSH ASDIRECTED PRN PRN Reason: Respiratory Depression Ondansetron HCl (Zofran) 4 mg IVPUSH ONETIME PRN PRN Reason: Nausea or vomiting Oxycodone HCl (Oxycodone) 5 - 10 mg PO Q4H PRN PRN Reason: Pain Polyethylene Glycol (Miralax) 17 gm PO DAILY [facility] Sodium Chloride (Saline Flush) 10 ml FLUSH ASDIRECTED PRN PRN Reason: Keep Vein Open Last Admin: 12/17/19 15:09 Dose: 10 ml Documented by: Sodium Chloride (Saline Flush) 2.5 ml FLUSH ASDIRECTED PRN PRN Reason: Keep Vein Open Last Admin: 12/17/19 15:09 Dose: 2.5 ml Documented by: Discontinued Medications Aspirin (Aspirin) 325 mg PO DAILY [facility] Aspirin (Aspirin) 325 mg PO DAILY [facility] Last Admin: 12/18/19 20:19 Dose: Not Given Documented by: Bupivacaine HCl (Sensorcaine-Mpf 0.5%) Confirm Administered Dose 10 ml .ROUTE .STK-MED ONE Stop: 12/18/19 12:43 Cefazolin Sodium/Dextrose (Ancef) Confirm Administered Dose 2 gm IV .STK-MED ONE Stop: 12/18/19 13:25 Diphenhydramine HCl (Benadryl) 25 mg IVPUSH ONETIME ONE Stop: 12/17/19 22:34 Last Admin: 12/17/19 22:51 Dose: 25 mg Documented by: Ephedrine Sulfate (Ephedrine Sulfate) Confirm Administered Dose 50 mg .ROUTE .STK-MED ONE Stop: 12/18/19 13:56 Fentanyl (Fentanyl) 100 mcg IVPUSH ONETIME ONE Stop: 12/17/19 16:57 Last Admin: 12/17/19 17:11 Dose: 100 mcg Documented by: Fentanyl (Sublimaze) Confirm Administered Dose 100 mcg .ROUTE .STK-MED ONE Stop: 12/18/19 10:02 Hydromorphone HCl (Dilaudid) 0.5 mg IVPUSH Q2H PRN PRN Reason: Pain Last Admin: 12/17/19 21:25 Dose: 0.5 mg Documented by: Sodium Chloride (Normal Saline) 1,000 mls @ 125 mls/hr IV ASDIRECTED [facility] Last Admin: 12/17/19 15:09 Dose: 125 mls/hr Documented by: Acetaminophen (Ofirmev) Confirm Administered Dose 100 mls @ as directed .ROUTE .STK-MED ONE Stop: 12/18/19 12:43 Sodium Chloride (Normal Saline) Confirm Administered Dose 20 mls @ as directed .ROUTE .STK-MED ONE Stop: 12/18/19 14:25 Cefazolin Sodium/Dextrose 2 gm (/ Premix) 50 mls @ 100 mls/hr IV Q8H [facility] Stop: 12/19/19 06:29 Last Admin: 12/18/19 21:28 Dose: 100 mls/hr Documented by: Ketorolac Tromethamine (Toradol) Confirm Administered Dose 30 mg .ROUTE .STK-MED ONE Stop: 12/18/19 14:59 Ketorolac Tromethamine (Toradol) 30 mg IVPUSH Q6H [facility] Stop: 12/19/19 05:00 Last Admin: 12/18/19 22:22 Dose: 30 mg Documented by: Lidocaine HCl (Xylocaine-Mpf 1%) Confirm Administered Dose 5 ml .ROUTE .STK-MED ONE Stop: 12/18/19 10:03 Lorazepam (Ativan) 0.5 mg IVPUSH ONETIME ONE Stop: 12/17/19 22:36 Last Admin: 12/17/19 22:51 Dose: 0.5 mg Documented by: Midazolam HCl (Versed 1 Mg/Ml) Confirm Administered Dose 2 mg .ROUTE .STK-MED ONE Stop: 12/18/19 10:02 Midazolam HCl (Versed 1 Mg/Ml) Confirm Administered Dose 2 mg .ROUTE .STK-MED ONE Stop: 12/18/19 12:59 Morphine Sulfate (Morphine) 4 mg IVPUSH ONETIME ONE Stop: 12/17/19 15:00 Last Admin: 12/17/19 15:12 Dose: 4 mg Documented by: Morphine Sulfate (Morphine) 2 mg IVPUSH Q2H PRN PRN Reason: Pain Stop: 12/18/19 17:46 Ondansetron HCl (Zofran) 4 mg IVPUSH ONETIME ONE Stop: 12/17/19 15:00 Last Admin: 12/17/19 15:12 Dose: 4 mg Documented by: Ondansetron HCl (Zofran) Confirm Administered Dose 4 mg .ROUTE .STK-MED ONE Stop: 12/18/19 10:03 Oxycodone/Acetaminophen (Percocet 325-5 Mg) 1 tab PO Q6H IAN Last Admin: 12/18/19 10:38 Dose: 1 tab Documented by: Phenylephrine HCl (Napoleon-Synephrine) Confirm Administered Dose 10 mg .ROUTE .STK- MED ONE Stop: 12/18/19 13:33 Phenylephrine HCl (Napoleon-Synephrine) Confirm Administered Dose 10 mg .ROUTE .STK- MED ONE Stop: 12/18/19 14:22 Propofol (Diprivan 20 Ml) Confirm Administered Dose 400 mg .ROUTE .STK-MED ONE Stop: 12/18/19 10:02 Propofol (Diprivan 20 Ml) Confirm Administered Dose 400 mg .ROUTE .STK-MED ONE Stop: 12/18/19 13:44 Propofol (Diprivan 20 Ml) Confirm Administered Dose 200 mg .ROUTE .STK-MED ONE Stop: 12/18/19 14:34 Propofol (Diprivan 20 Ml) Confirm Administered Dose 200 mg .ROUTE .STK-MED ONE Stop: 12/18/19 14:34 - Exam Wound/Incisions: Dressing Dry and Intact (3 dressing to left hip CDI with no shadows of drainage) Quality Assessment: DVT Prophylaxis (ASA 325mg). No: Urine Catheter (removed this morning) General: Alert, Oriented, Cooperative, No Acute Distress Lungs: Normal Respiratory Effort Extremities: No Pedal Edema, Normal Capillary Refill, Other (sensation grossly intact to LLE) Skin: Warm, Dry Neurological: Normal Speech Psy/Mental Status: Alert, Normal Affect, Normal Mood Sepsis Event Note - Evaluation Sepsis Screening Result: No Definite Risk - Focused Exam Vital Signs: Vital Signs Temp Pulse Resp BP Pulse Ox 12/19/19 04:00 36.5 C 89 18 140/82 93 L 12/19/19 00:00 36.8 C 88 18 128/72 93 L - Problem List Review Problem List Initiated/Reviewed/Updated: Yes - My Orders Last 24 Hours: Active Orders 24 hr Category Date Time Status Patient Status [ADT] Stat ADT 12/18/19 10:19 Active Blood Glucose Check, Bedside [RC] ONETIME Care 12/18/19 14:38 Active Blood Glucose Check, Bedside [RC] PRN Care 12/18/19 14:37 Active Blood Glucose Check, Bedside [RC] TIDAC Care 12/19/19 07:00 Active Communication Order [RC] PRN Care 12/18/19 15:31 Active Cooling Warming Measures [RC] ASDIRECTED Care 12/18/19 15:33 Active Neurovascular Check [RC] Q2HR Care 12/18/19 15:31 Active Notify Provider Consults [RC] ASDIRECTED Care 12/18/19 10:14 Active Notify Provider Vital Signs [RC] ASDIRECTED Care 12/18/19 14:37 Active Oxygen Therapy [RC] PRN Care 12/18/19 14:37 Active RT Aerosol Therapy [RC] ASDIRECTED Care 12/18/19 14:37 Active RT Aerosol Therapy [RC] ASDIRECTED Care 12/18/19 14:37 Active RT Incentive Spirometry [RC] Q1HWA Care 12/18/19 15:31 Active Urinary Catheter Removal [RC] ASDIRECTED Care 12/19/19 15:31 Active Vital Signs [RC] Q5M Care 12/18/19 14:37 Active Wound Care [RC] DAILY Care 12/18/19 15:31 Active Consult to Physician [CONS] Routine Cons 12/18/19 10:13 Active PT Evaluation and Treatment [CONS] Routine Cons 12/18/19 15:31 Active [employer] Diet [DIET] Diet 12/18/19 Dinner Active HEMOGLOBIN/HEMATOCRIT,HH [HEME] DAILY Lab 12/20/19 06:00 Ordered Albuterol [Proventil Neb Soln] Med 12/18/19 14:37 Active 2.5 mg NEB ONETIME PRN Alum Hydrox/Mag Hydrox/Simeth [Mag-Al Plus] Med 12/18/19 15:30 Active 30 ml PO Q4H PRN Aspirin Med 12/19/19 09:00 Active 325 mg PO DAILY Atropine [Atropine 0.1 MG/ML] Med 12/18/19 14:37 Active 0.5 mg IVPUSH ASDIRECTED PRN Atropine [Atropine 0.1 MG/ML] Med 12/18/19 14:37 Active 1 mg IVPUSH ASDIRECTED PRN Dextrose 50% in Water Med 12/18/19 14:37 Active 50 ml IVPUSH ASDIRECTED PRN Docusate Sodium [Colace] Med 12/18/19 15:30 Active 100 mg PO BID PRN EPINEPHrine [EPINEPHrine 1:10,000] Med 12/18/19 14:37 Active 1 mg IVPUSH ASDIRECTED PRN HYDROmorphone [Dilaudid] Med 12/18/19 14:47 Active 0.25 mg IVPUSH .Q5MIN PRN Ibuprofen [Motrin] Med 12/19/19 09:00 Ordered 800 mg PO Q8H Naloxone [Narcan] Med 12/18/19 14:37 Active 0.1 mg IVPUSH ASDIRECTED PRN Ondansetron [Zofran] Med 12/18/19 14:38 Active 4 mg IVPUSH ONETIME PRN bisacodyL [Dulcolax] Med 12/18/19 15:30 Active 10 mg RECTAL DAILY PRN diphenhydrAMINE [Benadryl] Med 12/18/19 15:30 Active 25 - 50 mg PO Q6H PRN fentaNYL [Sublimaze] Med 12/18/19 14:37 Active 50 mcg IVPUSH Q5M PRN hydroCHLOROthiazide Med 12/18/19 09:00 Active 12.5 mg PO DAILY lisinopriL [Prinivil] Med 12/18/19 09:00 Active 10 mg PO DAILY oxyCODONE Med 12/18/19 15:30 Active 5 - 10 mg PO Q4H PRN polyethylene glycoL 3350 [MiraLAX] Med 12/19/19 09:00 Active 17 gm PO DAILY Ice Therapy [OM.PC] Routine Oth 12/18/19 15:31 Ordered Resuscitation Status Routine Resus Stat 12/18/19 10:17 Ordered Medication Orders Acetaminophen (Tylenol) 650 mg PO Q4H PRN PRN Reason: Fever Al Hydroxide/Mg Hydroxide (Mag-Al Plus) 30 ml PO Q4H PRN PRN Reason: Indigestion Albuterol (Proventil Neb Soln) 2.5 mg NEB ONETIME PRN PRN Reason: Wheezing Aspirin (Aspirin) 325 mg PO DAILY [facility] Atropine Sulfate (Atropine 0.1 Mg/Ml) 0.5 mg IVPUSH ASDIRECTED PRN PRN Reason: Hypo-perfusion Atropine Sulfate (Atropine 0.1 Mg/Ml) 1 mg IVPUSH ASDIRECTED PRN PRN Reason: Hypo-Perfusion Bisacodyl (Dulcolax) 10 mg RECTAL DAILY PRN PRN Reason: Constipation Buspirone HCl (Buspar) 7.5 mg PO BID [facility] Last Admin: 12/18/19 21:27 Dose: 7.5 mg Documented by: Admin: 12/18/19 08:38 Dose: 7.5 mg Documented by: Admin: 12/17/19 21:30 Dose: 7.5 mg Documented by: Admin: 12/17/19 19:01 Dose: 7.5 mg Documented by: PROFLUC Dextrose/Water (Dextrose 50% In Water) 50 ml IVPUSH ASDIRECTED PRN PRN Reason: Hypoglycemia Diphenhydramine HCl (Benadryl) 25 - 50 mg PO Q6H PRN PRN Reason: Itching Docusate Sodium (Colace) 100 mg PO BID PRN PRN Reason: Constipation Epinephrine HCl (Epinephrine 1:10,000) 1 mg IVPUSH ASDIRECTED PRN PRN Reason: ACLS Guidelines Fentanyl (Sublimaze) 50 mcg IVPUSH Q5M PRN PRN Reason: Pain Gabapentin (Neurontin) 100 mg PO ACBREAKFAST [facility] Last Admin: 12/18/19 07:07 Dose: Not Given Documented by: TASNEEM Gabapentin (Neurontin) 200 mg PO BEDTIME [facility] Last Admin: 12/18/19 21:27 Dose: 200 mg Documented by: Admin: 12/17/19 21:30 Dose: 200 mg Documented by: TASNEEM Hydrochlorothiazide (Hydrochlorothiazide) 12.5 mg PO DAILY [facility] Last Admin: 12/18/19 08:38 Dose: 12.5 mg Documented by: LO Hydromorphone HCl (Dilaudid) 1 mg IVPUSH Q2H PRN PRN Reason: Pain Last Admin: 12/18/19 08:29 Dose: 1 mg Documented by: LO Hydromorphone HCl (Dilaudid) 0.25 mg IVPUSH .Q5MIN PRN PRN Reason: Pain (severe 7-10) Stop: 12/19/19 14:47 Lactated Ringer's (Ringers, Lactated) 1,000 mls @ 100 mls/hr IV ASDIRECTED [facility] Last Admin: 12/19/19 01:58 Dose: 100 mls/hr Documented by: Infusion: 12/19/19 01:58 Dose: 100 mls/hr Documented by: Admin: 12/18/19 16:33 Dose: 100 mls/hr Documented by: Infusion: 12/18/19 16:23 Dose: 100 mls/hr Documented by: Admin: 12/18/19 06:23 Dose: 100 mls/hr Documented by: Infusion: 12/18/19 06:23 Dose: 100 mls/hr Documented by: Admin: 12/17/19 21:33 Dose: 100 mls/hr Documented by: TASNEEM Ibuprofen (Motrin) 800 mg PO Q8H [facility] Insulin Aspart (Novolog) 0 unit SUBCUT TIDAC [facility]; Protocol Last Admin: 12/19/19 07:05 Dose: Not Given Documented by: Admin: 12/18/19 17:44 Dose: Not Given Documented by: Admin: 12/18/19 11:55 Dose: Not Given Documented by: Admin: 12/18/19 07:08 Dose: Not Given Documented by: TASNEEM Lisinopril (Prinivil) 10 mg PO DAILY [facility] Last Admin: 12/18/19 08:37 Dose: 10 mg Documented by: LO Naloxone HCl (Narcan) 0.1 mg IVPUSH ASDIRECTED PRN PRN Reason: Respiratory Depression Ondansetron HCl (Zofran) 4 mg IVPUSH ONETIME PRN PRN Reason: Nausea or vomiting Oxycodone HCl (Oxycodone) 5 - 10 mg PO Q4H PRN PRN Reason: Pain Polyethylene Glycol (Miralax) 17 gm PO DAILY IAN Sodium Chloride (Saline Flush) 10 ml FLUSH ASDIRECTED PRN PRN Reason: Keep Vein Open Last Admin: 12/17/19 15:09 Dose: 10 ml Documented by: NAYA Sodium Chloride (Saline Flush) 2.5 ml FLUSH ASDIRECTED PRN PRN Reason: Keep Vein Open Last Admin: 12/17/19 15:09 Dose: 2.5 ml Documented by: MURMEAGN - Assessment Assessment (Free Text/Narrative):: 1) s/p IM nail left hip fracture - Plan Plan (Free Text/Narrative):: Inge is doing well this morning. VSS/afebrile. Tolerating food/fluids without N/V. Pain is minimal. She has not necessitated additional oral narcotic above the scheduled Toradol. Kidney function normal. Will start Ibuprofen. Hanson catheter removed this morning. She has not yet been OOB, and is requesting to get up to use the bathroom. WBAT with use of walker and staff. Start PT this morning. Dressings to left hip CDI with minimal soft tissue swelling. Continue use of ice to left hip. Dr Ceron will be by later today to assess how ambulation went with staff and therapy.
[2019-12-19] MEDS ORDERED: Aspirin 325 MG Tab PO SCH (09:00)
[2019-12-19] MEDS: Ibuprofen 800 MG Tab PO SCH ×3 (09:06→17:59)
--- NOTE | 2019-12-19 10:06 | CR ---
Left hip: 14 fluoroscopic spot views were obtained of the left hip utilizing C-arm device. Comparison: Prior left hip radiographic study of 12/17/19. Study shows fixation of previous intertrochanteric fracture with intramedullary chavez as well as 2 fixation screws affixing the intramedullary chavez into the femoral head. Fluoroscopy time given as 102 seconds. Impression: 1. Procedural study as noted above. Diagnostic code #2 This report was dictated in MDT
[2019-12-19] MEDS ORDERED: HYDROmorphone 1 MG/ML Syringe IVPUSH PRN (10:12)
[2019-12-19] MEDS: ceFAZolin 2 GM in Premix Bag 1 BAG IV SCH (11:25)
[2019-12-19] MEDS: Ketorolac 30 MG/ML SDV IVPUSH SCH (11:25)
--- NOTE | 2019-12-19 12:50 | PCM.PN ---
- General Info Date of Service: 12/19/19 - Patient Data Vitals - Most Recent: Last Vital Signs Temp 99.9 F 12/19/19 11:00 Pulse 91 12/19/19 07:30 Resp 16 12/19/19 11:00 BP 136/79 12/19/19 11:00 Pulse Ox 94 L 12/19/19 11:00 Weight - Most Recent: 226 lb I&O - Last 24 Hours: Intake & Output 12/18/19 12/19/19 12/19/19 22:59 06:59 14:59 Intake Total 9513 175 0459 Output Total 1400 1550 Balance 550 -1070 1229 Lab Results Last 24 Hours: Laboratory Results - last 24 hr 12/18/19 12/18/19 12/19/19 Range/Units 15:47 17:42 05:50 WBC 6.94 (4.0-11.0) K/uL RBC 4.00 L (4.30-5.90) M/uL Hgb 11.8 L (12.0-16.0) g/dL Hct 35.1 L (36.0-46.0) % MCV 87.8 (80.0-98.0) fL MCH 29.5 (27.0-32.0) pg MCHC 33.6 (31.0-37.0) g/dL RDW Std Deviation 40.4 (28.0-62.0) fl RDW Coeff of Thor 13 (11.0-15.0) % Plt Count 201 (150-400) K/uL MPV 9.40 (7.40-12.00) fL Neut % (Auto) 73.8 (48.0-80.0) % Lymph % (Auto) 19.6 (16.0-40.0) % [place] % (Auto) 5.9 (0.0-15.0) % Eos % (Auto) 0.6 (0.0-7.0) % Baso % (Auto) 0.1 (0.0-1.5) % Neut # (Auto) 5.1 (1.4-5.7) K/uL Lymph # (Auto) 1.4 (0.6-2.4) K/uL [place] # (Auto) 0.4 (0.0-0.8) K/uL Eos # (Auto) 0.0 (0.0-0.7) K/uL Baso # (Auto) 0.0 (0.0-0.1) K/uL Nucleated RBC % 0.0 /100WBC Nucleated RBCs # 0 K/uL Sodium (136-145) mmol/L Potassium (3.5-5.1) mmol/L Chloride (98-107) mmol/L Carbon Dioxide (21.0-32.0) mmol/L BUN (7.0-18.0) mg/dL Creatinine (0.6-1.0) mg/dL Est Cr Clr Drug Dosing mL/min Estimated GFR (MDRD) ml/min Glucose (74-106) mg/dL POC Glucose 90 105 (60-110) mg/dL Calcium (8.5-10.1) mg/dL 12/19/19 12/19/19 12/19/19 Range/Units 06:27 06:28 11:51 WBC (4.0-11.0) K/uL RBC (4.30-5.90) M/uL Hgb (12.0-16.0) g/dL Hct (36.0-46.0) % MCV (80.0-98.0) fL MCH (27.0-32.0) pg MCHC (31.0-37.0) g/dL RDW Std Deviation (28.0-62.0) fl RDW Coeff of Thor (11.0-15.0) % Plt Count (150-400) K/uL MPV (7.40-12.00) fL Neut % (Auto) (48.0-80.0) % Lymph % (Auto) (16.0-40.0) % [place] % (Auto) (0.0-15.0) % Eos % (Auto) (0.0-7.0) % Baso % (Auto) (0.0-1.5) % Neut # (Auto) (1.4-5.7) K/uL Lymph # (Auto) (0.6-2.4) K/uL [place] # (Auto) (0.0-0.8) K/uL Eos # (Auto) (0.0-0.7) K/uL Baso # (Auto) (0.0-0.1) K/uL Nucleated RBC % /100WBC Nucleated RBCs # K/uL Sodium 141 (136-145) mmol/L Potassium 3.9 (3.5-5.1) mmol/L Chloride 103 (98-107) mmol/L Carbon Dioxide 30.7 (21.0-32.0) mmol/L BUN 6 L (7.0-18.0) mg/dL Creatinine 0.5 L (0.6-1.0) mg/dL Est Cr Clr Drug Dosing 107.64 mL/min Estimated GFR (MDRD) > 60.0 ml/min Glucose 136 H (74-106) mg/dL POC Glucose 138 H 152 H (60-110) mg/dL Calcium 8.5 (8.5-10.1) mg/dL Med Orders - Current: Current Medications Acetaminophen (Tylenol) 650 mg PO Q4H PRN PRN Reason: Fever Al Hydroxide/Mg Hydroxide (Mag-Al Plus) 30 ml PO Q4H PRN PRN Reason: Indigestion Albuterol (Proventil Neb Soln) 2.5 mg NEB ONETIME PRN PRN Reason: Wheezing Aspirin (Aspirin) 325 mg PO DAILY [facility] Last Admin: 12/19/19 08:37 Dose: 325 mg Documented by: Bisacodyl (Dulcolax) 10 mg RECTAL DAILY PRN PRN Reason: Constipation Buspirone HCl (Buspar) 7.5 mg PO BID [facility] Last Admin: 12/19/19 08:39 Dose: 7.5 mg Documented by: Dextrose/Water (Dextrose 50% In Water) 50 ml IVPUSH ASDIRECTED PRN PRN Reason: Hypoglycemia Diphenhydramine HCl (Benadryl) 25 - 50 mg PO Q6H PRN PRN Reason: Itching Docusate Sodium (Colace) 100 mg PO BID PRN PRN Reason: Constipation Gabapentin (Neurontin) 600 mg PO TID [facility] Hydrochlorothiazide (Hydrochlorothiazide) 12.5 mg PO DAILY [facility] Last Admin: 12/19/19 08:38 Dose: 12.5 mg Documented by: Hydromorphone HCl (Dilaudid) 1 mg IVPUSH Q4H PRN PRN Reason: severe Pain Ibuprofen (Motrin) 800 mg PO Q8H [facility] Last Admin: 12/19/19 09:06 Dose: 800 mg Documented by: Insulin Aspart (Novolog) 0 unit SUBCUT TIDAC [facility]; Protocol Last Admin: 12/19/19 11:57 Dose: 1 unit Documented by: Lisinopril (Prinivil) 10 mg PO DAILY [facility] Last Admin: 12/19/19 08:38 Dose: 10 mg Documented by: Naloxone HCl (Narcan) 0.1 mg IVPUSH ASDIRECTED PRN PRN Reason: Respiratory Depression Oxycodone HCl (Oxycodone) 5 - 10 mg PO Q4H PRN PRN Reason: Pain Polyethylene Glycol (Miralax) 17 gm PO DAILY [facility] Last Admin: 12/19/19 08:39 Dose: 17 gm Documented by: Sodium Chloride (Saline Flush) 10 ml FLUSH ASDIRECTED PRN PRN Reason: Keep Vein Open Last Admin: 12/17/19 15:09 Dose: 10 ml Documented by: Sodium Chloride (Saline Flush) 2.5 ml FLUSH ASDIRECTED PRN PRN Reason: Keep Vein Open Last Admin: 12/17/19 15:09 Dose: 2.5 ml Documented by: Discontinued Medications Aspirin (Aspirin) 325 mg PO DAILY [facility] Aspirin (Aspirin) 325 mg PO DAILY [facility] Last Admin: 12/18/19 20:19 Dose: Not Given Documented by: Atropine Sulfate (Atropine 0.1 Mg/Ml) 0.5 mg IVPUSH ASDIRECTED PRN PRN Reason: Hypo-perfusion Atropine Sulfate (Atropine 0.1 Mg/Ml) 1 mg IVPUSH ASDIRECTED PRN PRN Reason: Hypo-Perfusion Bupivacaine HCl (Sensorcaine-Mpf 0.5%) Confirm Administered Dose 10 ml .ROUTE .STK-MED ONE Stop: 12/18/19 12:43 Cefazolin Sodium/Dextrose (Ancef) Confirm Administered Dose 2 gm IV .STK-MED ONE Stop: 12/18/19 13:25 Diphenhydramine HCl (Benadryl) 25 mg IVPUSH ONETIME ONE Stop: 12/17/19 22:34 Last Admin: 12/17/19 22:51 Dose: 25 mg Documented by: Ephedrine Sulfate (Ephedrine Sulfate) Confirm Administered Dose 50 mg .ROUTE .STK-MED ONE Stop: 12/18/19 13:56 Epinephrine HCl (Epinephrine 1:10,000) 1 mg IVPUSH ASDIRECTED PRN PRN Reason: ACLS Guidelines Fentanyl (Fentanyl) 100 mcg IVPUSH ONETIME ONE Stop: 12/17/19 16:57 Last Admin: 12/17/19 17:11 Dose: 100 mcg Documented by: Fentanyl (Sublimaze) Confirm Administered Dose 100 mcg .ROUTE .STK-MED ONE Stop: 12/18/19 10:02 Fentanyl (Sublimaze) 50 mcg IVPUSH Q5M PRN PRN Reason: Pain Gabapentin (Neurontin) 100 mg PO ACBREAKFAST [facility] Last Admin: 12/19/19 08:38 Dose: 100 mg Documented by: Gabapentin (Neurontin) 200 mg PO BEDTIME [facility] Last Admin: 12/18/19 21:27 Dose: 200 mg Documented by: Hydromorphone HCl (Dilaudid) 0.5 mg IVPUSH Q2H PRN PRN Reason: Pain Last Admin: 12/17/19 21:25 Dose: 0.5 mg Documented by: Hydromorphone HCl (Dilaudid) 1 mg IVPUSH Q2H PRN PRN Reason: Pain Last Admin: 12/18/19 08:29 Dose: 1 mg Documented by: Hydromorphone HCl (Dilaudid) 0.25 mg IVPUSH .Q5MIN PRN PRN Reason: Pain (severe 7-10) Stop: 12/19/19 14:47 Sodium Chloride (Normal Saline) 1,000 mls @ 125 mls/hr IV ASDIRECTED [facility] Last Admin: 12/17/19 15:09 Dose: 125 mls/hr Documented by: Lactated Ringer's (Ringers, Lactated) 1,000 mls @ 100 mls/hr IV ASDIRECTED [facility] Last Admin: 12/19/19 01:58 Dose: 100 mls/hr Documented by: Acetaminophen (Ofirmev) Confirm Administered Dose 100 mls @ as directed .ROUTE .STK-MED ONE Stop: 12/18/19 12:43 Sodium Chloride (Normal Saline) Confirm Administered Dose 20 mls @ as directed .ROUTE .STK-MED ONE Stop: 12/18/19 14:25 Cefazolin Sodium/Dextrose 2 gm (/ Premix) 50 mls @ 100 mls/hr IV Q8H [facility] Stop: 12/19/19 06:29 Last Admin: 12/19/19 11:25 Dose: Not Given Documented by: Ketorolac Tromethamine (Toradol) Confirm Administered Dose 30 mg .ROUTE .STK-MED ONE Stop: 12/18/19 14:59 Ketorolac Tromethamine (Toradol) 30 mg IVPUSH Q6H [facility] Stop: 12/19/19 05:00 Last Admin: 12/19/19 11:25 Dose: Not Given Documented by: Lidocaine HCl (Xylocaine-Mpf 1%) Confirm Administered Dose 5 ml .ROUTE .STK-MED ONE Stop: 12/18/19 10:03 Lorazepam (Ativan) 0.5 mg IVPUSH ONETIME ONE Stop: 12/17/19 22:36 Last Admin: 12/17/19 22:51 Dose: 0.5 mg Documented by: Midazolam HCl (Versed 1 Mg/Ml) Confirm Administered Dose 2 mg .ROUTE .STK-MED ONE Stop: 12/18/19 10:02 Midazolam HCl (Versed 1 Mg/Ml) Confirm Administered Dose 2 mg .ROUTE .STK-MED ONE Stop: 12/18/19 12:59 Morphine Sulfate (Morphine) 4 mg IVPUSH ONETIME ONE Stop: 12/17/19 15:00 Last Admin: 12/17/19 15:12 Dose: 4 mg Documented by: Morphine Sulfate (Morphine) 2 mg IVPUSH Q2H PRN PRN Reason: Pain Stop: 12/18/19 17:46 Ondansetron HCl (Zofran) 4 mg IVPUSH ONETIME ONE Stop: 12/17/19 15:00 Last Admin: 12/17/19 15:12 Dose: 4 mg Documented by: Ondansetron HCl (Zofran) Confirm Administered Dose 4 mg .ROUTE .STK-MED ONE Stop: 12/18/19 10:03 Ondansetron HCl (Zofran) 4 mg IVPUSH ONETIME PRN PRN Reason: Nausea or vomiting Oxycodone/Acetaminophen (Percocet 325-5 Mg) 1 tab PO Q6H [facility] Last Admin: 12/18/19 10:38 Dose: 1 tab Documented by: Phenylephrine HCl (Napoleon-Synephrine) Confirm Administered Dose 10 mg .ROUTE .STK- MED ONE Stop: 12/18/19 13:33 Phenylephrine HCl (Napoleon-Synephrine) Confirm Administered Dose 10 mg .ROUTE .STK- MED ONE Stop: 12/18/19 14:22 Propofol (Diprivan 20 Ml) Confirm Administered Dose 400 mg .ROUTE .STK-MED ONE Stop: 12/18/19 10:02 Propofol (Diprivan 20 Ml) Confirm Administered Dose 400 mg .ROUTE .STK-MED ONE Stop: 12/18/19 13:44 Propofol (Diprivan 20 Ml) Confirm Administered Dose 200 mg .ROUTE .STK-MED ONE Stop: 12/18/19 14:34 Propofol (Diprivan 20 Ml) Confirm Administered Dose 200 mg .ROUTE .STK-MED ONE Stop: 12/18/19 14:34 Sepsis Event Note - Evaluation Sepsis Screening Result: No Definite Risk - Focused Exam Vital Signs: Vital Signs Temp Pulse Resp BP BP Pulse Ox 12/19/19 11:00 99.9 F 16 136/79 94 L 12/19/19 08:38 153/86 H 12/19/19 07:30 99.4 F 91 13 131/68 92 L 12/19/19 04:00 97.7 F 89 18 140/82 93 L - Problem List Review Problem List Initiated/Reviewed/Updated: Yes - Plan Plan:: Assessment/Plan:cDay #1 S/P IM Nail left hip fracture. Control pain with Dilaudid 1mg Q4HR PRN, Motrin 800mg Q8HR, Oxy 5-10mg Q4HR PRN. Sliding Scale Insulin (Low Dose). Patient has resumed PO intake. Patient did retain urine this AM, required straight catheterization. Will monitor for signs of urinary retention and will place Bruner if needed. Will adjust treatment plan if necessary based on recommendations from orthopedic surgery.
[2019-12-19] MEDS: oxyCODONE 5 MG Tab PO PRN ×2 (14:44→20:35)
[2019-12-19] MEDS: Gabapentin 300 MG Cap PO SCH ×2 (14:44→21:00)
[2019-12-20] MEDS: Ibuprofen 800 MG Tab PO SCH ×2 (00:10→08:40)
[2019-12-20] MEDS: Gabapentin 300 MG Cap PO SCH (05:55)
[2019-12-20 06:32] LABS: BLOOD UREA NITROGEN,BUN 11 mg/dL (7.0-18.0); CARBON DIOXIDE,CO2 30.4 mmol/L (21.0-32.0); CHLORIDE,CL 102 mmol/L (98-107); GLUCOSE RANDOM 124 mg/dL (74-106); POTASSIUM,K 3.4 mmol/L (3.5-5.1); SODIUM,NA 140 mmol/L (136-145)
[2019-12-20] MEDS: Insulin Aspart 100 Units/ML 3 ML Pen SUBCUT SCH ×2 (06:34→12:08)
[2019-12-20] MEDS ORDERED: Potassium Chloride 20 MEQ Tab.ER PO ONE (07:56)
[2019-12-20] MEDS: Hydrochlorothiazide 12.5 MG Cap PO SCH (08:38)
--- NOTE | 2019-12-20 08:40 | PCM.SURGPN ---
- General Info Date of Service: 12/20/19 (814) Date of Surgery/Procedure: 12/18/19 POD#: 2 Functional Status: Reports: Pain Controlled (routine ibuprofen and oxycodone. Took oxycodone last night prior to bed and stated she slept very well. ), Tolerating Diet (up in chair eating breakfast), Ambulating (does well walking with walker. Only transfer she has pain with is getting in and out of bed, "but I can do it, slowly." ), Urinating - Review of Systems General: Denies: Fever Gastrointestinal: Denies: Nausea, Vomiting Musculoskeletal: Reports: Joint Pain (minimal hip pain) Psychiatric: Reports: No Symptoms - Patient Data Vitals - Most Recent: Last Vital Signs Temp 37 C 12/20/19 05:00 Pulse 88 12/20/19 05:00 Resp 20 12/20/19 05:00 BP 108/63 12/20/19 05:00 Pulse Ox 95 12/20/19 05:00 Weight - Most Recent: 102.512 kg I&O - Last 24 Hours: Intake & Output 12/19/19 12/20/19 12/20/19 22:59 06:59 14:59 Intake Total 400 550 Output Total 1475 700 Balance -1075 -150 Lab Results Last 24 Hrs: Laboratory Results - last 24 hr 12/19/19 12/19/19 12/20/19 Range/Units 11:51 17:30 05:56 WBC 7.45 (4.0-11.0) K/uL RBC 3.75 L (4.30-5.90) M/uL Hgb 11.0 L (12.0-16.0) g/dL Hct 32.9 L (36.0-46.0) % MCV 87.7 (80.0-98.0) fL MCH 29.3 (27.0-32.0) pg MCHC 33.4 (31.0-37.0) g/dL RDW Std Deviation 41.4 (28.0-62.0) fl RDW Coeff of Thor 13 (11.0-15.0) % Plt Count 186 (150-400) K/uL MPV 9.50 (7.40-12.00) fL Neut % (Auto) 68.3 (48.0-80.0) % Lymph % (Auto) 24.3 (16.0-40.0) % Ware % (Auto) 5.6 (0.0-15.0) % Eos % (Auto) 1.7 (0.0-7.0) % Baso % (Auto) 0.1 (0.0-1.5) % Neut # (Auto) 5.1 (1.4-5.7) K/uL Lymph # (Auto) 1.8 (0.6-2.4) K/uL Ware # (Auto) 0.4 (0.0-0.8) K/uL Eos # (Auto) 0.1 (0.0-0.7) K/uL Baso # (Auto) 0.0 (0.0-0.1) K/uL Nucleated RBC % 0.0 /100WBC Nucleated RBCs # 0 K/uL Sodium (136-145) mmol/L Potassium (3.5-5.1) mmol/L Chloride (98-107) mmol/L Carbon Dioxide (21.0-32.0) mmol/L BUN (7.0-18.0) mg/dL Creatinine (0.6-1.0) mg/dL Est Cr Clr Drug Dosing mL/min Estimated GFR (MDRD) ml/min Glucose (74-106) mg/dL POC Glucose 152 H 122 H (60-110) mg/dL Calcium (8.5-10.1) mg/dL 12/20/19 12/20/19 12/20/19 Range/Units 05:56 05:56 08:01 WBC (4.0-11.0) K/uL RBC (4.30-5.90) M/uL Hgb (12.0-16.0) g/dL Hct (36.0-46.0) % MCV (80.0-98.0) fL MCH (27.0-32.0) pg MCHC (31.0-37.0) g/dL RDW Std Deviation (28.0-62.0) fl RDW Coeff of Thor (11.0-15.0) % Plt Count (150-400) K/uL MPV (7.40-12.00) fL Neut % (Auto) (48.0-80.0) % Lymph % (Auto) (16.0-40.0) % Ware % (Auto) (0.0-15.0) % Eos % (Auto) (0.0-7.0) % Baso % (Auto) (0.0-1.5) % Neut # (Auto) (1.4-5.7) K/uL Lymph # (Auto) (0.6-2.4) K/uL Ware # (Auto) (0.0-0.8) K/uL Eos # (Auto) (0.0-0.7) K/uL Baso # (Auto) (0.0-0.1) K/uL Nucleated RBC % /100WBC Nucleated RBCs # K/uL Sodium 140 (136-145) mmol/L Potassium 3.4 L (3.5-5.1) mmol/L Chloride 102 (98-107) mmol/L Carbon Dioxide 30.4 (21.0-32.0) mmol/L BUN 11 (7.0-18.0) mg/dL Creatinine 0.5 L (0.6-1.0) mg/dL Est Cr Clr Drug Dosing 107.64 mL/min Estimated GFR (MDRD) > 60.0 ml/min Glucose 124 H (74-106) mg/dL POC Glucose 131 H 133 H (60-110) mg/dL Calcium 7.3 L (8.5-10.1) mg/dL Med Orders - Current: Current Medications Acetaminophen (Tylenol) 650 mg PO Q4H PRN PRN Reason: Fever Al Hydroxide/Mg Hydroxide (Mag-Al Plus) 30 ml PO Q4H PRN PRN Reason: Indigestion Albuterol (Proventil Neb Soln) 2.5 mg NEB ONETIME PRN PRN Reason: Wheezing Aspirin (Aspirin) 325 mg PO DAILY [facility] Last Admin: 12/19/19 08:37 Dose: 325 mg Documented by: Bisacodyl (Dulcolax) 10 mg RECTAL DAILY PRN PRN Reason: Constipation Buspirone HCl (Buspar) 7.5 mg PO BID [facility] Last Admin: 12/19/19 20:34 Dose: 7.5 mg Documented by: Dextrose/Water (Dextrose 50% In Water) 50 ml IVPUSH ASDIRECTED PRN PRN Reason: Hypoglycemia Diphenhydramine HCl (Benadryl) 25 - 50 mg PO Q6H PRN PRN Reason: Itching Docusate Sodium (Colace) 100 mg PO BID PRN PRN Reason: Constipation Gabapentin (Neurontin) 600 mg PO TID [facility] Last Admin: 12/20/19 05:55 Dose: 600 mg Documented by: Hydrochlorothiazide (Hydrochlorothiazide) 12.5 mg PO DAILY [facility] Last Admin: 12/19/19 08:38 Dose: 12.5 mg Documented by: Hydromorphone HCl (Dilaudid) 1 mg IVPUSH Q4H PRN PRN Reason: severe Pain Ibuprofen (Motrin) 800 mg PO Q8H [facility] Last Admin: 12/20/19 00:10 Dose: 800 mg Documented by: Insulin Aspart (Novolog) 0 unit SUBCUT TIDAC [facility]; Protocol Last Admin: 12/20/19 06:34 Dose: Not Given Documented by: Lisinopril (Prinivil) 10 mg PO DAILY [facility] Last Admin: 12/19/19 08:38 Dose: 10 mg Documented by: Naloxone HCl (Narcan) 0.1 mg IVPUSH ASDIRECTED PRN PRN Reason: Respiratory Depression Oxycodone HCl (Oxycodone) 5 - 10 mg PO Q4H PRN PRN Reason: Pain Last Admin: 12/19/19 20:35 Dose: 5 mg Documented by: Polyethylene Glycol (Miralax) 17 gm PO DAILY [facility] Last Admin: 12/19/19 08:39 Dose: 17 gm Documented by: Sodium Chloride (Saline Flush) 10 ml FLUSH ASDIRECTED PRN PRN Reason: Keep Vein Open Last Admin: 12/17/19 15:09 Dose: 10 ml Documented by: Sodium Chloride (Saline Flush) 2.5 ml FLUSH ASDIRECTED PRN PRN Reason: Keep Vein Open Last Admin: 12/17/19 15:09 Dose: 2.5 ml Documented by: Discontinued Medications Aspirin (Aspirin) 325 mg PO DAILY [facility] Aspirin (Aspirin) 325 mg PO DAILY [facility] Last Admin: 12/18/19 20:19 Dose: Not Given Documented by: Atropine Sulfate (Atropine 0.1 Mg/Ml) 0.5 mg IVPUSH ASDIRECTED PRN PRN Reason: Hypo-perfusion Atropine Sulfate (Atropine 0.1 Mg/Ml) 1 mg IVPUSH ASDIRECTED PRN PRN Reason: Hypo-Perfusion Bupivacaine HCl (Sensorcaine-Mpf 0.5%) Confirm Administered Dose 10 ml .ROUTE .STK-MED ONE Stop: 12/18/19 12:43 Cefazolin Sodium/Dextrose (Ancef) Confirm Administered Dose 2 gm IV .STK-MED ONE Stop: 12/18/19 13:25 Diphenhydramine HCl (Benadryl) 25 mg IVPUSH ONETIME ONE Stop: 12/17/19 22:34 Last Admin: 12/17/19 22:51 Dose: 25 mg Documented by: Ephedrine Sulfate (Ephedrine Sulfate) Confirm Administered Dose 50 mg [facility] Stop: 12/18/19 13:56 Epinephrine HCl (Epinephrine 1:10,000) 1 mg IVPUSH ASDIRECTED PRN PRN Reason: ACLS Guidelines Fentanyl (Fentanyl) 100 mcg IVPUSH ONETIME ONE Stop: 12/17/19 16:57 Last Admin: 12/17/19 17:11 Dose: 100 mcg Documented by: Fentanyl (Sublimaze) Confirm Administered Dose 100 mcg [facility] Stop: 12/18/19 10:02 Fentanyl (Sublimaze) 50 mcg IVPUSH Q5M PRN PRN Reason: Pain Gabapentin (Neurontin) 100 mg PO ACBREAKFAST [facility] Last Admin: 12/19/19 08:38 Dose: 100 mg Documented by: Gabapentin (Neurontin) 200 mg PO BEDTIME [facility] Last Admin: 12/18/19 21:27 Dose: 200 mg Documented by: Hydromorphone HCl (Dilaudid) 0.5 mg IVPUSH Q2H PRN PRN Reason: Pain Last Admin: 12/17/19 21:25 Dose: 0.5 mg Documented by: Hydromorphone HCl (Dilaudid) 1 mg IVPUSH Q2H PRN PRN Reason: Pain Last Admin: 12/18/19 08:29 Dose: 1 mg Documented by: Hydromorphone HCl (Dilaudid) 0.25 mg IVPUSH .Q5MIN PRN PRN Reason: Pain (severe 7-10) Stop: 12/19/19 14:47 Sodium Chloride (Normal Saline) 1,000 mls @ 125 mls/hr IV ASDIRECTED [facility] Last Admin: 12/17/19 15:09 Dose: 125 mls/hr Documented by: Lactated Ringer's (Ringers, Lactated) 1,000 mls @ 100 mls/hr IV ASDIRECTED [facility] Last Admin: 12/19/19 01:58 Dose: 100 mls/hr Documented by: Acetaminophen (Ofirmev) Confirm Administered Dose 100 mls @ as directed .ROUTE .STK-MED ONE Stop: 12/18/19 12:43 Sodium Chloride (Normal Saline) Confirm Administered Dose 20 mls @ as directed .ROUTE .STK-MED ONE Stop: 12/18/19 14:25 Cefazolin Sodium/Dextrose 2 gm (/ Premix) 50 mls @ 100 mls/hr IV Q8H [facility] Stop: 12/19/19 06:29 Last Admin: 12/19/19 11:25 Dose: Not Given Documented by: Ketorolac Tromethamine (Toradol) Confirm Administered Dose 30 mg .ROUTE .STK-MED ONE Stop: 12/18/19 14:59 Ketorolac Tromethamine (Toradol) 30 mg IVPUSH Q6H [facility] Stop: 12/19/19 05:00 Last Admin: 12/19/19 11:25 Dose: Not Given Documented by: Lidocaine HCl (Xylocaine-Mpf 1%) Confirm Administered Dose 5 ml .ROUTE .STK-MED ONE Stop: 12/18/19 10:03 Lorazepam (Ativan) 0.5 mg IVPUSH ONETIME ONE Stop: 12/17/19 22:36 Last Admin: 12/17/19 22:51 Dose: 0.5 mg Documented by: Midazolam HCl (Versed 1 Mg/Ml) Confirm Administered Dose 2 mg .ROUTE .STK-MED ONE Stop: 12/18/19 10:02 Midazolam HCl (Versed 1 Mg/Ml) Confirm Administered Dose 2 mg .ROUTE .STK-MED ONE Stop: 12/18/19 12:59 Morphine Sulfate (Morphine) 4 mg IVPUSH ONETIME ONE Stop: 12/17/19 15:00 Last Admin: 12/17/19 15:12 Dose: 4 mg Documented by: Morphine Sulfate (Morphine) 2 mg IVPUSH Q2H PRN PRN Reason: Pain Stop: 12/18/19 17:46 Ondansetron HCl (Zofran) 4 mg IVPUSH ONETIME ONE Stop: 12/17/19 15:00 Last Admin: 12/17/19 15:12 Dose: 4 mg Documented by: Ondansetron HCl (Zofran) Confirm Administered Dose 4 mg .ROUTE .STK-MED ONE Stop: 12/18/19 10:03 Ondansetron HCl (Zofran) 4 mg IVPUSH ONETIME PRN PRN Reason: Nausea or vomiting Oxycodone/Acetaminophen (Percocet 325-5 Mg) 1 tab PO Q6H [facility] Last Admin: 12/18/19 10:38 Dose: 1 tab Documented by: Phenylephrine HCl (Napoleon-Synephrine) Confirm Administered Dose 10 mg .ROUTE .STK- MED ONE Stop: 12/18/19 13:33 Phenylephrine HCl (Napoleon-Synephrine) Confirm Administered Dose 10 mg .ROUTE .STK- MED ONE Stop: 12/18/19 14:22 Potassium Chloride (Klor-Con M20) 40 meq PO ONETIME ONE Stop: 12/20/19 07:57 Propofol (Diprivan 20 Ml) Confirm Administered Dose 400 mg .ROUTE .STK-MED ONE Stop: 12/18/19 10:02 Propofol (Diprivan 20 Ml) Confirm Administered Dose 400 mg .ROUTE .STK-MED ONE Stop: 12/18/19 13:44 Propofol (Diprivan 20 Ml) Confirm Administered Dose 200 mg .ROUTE .STK-MED ONE Stop: 12/18/19 14:34 Propofol (Diprivan 20 Ml) Confirm Administered Dose 200 mg .ROUTE .STK-MED ONE Stop: 12/18/19 14:34 - Exam Wound/Incisions: Dressing Dry and Intact, No Drainage. No: Erythema Quality Assessment: DVT Prophylaxis (ASA, ambulation, SCDs when in bed) General: Alert, Oriented, Cooperative, No Acute Distress Lungs: Normal Respiratory Effort Extremities: Other (Sensation intact to LLE). No: Pedal Edema Skin: Warm, Dry Neurological: Normal Speech Psy/Mental Status: Alert, Normal Affect Physical Findings Comment:: surgical dressings to left hip removed. Dressings were CDI without drainage. Surgical incisions well approximated with no active drainage. No surrounding erythema. Small AquaCell bandage applied to each incision site. Sepsis Event Note - Evaluation Sepsis Screening Result: No Definite Risk - Focused Exam Vital Signs: Vital Signs Temp Pulse Resp BP Pulse Ox 09/11/20 05:00 37 C 88 20 108/63 95 12/20/19 00:00 36.4 C 79 18 109/60 94 L - Problem List Review Problem List Initiated/Reviewed/Updated: Yes - My Orders Last 24 Hours: Active Orders 24 hr Category Date Time Status Bruner Catheter Insertion [Insert Urinary Catheter] [OM. Care 12/19/19 10:21 Ordered PC] Stat Aspirin Med 12/19/19 09:00 Active 325 mg PO DAILY Gabapentin [Neurontin] Med 12/19/19 14:00 Active 600 mg PO TID HYDROmorphone [Dilaudid] Med 12/19/19 10:12 Active 1 mg IVPUSH Q4H PRN Ibuprofen [Motrin] Med 12/19/19 09:00 Active 800 mg PO Q8H polyethylene glycoL 3350 [MiraLAX] Med 12/19/19 09:00 Active 17 gm PO DAILY Medication Orders Acetaminophen (Tylenol) 650 mg PO Q4H PRN PRN Reason: Fever Al Hydroxide/Mg Hydroxide (Mag-Al Plus) 30 ml PO Q4H PRN PRN Reason: Indigestion Albuterol (Proventil Neb Soln) 2.5 mg NEB ONETIME PRN PRN Reason: Wheezing Aspirin (Aspirin) 325 mg PO DAILY [facility] Admin: 12/19/19 08:37 Dose: 325 mg Documented by: LALITA Cosigned by: GERA Bisacodyl (Dulcolax) 10 mg RECTAL DAILY PRN PRN Reason: Constipation Buspirone HCl (Buspar) 7.5 mg PO BID [facility] Admin: 12/19/19 20:34 Dose: 7.5 mg Documented by: Admin: 12/19/19 08:39 Dose: 7.5 mg Documented by: LALITA Cosigned by: GERA Admin: 12/18/19 21:27 Dose: 7.5 mg Documented by: Admin: 12/18/19 08:38 Dose: 7.5 mg Documented by: Admin: 12/17/19 21:30 Dose: 7.5 mg Documented by: Admin: 12/17/19 19:01 Dose: 7.5 mg Documented by: PROFLUC Dextrose/Water (Dextrose 50% In Water) 50 ml IVPUSH ASDIRECTED PRN PRN Reason: Hypoglycemia Diphenhydramine HCl (Benadryl) 25 - 50 mg PO Q6H PRN PRN Reason: Itching Docusate Sodium (Colace) 100 mg PO BID PRN PRN Reason: Constipation Gabapentin (Neurontin) 600 mg PO TID [facility] Last Admin: 12/20/19 05:55 Dose: 600 mg Documented by: Admin: 12/19/19 21:00 Dose: 600 mg Documented by: Admin: 12/19/19 14:44 Dose: 600 mg Documented by: LO Hydrochlorothiazide (Hydrochlorothiazide) 12.5 mg PO DAILY [facility] Last Admin: 12/19/19 08:38 Dose: 12.5 mg Documented by: LALITA Cosigned by: GERA Admin: 12/18/19 08:38 Dose: 12.5 mg Documented by: LO Hydromorphone HCl (Dilaudid) 1 mg IVPUSH Q4H PRN PRN Reason: severe Pain Ibuprofen (Motrin) 800 mg PO Q8H [facility] Last Admin: 12/20/19 00:10 Dose: 800 mg Documented by: Admin: 12/19/19 17:59 Dose: 800 mg Documented by: Admin: 12/19/19 09:06 Dose: 800 mg Documented by: LALITA Mcdonaldigned by: GERA Insulin Aspart (Novolog) 0 unit SUBCUT TIDAC [facility]; Protocol Last Admin: 12/20/19 06:34 Dose: Not Given Documented by: Admin: 12/19/19 17:31 Dose: Not Given Documented by: Admin: 12/19/19 11:57 Dose: 1 unit Documented by: Admin: 12/19/19 07:05 Dose: Not Given Documented by: Admin: 12/18/19 17:44 Dose: Not Given Documented by: Admin: 12/18/19 11:55 Dose: Not Given Documented by: Admin: 12/18/19 07:08 Dose: Not Given Documented by: TASNEEM Lisinopril (Prinivil) 10 mg PO DAILY [facility] Last Admin: 12/19/19 08:38 Dose: 10 mg Documented by: LALITA Cosigned by: GERA Admin: 12/18/19 08:37 Dose: 10 mg Documented by: MENSFRA Naloxone HCl (Narcan) 0.1 mg IVPUSH ASDIRECTED PRN PRN Reason: Respiratory Depression Oxycodone HCl (Oxycodone) 5 - 10 mg PO Q4H PRN PRN Reason: Pain Last Admin: 12/19/19 20:35 Dose: 5 mg Documented by: Admin: 12/19/19 14:44 Dose: 5 mg Documented by: LO Polyethylene Glycol (Miralax) 17 gm PO DAILY [facility] Last Admin: 12/19/19 08:39 Dose: 17 gm Documented by: LALITA Cosigned by: GERA Sodium Chloride (Saline Flush) 10 ml FLUSH ASDIRECTED PRN PRN Reason: Keep Vein Open Last Admin: 12/17/19 15:09 Dose: 10 ml Documented by: NAYA Sodium Chloride (Saline Flush) 2.5 ml FLUSH ASDIRECTED PRN PRN Reason: Keep Vein Open Last Admin: 12/17/19 15:09 Dose: 2.5 ml Documented by: NAYA - Assessment Assessment (Free Text/Narrative):: 1) s/p IM nail left hip fracture 2) 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 VSS/afebrile. tolerating food/fluids without N/V. Pain tolerable with routine Ibuprofen and oxycodone prn. Took dose of oxycodone last night and states she slept very well. Ambulating well with walker. States her biggest struggle is getting in and out of bed. She will specifically address this with PT this morning. Inge feels ready to go home and I concur with this. She will be discharged with 3 additional small AquaCell dressings, to change in 1 week. Rx for Ibuprofen 800mg, ASA 325mg and oxycodone will be sent to her pharmacy. She has a walker at home, but needs a Rx for a toilet seat riser. Discharge paperwork completed.
[2019-12-20] MEDS: Aspirin 325 MG Tab PO SCH (08:41)
[2019-12-20] MEDS: Lisinopril 10 MG Tab PO SCH (08:42)
[2019-12-20] MEDS: busPIRone 5 MG Tab PO SCH (08:44)
[2019-12-20] MEDS: oxyCODONE 5 MG Tab PO PRN (08:44)
[2019-12-20] MEDS: Polyethylene Glycol 3350 Powder 17 GM Packet PO SCH ×2 (08:45→08:47)
--- NOTE | 2019-12-20 11:49 | PCM.DCSUM1 ---
Discharge Summary - Hospital Course Free Text/Narrative:: 54 year old female admitted to the medical floor for medical management of Diabetes prior to a surgical repair of the left hip due to a intertrochanteric hip fracture. Patients surgical procedure included an Intramedullary nailing of left reverse oblique intertrochanteric hip fracture. Patient had no post operative concerns and stated that she had significant less pain post surgery. Patients diabetes was well controlled on insulin sliding scale and patient may resume home dose of metformin. Surgery has cleared patient for discharge. Please see surgery notes for ambulatory guidelines and pain control post surgery. - Discharge Data Discharge Date: 12/20/19 Discharge Disposition: Home, Self-Care 01 Condition: Good - Referral to Home Health Primary Care Physician: Silverio Guzmán MD - Patient Summary/Data Operative Procedure(s) Performed: Intramedullary nailing of left reverse oblique intertrochanteric hip fracture Consults: Consultations 12/18/19 10:13 Consult to Physician [CONS] Routine 12/18/19 15:31 PT Evaluation and Treatment [CONS] Routine - Patient Instructions Diet: Usual Diet as Tolerated Activity, Other: weight bearing as tolerates to left leg with use of walker Driving, Other: May drive when able to independently get in/out of vehicle & off narcotics Showering/Bathing: May Shower (may shower over AquaCell bandages.), No Tub Bathing/Swimming Notify Provider of: Fever, Increased Pain, Swelling and Redness, Drainage Other/Special Instructions: ice to left hip/left thigh 15-20 minutes every 2-3 hours to minimize swelling & pain. - Discharge Plan *PRESCRIPTION DRUG MONITORING PROGRAM REVIEWED*: Not Applicable *COPY OF PRESCRIPTION DRUG MONITORING REPORT IN PATIENT [place]: Not Applicable Prescriptions/Med Rec: Aspirin 325 mg PO DAILY #90 tablet Ibuprofen [Motrin] 800 mg PO Q8H #60 tablet oxyCODONE 5 mg PO Q4H PRN #20 tablet PRN Reason: Pain Home Medications: Home Meds Hydrochlorothiazide 12.5 mg PO DAILY 09/16/16 [History] metFORMIN HCl [Metformin HCl] 500 mg PO BID 09/16/16 [History] Lisinopril 10 mg PO DAILY 06/26/17 [History] Gabapentin [Neurontin] 600 mg PO TID 05/30/18 [History] busPIRone HCl [Buspirone HCl] 7.5 mg PO BID 05/30/18 [History] Acetaminophen [Tylenol] 650 mg PO Q4H PRN tablet 12/19/19 [Rx] Aspirin 325 mg PO DAILY #90 tablet 12/19/19 [Rx] Docusate Sodium [Colace] 100 mg PO BID PRN cap 12/19/19 [Rx] Ibuprofen [Motrin] 800 mg PO Q8H #60 tablet 12/19/19 [Rx] polyethylene glycoL 3350 [MiraLAX] 17 gm PO DAILY packet 12/19/19 [Rx] Gabapentin [Neurontin] 600 mg PO TID cap 12/20/19 [Rx] oxyCODONE 5 mg PO Q4H PRN #20 tablet 12/20/19 [Rx] Patient Handouts: Oxycodone tablets or capsules, Ibuprofen tablets and capsules, Intramedullary Nailing of Hip Fracture, Care After, Hip Fracture, As pirin capsules or tablets extended release Referrals: Melissa Sol NP [Nurse Practitioner] - 01/06/20 11:20 am Silverio Guzmán MD [Primary Care Provider] - - Discharge Summary/Plan Comment DC Time >30 min.: No - Review of Systems General: Denies: Fever, Fatigue, Chills Pulmonary: Denies: Shortness of Breath, Pleuritic Chest Pain, Cough Cardiovascular: Denies: Chest Pain, Dyspnea on Exertion, Orthopnea Gastrointestinal: Denies: Abdominal Pain, Decreased Appetite, Diarrhea Genitourinary: Denies: Dysuria, Burning Musculoskeletal: Reports: Other (Left Hip tenderness ) Neurological: Denies: Confusion, Dizziness, Headache - Patient Data Vitals - Most Recent: Last Vital Signs Temp 97.8 F 12/20/19 08:00 Pulse 91 12/20/19 08:00 Resp 16 12/20/19 08:00 BP 125/67 12/20/19 08:42 Pulse Ox 96 12/20/19 08:00 Weight - Most Recent: 226 lb I&O - Last 24 hours: Intake & Output 12/19/19 12/20/19 12/20/19 22:59 06:59 14:59 Intake Total 400 550 Output Total 1475 700 Balance -1075 -150 Lab Results - Last 24 hrs: Laboratory Results - last 24 hr 12/19/19 12/19/19 12/20/19 Range/Units 11:51 17:30 05:56 WBC 7.45 (4.0-11.0) K/uL RBC 3.75 L (4.30-5.90) M/uL Hgb 11.0 L (12.0-16.0) g/dL Hct 32.9 L (36.0-46.0) % MCV 87.7 (80.0-98.0) fL MCH 29.3 (27.0-32.0) pg MCHC 33.4 (31.0-37.0) g/dL RDW Std Deviation 41.4 (28.0-62.0) fl RDW Coeff of Thor 13 (11.0-15.0) % Plt Count 186 (150-400) K/uL MPV 9.50 (7.40-12.00) fL Neut % (Auto) 68.3 (48.0-80.0) % Lymph % (Auto) 24.3 (16.0-40.0) % [place] % (Auto) 5.6 (0.0-15.0) % Eos % (Auto) 1.7 (0.0-7.0) % Baso % (Auto) 0.1 (0.0-1.5) % Neut # (Auto) 5.1 (1.4-5.7) K/uL Lymph # (Auto) 1.8 (0.6-2.4) K/uL [place] # (Auto) 0.4 (0.0-0.8) K/uL Eos # (Auto) 0.1 (0.0-0.7) K/uL Baso # (Auto) 0.0 (0.0-0.1) K/uL Nucleated RBC % 0.0 /100WBC Nucleated RBCs # 0 K/uL Sodium (136-145) mmol/L Potassium (3.5-5.1) mmol/L Chloride (98-107) mmol/L Carbon Dioxide (21.0-32.0) mmol/L BUN (7.0-18.0) mg/dL Creatinine (0.6-1.0) mg/dL Est Cr Clr Drug Dosing mL/min Estimated GFR (MDRD) ml/min Glucose (74-106) mg/dL POC Glucose 152 H 122 H (60-110) mg/dL Calcium (8.5-10.1) mg/dL 12/20/19 12/20/19 12/20/19 Range/Units 05:56 05:56 08:01 WBC (4.0-11.0) K/uL RBC (4.30-5.90) M/uL Hgb (12.0-16.0) g/dL Hct (36.0-46.0) % MCV (80.0-98.0) fL MCH (27.0-32.0) pg MCHC (31.0-37.0) g/dL RDW Std Deviation (28.0-62.0) fl RDW Coeff of Thor (11.0-15.0) % Plt Count (150-400) K/uL MPV (7.40-12.00) fL Neut % (Auto) (48.0-80.0) % Lymph % (Auto) (16.0-40.0) % [place] % (Auto) (0.0-15.0) % Eos % (Auto) (0.0-7.0) % Baso % (Auto) (0.0-1.5) % Neut # (Auto) (1.4-5.7) K/uL Lymph # (Auto) (0.6-2.4) K/uL [place] # (Auto) (0.0-0.8) K/uL Eos # (Auto) (0.0-0.7) K/uL Baso # (Auto) (0.0-0.1) K/uL Nucleated RBC % /100WBC Nucleated RBCs # K/uL Sodium 140 (136-145) mmol/L Potassium 3.4 L (3.5-5.1) mmol/L Chloride 102 (98-107) mmol/L Carbon Dioxide 30.4 (21.0-32.0) mmol/L BUN 11 (7.0-18.0) mg/dL Creatinine 0.5 L (0.6-1.0) mg/dL Est Cr Clr Drug Dosing 107.64 mL/min Estimated GFR (MDRD) > 60.0 ml/min Glucose 124 H (74-106) mg/dL POC Glucose 131 H 133 H (60-110) mg/dL Calcium 7.3 L (8.5-10.1) mg/dL Med Orders - Current: Current Medications Acetaminophen (Tylenol) 650 mg PO Q4H PRN PRN Reason: Fever Al Hydroxide/Mg Hydroxide (Mag-Al Plus) 30 ml PO Q4H PRN PRN Reason: Indigestion Albuterol (Proventil Neb Soln) 2.5 mg NEB ONETIME PRN PRN Reason: Wheezing Aspirin (Aspirin) 325 mg PO DAILY [facility] Last Admin: 12/20/19 08:41 Dose: 325 mg Documented by: Bisacodyl (Dulcolax) 10 mg RECTAL DAILY PRN PRN Reason: Constipation Buspirone HCl (Buspar) 7.5 mg PO BID [facility] Last Admin: 12/20/19 08:44 Dose: 7.5 mg Documented by: Dextrose/Water (Dextrose 50% In Water) 50 ml IVPUSH ASDIRECTED PRN PRN Reason: Hypoglycemia Diphenhydramine HCl (Benadryl) 25 - 50 mg PO Q6H PRN PRN Reason: Itching Docusate Sodium (Colace) 100 mg PO BID PRN PRN Reason: Constipation Gabapentin (Neurontin) 600 mg PO TID [facility] Last Admin: 12/20/19 05:55 Dose: 600 mg Documented by: Hydrochlorothiazide (Hydrochlorothiazide) 12.5 mg PO DAILY [facility] Last Admin: 12/20/19 08:38 Dose: 12.5 mg Documented by: Hydromorphone HCl (Dilaudid) 1 mg IVPUSH Q4H PRN PRN Reason: severe Pain Ibuprofen (Motrin) 800 mg PO Q8H [facility] Last Admin: 12/20/19 08:40 Dose: 800 mg Documented by: Insulin Aspart (Novolog) 0 unit SUBCUT TIDAC [facility]; Protocol Last Admin: 12/20/19 06:34 Dose: Not Given Documented by: Lisinopril (Prinivil) 10 mg PO DAILY [facility] Last Admin: 12/20/19 08:42 Dose: 10 mg Documented by: Metformin HCl (Glucophage) 500 mg PO BID [facility] Naloxone HCl (Narcan) 0.1 mg IVPUSH ASDIRECTED PRN PRN Reason: Respiratory Depression Oxycodone HCl (Oxycodone) 5 - 10 mg PO Q4H PRN PRN Reason: Pain Last Admin: 12/20/19 08:44 Dose: 5 mg Documented by: Polyethylene Glycol (Miralax) 17 gm PO DAILY [facility] Last Admin: 12/20/19 08:47 Dose: Not Given Documented by: Sodium Chloride (Saline Flush) 10 ml FLUSH ASDIRECTED PRN PRN Reason: Keep Vein Open Last Admin: 12/17/19 15:09 Dose: 10 ml Documented by: Sodium Chloride (Saline Flush) 2.5 ml FLUSH ASDIRECTED PRN PRN Reason: Keep Vein Open Last Admin: 12/17/19 15:09 Dose: 2.5 ml Documented by: Discontinued Medications Aspirin (Aspirin) 325 mg PO DAILY [facility] Aspirin (Aspirin) 325 mg PO DAILY [facility] Last Admin: 12/18/19 20:19 Dose: Not Given Documented by: Atropine Sulfate (Atropine 0.1 Mg/Ml) 0.5 mg IVPUSH ASDIRECTED PRN PRN Reason: Hypo-perfusion Atropine Sulfate (Atropine 0.1 Mg/Ml) 1 mg IVPUSH ASDIRECTED PRN PRN Reason: Hypo-Perfusion Bupivacaine HCl (Sensorcaine-Mpf 0.5%) Confirm Administered Dose 10 ml .ROUTE .STK-MED ONE Stop: 12/18/19 12:43 Cefazolin Sodium/Dextrose (Ancef) Confirm Administered Dose 2 gm IV .STK-MED ONE Stop: 12/18/19 13:25 Diphenhydramine HCl (Benadryl) 25 mg IVPUSH ONETIME ONE Stop: 12/17/19 22:34 Last Admin: 12/17/19 22:51 Dose: 25 mg Documented by: Ephedrine Sulfate (Ephedrine Sulfate) Confirm Administered Dose 50 mg .ROUTE .STK-MED ONE Stop: 12/18/19 13:56 Epinephrine HCl (Epinephrine 1:10,000) 1 mg IVPUSH ASDIRECTED PRN PRN Reason: ACLS Guidelines Fentanyl (Fentanyl) 100 mcg IVPUSH ONETIME ONE Stop: 12/17/19 16:57 Last Admin: 12/17/19 17:11 Dose: 100 mcg Documented by: Fentanyl (Sublimaze) Confirm Administered Dose 100 mcg .ROUTE .STK-MED ONE Stop: 12/18/19 10:02 Fentanyl (Sublimaze) 50 mcg IVPUSH Q5M PRN PRN Reason: Pain Gabapentin (Neurontin) 100 mg PO ACBREAKFAST [facility] Last Admin: 12/19/19 08:38 Dose: 100 mg Documented by: Gabapentin (Neurontin) 200 mg PO BEDTIME [facility] Last Admin: 12/18/19 21:27 Dose: 200 mg Documented by: Hydromorphone HCl (Dilaudid) 0.5 mg IVPUSH Q2H PRN PRN Reason: Pain Last Admin: 12/17/19 21:25 Dose: 0.5 mg Documented by: Hydromorphone HCl (Dilaudid) 1 mg IVPUSH Q2H PRN PRN Reason: Pain Last Admin: 12/18/19 08:29 Dose: 1 mg Documented by: Hydromorphone HCl (Dilaudid) 0.25 mg IVPUSH .Q5MIN PRN PRN Reason: Pain (severe 7-10) Stop: 12/19/19 14:47 Sodium Chloride (Normal Saline) 1,000 mls @ 125 mls/hr IV ASDIRECTED [facility] Last Admin: 12/17/19 15:09 Dose: 125 mls/hr Documented by: Lactated Ringer's (Ringers, Lactated) 1,000 mls @ 100 mls/hr IV ASDIRECTED [facility] Last Admin: 12/19/19 01:58 Dose: 100 mls/hr Documented by: Acetaminophen (Ofirmev) Confirm Administered Dose 100 mls @ as directed .ROUTE .STK-MED ONE Stop: 12/18/19 12:43 Sodium Chloride (Normal Saline) Confirm Administered Dose 20 mls @ as directed .ROUTE .STK-MED ONE Stop: 12/18/19 14:25 Cefazolin Sodium/Dextrose 2 gm (/ Premix) 50 mls @ 100 mls/hr IV Q8H [facility] Stop: 12/19/19 06:29 Last Admin: 12/19/19 11:25 Dose: Not Given Documented by: Ketorolac Tromethamine (Toradol) Confirm Administered Dose 30 mg .ROUTE .STK-MED ONE Stop: 12/18/19 14:59 Ketorolac Tromethamine (Toradol) 30 mg IVPUSH Q6H [facility] Stop: 12/19/19 05:00 Last Admin: 12/19/19 11:25 Dose: Not Given Documented by: Lidocaine HCl (Xylocaine-Mpf 1%) Confirm Administered Dose 5 ml .ROUTE .STK-MED ONE Stop: 12/18/19 10:03 Lorazepam (Ativan) 0.5 mg IVPUSH ONETIME ONE Stop: 12/17/19 22:36 Last Admin: 12/17/19 22:51 Dose: 0.5 mg Documented by: Midazolam HCl (Versed 1 Mg/Ml) Confirm Administered Dose 2 mg .ROUTE .STK-MED ONE Stop: 12/18/19 10:02 Midazolam HCl (Versed 1 Mg/Ml) Confirm Administered Dose 2 mg .ROUTE .STK-MED ONE Stop: 12/18/19 12:59 Morphine Sulfate (Morphine) 4 mg IVPUSH ONETIME ONE Stop: 12/17/19 15:00 Last Admin: 12/17/19 15:12 Dose: 4 mg Documented by: Morphine Sulfate (Morphine) 2 mg IVPUSH Q2H PRN PRN Reason: Pain Stop: 12/18/19 17:46 Ondansetron HCl (Zofran) 4 mg IVPUSH ONETIME ONE Stop: 12/17/19 15:00 Last Admin: 12/17/19 15:12 Dose: 4 mg Documented by: Ondansetron HCl (Zofran) Confirm Administered Dose 4 mg .ROUTE .STK-MED ONE Stop: 12/18/19 10:03 Ondansetron HCl (Zofran) 4 mg IVPUSH ONETIME PRN PRN Reason: Nausea or vomiting Oxycodone/Acetaminophen (Percocet 325-5 Mg) 1 tab PO Q6H [facility] Last Admin: 12/18/19 10:38 Dose: 1 tab Documented by: Phenylephrine HCl (Napoleon-Synephrine) Confirm Administered Dose 10 mg .ROUTE .STK- MED ONE Stop: 12/18/19 13:33 Phenylephrine HCl (Napoleon-Synephrine) Confirm Administered Dose 10 mg .ROUTE .STK- MED ONE Stop: 12/18/19 14:22 Potassium Chloride (Klor-Con M20) 40 meq PO ONETIME ONE Stop: 12/20/19 07:57 Last Admin: 12/20/19 08:43 Dose: 40 meq Documented by: Propofol (Diprivan 20 Ml) Confirm Administered Dose 400 mg .ROUTE .STK-MED ONE Stop: 12/18/19 10:02 Propofol (Diprivan 20 Ml) Confirm Administered Dose 400 mg .ROUTE .STK-MED ONE Stop: 12/18/19 13:44 Propofol (Diprivan 20 Ml) Confirm Administered Dose 200 mg .ROUTE .STK-MED ONE Stop: 12/18/19 14:34 Propofol (Diprivan 20 Ml) Confirm Administered Dose 200 mg .ROUTE .STK-MED ONE Stop: 12/18/19 14:34 - Exam General: Reports: Alert, Oriented HEENT: Reports: EOMI Lungs: Reports: Clear to Auscultation, Normal Respiratory Effort Cardiovascular: Reports: Regular Rate, Regular Rhythm GI/Abdominal Exam: Soft, Non-Tender, No Distention Back Exam: Reports: Normal Inspection Extremities: No Pedal Edema. No: Joint Swelling, Leg Pain Wound/Incisions: Reports: Healing Well, Dressing Dry and Intact Neurological: Reports: Normal Gait, Normal Speech
[2019-12-20 11:59] VITALS: BP 96/56; PULSE 98
[2019-12-21] MEDS ORDERED: metFORMIN 500 MG Tab PO SCH (08:00)
== END 2019-12-20 13:13 | disposition home or self-care (01) | DRG 481 ==
LOC: MW.ED 14:53 → MW.MS 17:23 → OBSVTOIN 12-18 10:19 → MW.MS 12-18 10:20
PROVIDERS: ADMIT Student in an Organized Health Care Education/Training Program; ATTEND Student in an Organized Health Care Education/Training Program
PROC: 0QS736Z Reposition Left Upper Femur with Intramedullary Internal Fixation Device, Percutaneous Approach (ICD-10-PCS; principal; 2019-12-18)
DX: S72.142A Displaced intertrochanteric fracture of left femur, initial encounter for closed fracture (principal); Z68.41 Body mass index [BMI] 40.0-44.9, adult; Z20.828 Contact with and (suspected) exposure to other viral communicable diseases; I10 Essential (primary) hypertension; E11.9 Type 2 diabetes mellitus without complications; F41.9 Anxiety disorder, unspecified; F32.9 Major depressive disorder, single episode, unspecified; Z79.84 Long term (current) use of oral hypoglycemic drugs; Z88.8 Allergy status to other drugs, medicaments and biological substances; Z79.899 Other long term (current) drug therapy; Z90.710 Acquired absence of both cervix and uterus; W01.0XXA Fall on same level from slipping, tripping and stumbling without subsequent striking against object, initial encounter
CPT/HCPCS: 36415; 51701; 51702; 51798; 71045; 71045-26; 73502-26-LT; 73502-LT; 76000; 76000-26; 80048; 80053; 81003; 82962; 85025; 85610; 85730; 86850; 86900; 86901; 93005; 96361; 96374; 96375; 97110-GP; 97161-GP; 97530-GP; 99285-25; A9270-GY; J0131; J0690; J1170; J1200; J1815-GY; J1885; J2001; J2060; J2250; J2270; J2370; J2405; J2704; J3010; J3490; J7030; J7120; U0002